=== PATIENT | female | born 1965 | race Caucasian/White ===

== ENCOUNTER 2017-03-15 15:29 | Inpatient (IN) | payer SELFPAY ==
[~2017-03-15] VITALS: Ht 157.5 cm; Wt 45.0 kg
[~2017-03-15 15:29] MED LIST: BACT800T5 PO; FENT25DI T-DERMAL; MMW SWISH-SWAL; OXYC15TA PO; ZOFR4TAB3 SL
[2017-03-15 15:31] VITALS: BP 128/82; PULSE 130; O2SAT 96
--- NOTE | 2017-03-15 15:49 | PD ---
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 Patient states that the legs have become warm and reddened over the last 3 days. She denies known injury. She denies fevers, chills, abdominal pain, nausea or vomiting. She endorses dysuria , denies back pain. Also complains of ~10lb weight loss over the last month. States that feeding tube "fell out" and doctor did not order it to be replaced. PFSH Past Medical History Hx Anticoagulant Therapy: Yes (ASA) Cancer: Yes (TONGUE) Cardiovascular Problems: No Diabetes: No Diminished Hearing: No Endocrine: No Genitourinary: No Hepatitis: No Hiatal Hernia: No Hypertension: Yes Immune Disorder: No Musculoskeletal: No Neurologic: No Psychiatric: No Reproductive: No Respiratory: Yes (COPD) Immunizations Current: Yes Thyroid Disease: No Menopausal: Yes Tubal Ligation: Yes (1986) Past Surgical History Abdominal Surgery: No AICD: No Cardiac Surgery: No Ear Surgery: No Endocrine Surgery: No Eye Surgery: No Genitourinary Surgery: No Gynecologic Surgery: No Joint Replacement: No Oral Surgery: No Pacemaker: No Thoracic Surgery: Yes (breast augmentation) Other Surgery: Yes (BREAST AUGMENTATION ) Social History Alcohol Use: Yes (VERY RARE ) Tobacco Use: No Substance Use: No Allergies-Medications (Allergen,Severity, Reaction): Coded Allergies: No Known Allergies (Unverified , 03/15/17) Reported Meds & Prescriptions Reported Meds & Active Scripts Active Reported Oxycodone (Oxycodone HCl) 15 Mg Tab 15 Mg PO Q4H PRN Fentanyl Patch 72 HR (Fentanyl) 25 Mcg/Hr Patch 12 Mcg T-DERMAL Q72H Review of Systems Except as stated in HPI: all other systems reviewed are Neg Physical Exam Narrative GENERAL: Thin, dry appearing white female in no acute distress. SKIN: Focused skin assessment warm/dry. Bilateral lower extremities with superficial desquamation, 2+ edema to the knees, nonblanching erythema with mild warmth, right greater than left. HEAD: Normocephalic. EYES: No scleral icterus. No injection or drainage. NECK: Supple, trachea midline. No JVD or lymphadenopathy. CARDIOVASCULAR: Regular rate and rhythm without murmurs, gallops, or rubs. RESPIRATORY: Breath sounds clear and equal bilaterally. No accessory muscle use. GASTROINTESTINAL: Abdomen soft, non-tender, nondistended. Active bowel sounds. MUSCULOSKELETAL: No cyanosis. Patient is ambulatory and moves extremities spontaneously. BACK: Nontender without obvious deformity. No CVA tenderness. Data Data Last Documented VS Vital Signs Date Time Temp Pulse Resp B/P Pulse Ox O2 Delivery O2 Flow Rate FiO2 03/15/17 18:43 93 12 104/63 97 Room Air Orders Complete Blood Count With Diff (03/15/17 15:58) Comprehensive Metabolic Panel (03/15/17 15:58) Prothrombin Time / Inr (Pt) (03/15/17 15:58) Act Partial Throm Time (Ptt) (03/15/17 15:58) Urinalysis - C+S If Indicated (03/15/17 15:58) Iv Access Insert/Monitor (03/15/17 15:58) Ecg Monitoring (03/15/17 15:58) Oximetry (03/15/17 15:58) Sodium Chloride 0.9% Flush (Ns Flush) (03/15/17 16:00) Sodium Chlor 0.9% 1000 Ml Inj (Ns 1000 M (03/15/17 16:00) Morphine Inj (Morphine Inj) (03/15/17 17:00) Urine Culture (03/15/17 16:53) Cefazolin Inj (Ancef Inj) (03/15/17 18:30) D5-1/2 Ns + Kcl 20 Meq Inj (D5-1/2 Ns + (03/15/17 19:00) Admit Order (Ed Use Only) (03/15/17 19:14) Labs Laboratory Tests Test 03/15/17 03/15/17 16:12 16:53 White Blood Count 6.4 TH/MM3 Red Blood Count 4.15 MIL/MM3 Hemoglobin 13.4 GM/DL Hematocrit 39.9 % Mean Corpuscular Volume 96.1 FL Mean Corpuscular Hemoglobin 32.4 PG Mean Corpuscular Hemoglobin 33.7 % Concent Red Cell Distribution Width 12.3 % Platelet Count 121 TH/MM3 Mean Platelet Volume 13.1 FL Neutrophils (%) (Auto) 85.4 % Lymphocytes (%) (Auto) 8.3 % Monocytes (%) (Auto) 5.3 % Eosinophils (%) (Auto) 0.3 % Basophils (%) (Auto) 0.7 % Neutrophils # (Auto) 5.4 TH/MM3 Lymphocytes # (Auto) 0.5 TH/MM3 Monocytes # (Auto) 0.3 TH/MM3 Eosinophils # (Auto) 0.0 TH/MM3 Basophils # (Auto) 0.0 TH/MM3 CBC Comment DIFF FINAL Differential Comment Prothrombin Time 12.7 SEC Prothromb Time International 1.1 RATIO Ratio Activated Partial 28.4 SEC Thromboplast Time Sodium Level 133 MEQ/L Potassium Level 3.2 MEQ/L Chloride Level 90 MEQ/L Carbon Dioxide Level 35.1 MEQ/L Anion Gap 8 MEQ/L Blood Urea Nitrogen 2 MG/DL Creatinine 0.28 MG/DL Estimat Glomerular Filtration 253 ML/MIN Rate Random Glucose 135 MG/DL Calcium Level 8.1 MG/DL Total Bilirubin 1.2 MG/DL Aspartate Amino Transf 101 U/L (AST/SGOT) Alanine Aminotransferase 32 U/L (ALT/SGPT) Alkaline Phosphatase 389 U/L Total Protein 6.0 GM/DL Albumin 1.9 GM/DL Urine Color YELLOW Urine Turbidity CLEAR Urine pH 5.0 Urine Specific [place] 1.003 Urine Protein NEG mg/dL Urine Glucose (UA) NEG mg/dL Urine Ketones NEG mg/dL Urine Occult Blood NEG Urine Nitrite NEG Urine Bilirubin NEG Urine Urobilinogen LESS THAN 2.0 MG/DL Urine Leukocyte Esterase LARGE Urine RBC LESS THAN 1 /hpf Urine WBC 10 /hpf Urine Bacteria RARE /hpf Urine Hyaline Casts 1 /lpf Microscopic Urinalysis Comment CULTURE INDICATED MDM Medical Decision Making Medical Screen Exam Complete: Yes Emergency Medical Condition: Yes Differential Diagnosis Dependent edema versus renal failure versus cellulitis versus electrolyte abnormality versus Narrative Course 51 YO F with PMH of 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 Patient states that the legs have become warm and reddened over the last 3 days. She denies known injury. She denies fevers, chills, abdominal pain, nausea or vomiting. She endorses dysuria , denies back pain. Also complains of ~10lb weight loss over the last month. States that feeding tube "fell out" and doctor did not order it to be replaced. She states that she has been drinking Ensure, cannot eat solid food. Oncology Dr. Shelton. Last feeding tube placed by , [facility]. Patient is tachycardic on presentation but this resolved in the exam room. Physical exam reveals a thin white female in no acute distress. Chest is clear to auscultation bilaterally. Abdomen soft and nontender. There is 2+ pitting edema to the knees bilaterally. There is mild erythema and warmth of the bilateral lower extremities, right leg greater than left. Patient was administered 4 mg IV morphine. CBC: WBC 6.4. Hemoglobin 13.4. Coags: INR 1.1. CMP: Calcium 8.1, potassium 3.2. Albumin 1.9. BUN 2, creatinine 0.28. Bilirubin 1.2, AST 101. UA: Large leukocyte Estrace, 10 WBCs, rare bacteria. Culture pending. Patient was administered IV Ancef, IV hydralazine, D5 half-normal saline and 20 mg potassium ordered. On recheck she complains of pain and was administered a second dose of IV morphine. Discussed the results of the workup with the patient as well as my intent to admit for further evaluation. She is agreeable to this plan. I spoke with Dr. Fischer who agrees to accept this patient to the medical service. Please see medicine notes for disposition. Carli Douglas Mar 15, 2017 15:49
[2017-03-15] MEDS ORDERED: SODIUM CHLORIDE 0.9% FLUSH 10 ML FLUSH IV FLUSH PRN (16:00)
[2017-03-15] MEDS ORDERED: SODIUM CHLOR 0.9% 1000 ML INJ 1,000 ML IV ONE (16:00)
[2017-03-15 16:02] VITALS: BP 113/82; PULSE 118; RESP 16; O2SAT 95
[2017-03-15] MEDS ORDERED: FENT25DI T-DERMAL (16:09)
[2017-03-15] MEDS ORDERED: OXYC15TA PO (16:09)
[2017-03-15 16:48] LABS: AUTOMATED NEUTROPHIL # 5.4 TH/MM3 (1.8-7.7); BASOPHIL % 0.7 % (0.0-2.0); EOSINOPHIL % 0.3 % (0.0-4.0); HEMATOCRIT 39.9 % (35.0-46.0); HEMO FLAGS DIFF FINAL; LYMPH % 8.3 % (9.0-44.0); LYMPHOCYTE # 0.5 TH/MM3 (1.0-4.8); MEAN CELL VOLUME 96.1 FL (80.0-100.0); MEAN CORPUSCULAR HEMOGLOBIN 32.4 PG (27.0-34.0); MEAN CORPUSCULAR HGB CONC 33.7 % (32.0-36.0); MONO % 5.3 % (0.0-8.0); NEUT % 85.4 % (16.0-70.0); PLATELET COUNT 121 TH/MM3 (150-450); RED BLOOD COUNT 4.15 MIL/MM3 (4.00-5.30); RED CELL DISTRIBUTION WIDTH 12.3 % (11.6-17.2); WHITE BLOOD COUNT 6.4 TH/MM3 (4.0-11.0)
[2017-03-15 16:52] VITALS: BP 131/71; PULSE 96; RESP 23; O2SAT 97
[2017-03-15 16:58] LABS: APTT (PATIENT) 28.4 SEC (24.3-30.1); INTERNATIONAL NORMALIZED RATIO 1.1 RATIO; PROTHROMBIN TIME - PATIENT 12.7 SEC (9.8-11.6)
[2017-03-15] MEDS ORDERED: MORPHINE SULFATE 4 MG/ML INJ IV PUSH ONE ×2 (17:00→19:30)
[2017-03-15 17:14] LABS: BACTERIA, URINE RARE /hpf; BLOOD, URINE NEG (NEG); COMMENT (UR) CULTURE INDICATED; CULTURE IF INDICATED CULTURE INDICATED; GLUCOSE,URINE NEG (NEG); HYALINE CAST, URINE 1 /lpf (RARE); KETONE, URINE NEG (NEG); NITRITE,URINE NEG (NEG); URINE COLOR YELLOW (YELLW/STRAW)
[2017-03-15] MEDS ORDERED: hydrALAZINE HCL 20 MG/ML VIAL IV PUSH ONE (17:15)
[2017-03-15 17:28] LABS: ALKALINE PHOSPHATASE 389 U/L (45-117); ALT (GPT) 32 U/L (10-53); TOTAL BILIRUBIN ADULT 1.2 MG/DL (0.2-1.0)
[2017-03-15 17:53] LABS: ANION GAP 8 MEQ/L (5-15); AST (GOT) 101 U/L (15-37); BICARBONATE 35.1 MEQ/L (21.0-32.0); BLOOD UREA NITROGEN 2 MG/DL (7-18); CHLORIDE 90 MEQ/L (98-107); GLOMERULAR FILTRATION RATE 253 ML/MIN (>89); POTASSIUM 3.2 MEQ/L (3.5-5.1); SODIUM (NA) 133 MEQ/L (136-145)
[2017-03-15 18:43] VITALS: BP 104/63; PULSE 93; RESP 12; O2SAT 97
[2017-03-15 19:50] VITALS: BP 109/69; PULSE 81; RESP 22; O2SAT 97
[2017-03-15] MEDS: D5-1/2 NS + KCL 20 MEQ INJ 1,000 ML IV SCH (19:51)
[2017-03-15 22:00] VITALS: BP_SYST 110; BP_SYST 90; BP_DIAS 67; BP_DIAS 68; PULSE 79; PULSE 95; RESP 18; RESP 19; TEMP 96.1; TEMP 97.6; O2SAT 93; O2SAT 97
[2017-03-16 03:00] VITALS: BP 101/70; PULSE 98; RESP 18; TEMP 96.8; O2SAT 94
[2017-03-16] MEDS: D5-1/2 NS + KCL 20 MEQ INJ 1,000 ML IV SCH ×2 (07:16→16:16)
[2017-03-16 07:50] VITALS: BP 94/67; PULSE 82; RESP 20; TEMP 96.1; O2SAT 95
--- NOTE | 2017-03-16 07:55 | HHI.HP ---
History of Present Illness Service Family Primary Care Physician Dr. Sharma Admission Diagnosis RLE cellulitis, UTI, hypokalemia, hypocalcemia, hypoalbuminemia Diagnoses: (1) Cancer (2) Dysphagia Review of Systems Constitutional: COMPLAINS OF: Fatigue, Weight loss, Change in appetite, DENIES : Dizziness Respiratory: DENIES: Cough, Snoring, Wheezing, Sputum production, Shortness of breath Cardiovascular: COMPLAINS OF: Lower Extremity Edema, DENIES: Chest pain, Syncope, Dyspnea on Exertion Gastrointestinal: COMPLAINS OF: Difficulty Swallowing, DENIES: Abdominal pain , Black stools, Bloody stools, Constipation, Diarrhea, Vomiting Neurologic: DENIES: Headache, Seizures, Poor Balance Psychiatric: DENIES: Anxiety, Depression Past Family Social History Allergies: Coded Allergies: No Known Allergies (Unverified , 03/15/17) Past Medical History Squamous cancer of tongue HTN Past Surgical History S/P right partial glossectomy and lymph node dissection Breast augmentation Active Ordered Medications Current Medications Medications (Trade) Dose Ordered Sig/Sagar Route Start Time Stop Time Status Last Admin Sodium Chloride 2 ml 2 ml UNSCH PRN IV FLUSH 03/15/17 16:00 (D5-1/2 NS + KCl 20 Meq Inj) 1,000 ml @ 100 mls/hr Q10H IV 03/15/17 19:00 03/16/17 07:16 (Roxicodone) 15 mg Q4H PRN PO 03/15/17 20:00 03/16/17 07:15 Family History Father kidney disease on dialysis Mother healthy Social History Quit smoking 1 year ago Occasional ETOH use Lives with Is a drywall hanger helper Physical Exam Vital Signs Vital Signs Date Time Temp Pulse Resp B/P Pulse Ox O2 Delivery O2 Flow Rate FiO2 03/16/17 03:00 96.8 98 18 101/70 94 03/15/17 23:58 16 03/15/17 22:00 97.6 95 18 90/67 93 03/15/17 22:00 96.1 79 19 110/68 97 03/15/17 19:50 81 22 109/69 97 Room Air 03/15/17 18:43 93 12 104/63 97 Room Air 03/15/17 16:52 96 23 131/71 97 Room Air 03/15/17 16:02 118 16 113/82 95 Room Air 03/15/17 15:31 130 128/82 96 Physical Exam GENERAL: This is a thin female in no apparent distress. SKIN: No rashes, ecchymoses or lesions. Cool and dry. Bilateral low extremity with minimal redness ENT: Nose without bleeding or purulent drainage. Tongue is swollen NECK: Trachea midline. No JVD or lymphadenopathy. Supple, nontender, no meningeal signs. CARDIOVASCULAR: Regular rate and rhythm without murmurs, gallops, or rubs. RESPIRATORY: Clear to auscultation. Breath sounds equal bilaterally. No wheezes , rales, or rhonchi. GASTROINTESTINAL: Abdomen soft, non-tender, nondistended. No guarding. MUSCULOSKELETAL: Extremities with minimal edema. No calf tenderness. Negative Homans sign bilaterally. NEUROLOGICAL: Awake and alert. Normal speech. Laboratory Laboratory Tests Test 03/15/17 03/15/17 16:12 16:53 White Blood Count 6.4 Red Blood Count 4.15 Hemoglobin 13.4 Hematocrit 39.9 Mean Corpuscular Volume 96.1 Mean Corpuscular Hemoglobin 32.4 Mean Corpuscular Hemoglobin 33.7 Concent Red Cell Distribution Width 12.3 Platelet Count 121 Mean Platelet Volume 13.1 Neutrophils (%) (Auto) 85.4 Lymphocytes (%) (Auto) 8.3 Monocytes (%) (Auto) 5.3 Eosinophils (%) (Auto) 0.3 Basophils (%) (Auto) 0.7 Neutrophils # (Auto) 5.4 Lymphocytes # (Auto) 0.5 Monocytes # (Auto) 0.3 Eosinophils # (Auto) 0.0 Basophils # (Auto) 0.0 CBC Comment DIFF FINAL Differential Comment Prothrombin Time 12.7 Prothromb Time International 1.1 Ratio Activated Partial 28.4 Thromboplast Time Sodium Level 133 Potassium Level 3.2 Chloride Level 90 Carbon Dioxide Level 35.1 Anion Gap 8 Blood Urea Nitrogen 2 Creatinine 0.28 Estimat Glomerular Filtration 253 Rate Random Glucose 135 Calcium Level 8.1 Total Bilirubin 1.2 Aspartate Amino Transf 101 (AST/SGOT) Alanine Aminotransferase 32 (ALT/SGPT) Alkaline Phosphatase 389 Total Protein 6.0 Albumin 1.9 Urine Color YELLOW Urine Turbidity CLEAR Urine pH 5.0 Urine Specific [place] 1.003 Urine Protein NEG Urine Glucose (UA) NEG Urine Ketones NEG Urine Occult Blood NEG Urine Nitrite NEG Urine Bilirubin NEG Urine Urobilinogen LESS THAN 2.0 Urine Leukocyte Esterase LARGE Urine RBC LESS THAN 1 Urine WBC 10 Urine Bacteria RARE Urine Hyaline Casts 1 Microscopic Urinalysis Comment CULTURE INDICATED Date/Time Procedure Status Source Growth 03/15/17 16:53 Urine Culture Received Urine Random Urine Pending Result Diagram: 03/15/17 1612 03/15/17 1612 Assessment and Plan Problem List: (1) Dysphagia Status: Acute Plan: GI consult for feeding tube placement. Patient with history of G which fell out in December. She has been trying to drink protein drinks however has had weight loss. Tongue is swollen and she is reporting difficulty swallowing. Will consult ST for evaluation (2) Cancer Status: Chronic Plan: Followed by [facility]. (3) Edema Status: Acute Plan: 1+ edema in lower extremity. Patient reports that her edema has improved. (4) Cellulitis Status: Acute Plan: Will order cefazolin. (5) Hypokalemia Status: Acute Plan: Recheck pending. On IVF D51/2 NS with 20 KCL Assessment and Plan Assessment and plan discussed with Dr. Sharma Discussed Condition With Nursing Discharge Planning Will evaluate Physician Attestation I and the WIRE WHEELER have both examined this patient and reviewed this note and I agree with these findings and plan of care. Penny Barragan. WIRE WHEELER Mar 16, 2017 7:55 am
[2017-03-16 08:26] LABS: AUTOMATED NEUTROPHIL # 3.2 TH/MM3 (1.8-7.7); EOSINOPHIL # 0.1 TH/MM3 (0-0.4); EOSINOPHIL % 2.5 % (0.0-4.0); HEMATOCRIT 35.3 % (35.0-46.0); LYMPH % 8.3 % (9.0-44.0); LYMPHOCYTE # 0.3 TH/MM3 (1.0-4.8); MEAN CELL VOLUME 94.4 FL (80.0-100.0); MEAN CORPUSCULAR HEMOGLOBIN 33.1 PG (27.0-34.0); MEAN CORPUSCULAR HGB CONC 35.1 % (32.0-36.0); MONO % 7.1 % (0.0-8.0); NEUT % 81.1 % (16.0-70.0); PLATELET COUNT 91 TH/MM3 (150-450); RED BLOOD COUNT 3.73 MIL/MM3 (4.00-5.30); RED CELL DISTRIBUTION WIDTH 12.4 % (11.6-17.2)
[2017-03-16 08:32] LABS: HEMO FLAGS AUTO DIFF
[2017-03-16 08:51] LABS: ALKALINE PHOSPHATASE 309 U/L (45-117); ALT (GPT) 21 U/L (10-53); ANION GAP 8 MEQ/L (5-15); AST (GOT) 68 U/L (15-37); BICARBONATE 35.1 MEQ/L (21.0-32.0); BLOOD UREA NITROGEN LESS THAN 1 MG/DL (7-18); CHLORIDE 97 MEQ/L (98-107); GLOMERULAR FILTRATION RATE 288 ML/MIN (>89); SODIUM (NA) 140 MEQ/L (136-145); TOTAL BILIRUBIN ADULT 1.5 MG/DL (0.2-1.0)
[2017-03-16 09:01] LABS: POTASSIUM 2.8 MEQ/L (3.5-5.1)
[2017-03-16 09:20] LABS: PLATELET ESTIMATE SMEAR LOW (NORMAL); PLATELET MORPHOLOGY NORMAL (NORMAL); STOMATOCYTES 1+ (NORMAL)
[2017-03-16 09:21] LABS: SCAN/DIFF AUTO DIFF CONFIRMED
[2017-03-16] MEDS ORDERED: POTASSIUM CHLORIDE 25 MEQ EFFERVESCENT TAB PO ONE ×2 (10:00→12:00)
[2017-03-16] MEDS: ENOXAPARIN SODIUM 40 MG/0.4 ML SYRINGE SQ SCH (10:39)
[2017-03-16] MEDS: ceFAZolin INJ 500 MG in SODIUM CHLORIDE 0.9% INJ 100 ML IV SCH ×2 (11:41→16:12)
[2017-03-16] MEDS: FAMOTIDINE 20 MG/2 ML VIAL IV PUSH SCH ×2 (11:41→20:09)
[2017-03-16 11:50] VITALS: BP 98/69; PULSE 81; RESP 20; TEMP 96.2; O2SAT 93
[2017-03-16 15:50] VITALS: BP 100/70; PULSE 83; RESP 20; TEMP 96.1; O2SAT 96
[2017-03-16] MEDS ORDERED: fentaNYL 25 MCG/HR PATCH T-DERMAL SCH (18:00)
[2017-03-16 21:30] VITALS: BP 110/76; PULSE 77; RESP 16; TEMP 96.6; O2SAT 97
[2017-03-17] VITALS: BP 119/73; PULSE 74; RESP 16; TEMP 98.4; O2SAT 96
[2017-03-17] MEDS: D5-1/2 NS + KCL 20 MEQ INJ 1,000 ML IV SCH ×3 (00:47→20:45)
[2017-03-17] MEDS: ceFAZolin INJ 500 MG in SODIUM CHLORIDE 0.9% INJ 100 ML IV SCH ×3 (00:51→16:48)
[2017-03-17 04:00] VITALS: BP 118/82; PULSE 70; RESP 16; TEMP 97.8; O2SAT 97
[2017-03-17 06:47] LABS: AUTOMATED NEUTROPHIL # 2.1 TH/MM3 (1.8-7.7); EOSINOPHIL # 0.1 TH/MM3 (0-0.4); EOSINOPHIL % 4.2 % (0.0-4.0); HEMATOCRIT 35.3 % (35.0-46.0); LYMPH % 11.2 % (9.0-44.0); LYMPHOCYTE # 0.3 TH/MM3 (1.0-4.8); MEAN CELL VOLUME 96.4 FL (80.0-100.0); MEAN CORPUSCULAR HEMOGLOBIN 33.4 PG (27.0-34.0); MEAN CORPUSCULAR HGB CONC 34.7 % (32.0-36.0); MONO % 7.8 % (0.0-8.0); NEUT % 75.8 % (16.0-70.0); PLATELET COUNT 87 TH/MM3 (150-450); RED BLOOD COUNT 3.66 MIL/MM3 (4.00-5.30); RED CELL DISTRIBUTION WIDTH 12.4 % (11.6-17.2); WHITE BLOOD COUNT 2.8 TH/MM3 (4.0-11.0)
[2017-03-17] MEDS: ENOXAPARIN SODIUM 40 MG/0.4 ML SYRINGE SQ SCH (06:47)
[2017-03-17 06:58] LABS: HEMO FLAGS AUTO DIFF
--- NOTE | 2017-03-17 07:04 | HHI.PR ---
Subjective Remarks Denies any CP or SOB. Tolerating full liquids. Reports that she has a consult with plastic surgery tomorrow for reconstruction of tongue. She will call to reschedule Objective Vital Signs Date Time Temp Pulse Resp B/P Pulse Ox O2 Delivery O2 Flow Rate FiO2 03/17/17 05:38 18 03/17/17 04:00 97.8 70 16 118/82 97 03/17/17 00:00 98.4 74 16 119/73 96 03/16/17 21:30 96.6 77 16 110/76 97 03/16/17 19:00 18 03/16/17 15:50 96.1 83 20 100/70 96 03/16/17 11:50 96.2 81 20 98/69 93 03/16/17 07:50 96.1 82 20 94/67 95 I/O 03/16/17 03/16/17 03/16/17 03/17/17 03/17/17 03/17/17 07:00 15:00 23:00 07:00 15:00 23:00 Intake Total 240 ml 530 ml Balance 240 ml 530 ml Intake Oral 240 ml 530 ml # Voids 2 3 2 # Bowel Movements 0 0 Result Diagram: 03/16/17 0556 03/16/172122 Other Results GENERAL: alert and cooperative SKIN: Warm and dry. HEAD: Normocephalic. EYES: No scleral icterus. No injection or drainage. NECK: Supple, trachea midline. No JVD or lymphadenopathy. CARDIOVASCULAR: Regular rate and rhythm without murmurs, gallops, or rubs. RESPIRATORY: Breath sounds equal bilaterally. No accessory muscle use. GASTROINTESTINAL: Abdomen soft, non-tender, nondistended. MUSCULOSKELETAL: No cyanosis, or edema. BACK: Nontender without obvious deformity. No CVA tenderness. Medications and IVs Current Medications Medications (Trade) Dose Ordered Sig/Sagar Route Start Time Stop Time Status Last Admin Sodium Chloride 2 ml 2 ml UNSCH PRN IV FLUSH 03/15/17 16:00 (D5-1/2 NS + KCl 20 Meq Inj) 1,000 ml @ 100 mls/hr Q10H IV 03/15/17 19:00 03/17/17 00:47 (Roxicodone) 15 mg Q4H PRN PO 03/15/17 20:00 03/17/17 04:38 (Pepcid Inj) 20 mg Q12H IV PUSH 03/16/17 09:00 03/16/17 20:09 Enoxaparin Sodium 40 mg 40 mg Q24H SQ 03/16/17 08:00 03/16/17 10:39 (Ancef Inj/NS Inj) 100 ml @ 200 mls/hr Q8H IV 03/16/17 09:00 03/17/17 00:51 (Duragesic 25 Mcg Patch.72 Hr) 1 patch Q3D T-DERMAL 03/16/17 18:00 03/16/17 18:00 Miscellaneous Information 1 Q3D T-DERMAL 03/19/17 18:00 (K-Lyte Cl Eff) 25 meq Q12HR PO 03/17/17 09:00 Assessment and Plan Problem List: (1) Dysphagia Status: Acute Plan: GI consult for feeding tube placement. Patient with history of G which fell out in December. She has been trying to drink protein drinks however has had weight loss. Tongue is swollen and she is reporting difficulty swallowing anything but liquids. She is currently using as straw. ST consulted and evaluated recommending continuation of full liquid. (2) Cancer Status: Chronic Plan: Squamous cell carcinoma of tongue. Followed by [facility]. (3) Edema Status: Acute Plan: Resolved. Patient reports that her edema has improved. (4) Cellulitis Status: Acute Plan: On cefazolin redness minimal will continue (5) Hypokalemia Status: Acute Plan: K 2.8 yesterday. Total of 75 meq KCL replacement given with a recheck of 4.1 will continue IVF fluids. Daily potassium added. Labs pending this am (6) Chronic pain Status: Acute Plan: Fentanyl patch increased per Dr. Sharma. Reports improved pain controll Assessment and Plan Assessment and plan discussed with Dr. Sharma Discussed Condition With Nursing. Requested nursing to contact GI about consult Discharge Planning Home with [facility] Physician Attestation I and the PROCESS STRIPPER have examined this patient and reviewed this note and I agree with these findings and plan of care. Penny Barragan PROCESS STRIPPER Mar 17, 2017 07:04
[2017-03-17 07:10] LABS: BICARBONATE 28.2 MEQ/L (21.0-32.0); MAGNESIUM 1.7 MG/DL (1.5-2.5); POTASSIUM 3.8 MEQ/L (3.5-5.1)
[2017-03-17 08:00] VITALS: BP 115/76; PULSE 80; RESP 17; TEMP 96.4; O2SAT 96
[2017-03-17 08:09] LABS: PLATELET ESTIMATE SMEAR LOW (NORMAL); PLATELET MORPHOLOGY NORMAL (NORMAL); SCAN/DIFF AUTO DIFF CONFIRMED
[2017-03-17] MEDS: POTASSIUM CHLORIDE 25 MEQ EFFERVESCENT TAB PO SCH ×2 (09:00→20:43)
[2017-03-17] MEDS: FAMOTIDINE 20 MG/2 ML VIAL IV PUSH SCH ×2 (09:02→20:43)
--- NOTE | 2017-03-17 09:18 | MB ---
cc: LEROY WHEELER D.O., HARRY M.D. DATE OF 1965 DATE OF CONSULTATION 03/17/[address] Salvador Hernandez. HISTORY OF PRESENT ILLNESS The patient is a 51-year-old white female I was asked to see for further evaluation and management of dysphagia. She had squamous cell carcinoma of the tongue diagnosed about a year ago, received surgery and radiation therapy but no chemotherapy. A gastrostomy tube had been inserted because of her oropharyngeal dysphagia but the tube fell out about three months ago. She has not been able to maintain her weight and has had difficulty with her swallowing because of the thickened tongue. She has lost about 15 pounds over the past 3 months. She has only been consuming about 2 cans of Ensure per day. She was admitted to the hospital because of lower extremity edema. Cellulitis was discovered as well as urinary tract infection and hypokalemia and hypocalcemia and hypoalbuminemia. PAST MEDICAL HISTORY Medical history is otherwise significant for hypertension. PAST SURGICAL HISTORY 1. Status post right partial glossectomy and lymph node dissection. 2. History of breast augmentation. ALLERGIES None known to medications. MEDICATIONS AT THIS TIME 1. Fentanyl patch. 2. Famotidine 20 mg IV q.12 hours. 3. Cephazolin 500 mg IV q.8 hours. 4. Lovenox injections. 5. Oxycodone p.r.n. 6. Potassium chloride. 7. Sodium chloride. FAMILY HISTORY Kidney disease. SOCIAL HISTORY Tobacco use none in the year. Alcohol use occasional. REVIEW OF SYSTEMS She has had no recent headaches. No history of seizures or strokes. No vision difficulties. No auditory problems. No abdominal pain. No chest pains or breathing difficulties. No urinary symptomatology despite the finding of a urinary tract infection. She has had no lower extremity edema. No history of pancreatic or liver disease. No history of diabetes. PHYSICAL EXAMINATION VITAL SIGNS: Her weight is 43.8 kg, temperature 97.8, pulse 70, respiratory rate 16, blood pressure 118/82. GENERAL: She is alert. She is oriented x 3. She is anicteric. She is thin. HEENT: Extraocular motions are intact. I appreciate some thickening and tenderness in the anterior and right side of the neck. No definite lymph nodes are palpable. LUNGS: Relatively clear throughout. HEART EXAM: Regular rate and rhythm with no gross murmur or gallop. ABDOMINAL EXAM: Good bowel sounds. Prior G-tube site is evident and healed. The abdomen is soft and nontender. No masses are palpable. No hepatosplenomegaly are noted. No pedal edema at this time. No palmar erythema. LABORATORY STUDIES TODAY White count 2.8, hemoglobin 12.2, platelets 87,000. INR 1.1 (Lovenox is on hold). Sodium 140, potassium 3.8, BUN 1, creatinine 0.23, calcium 7.6. Yesterday's bilirubin was 1.5 with an AST of 68 and an ALT of 21 and alkaline phosphatase of 309, albumin very low at 1.5 and a prealbumin low at 6. X-RAYS Abdominal x-ray from June of 2016 had revealed a mild ileus with the GE tube in place. IMPRESSION AND PLAN 1. Oropharyngeal dysphagia due to cancer of the tongue with prior surgery and radiation therapy. She has been losing weight. We will plan to insert a percutaneous endoscopic gastrostomy tube later today. I have reviewed the procedure with the patient including potential risks of medication reaction, bleeding, perforation and infection, though she is already receiving cephazolin. 2. Elevated liver enzymes. This pattern may suggest a cholestatic process, either intrahepatic or extrahepatic. We will order a right upper quadrant ultrasound to evaluate the biliary tree. MD WINDY Squires/NEDA /8:11 AM /9:05 AM
--- NOTE | 2017-03-17 10:39 | GIPROC ---
[facility] [address] [facility]. [facility], [address] EGD WITH PEG PROCEDURE REPORT EXAM DATE: 03/17/2017 PATIENT NAME: Briseida Hua MR#: [id number] BIRTHDATE: 1965 ATTENDING: Salvador Bowling MD ORDER #: [id number] CLINIC SPECIALIST: STATUS: inpatient INDICATIONS: The patient is a 51 yr old female here for an EGD with PEG due to orophharyngeal dysphagia due to prior partial golssectomy for squamous cell carcinoma; she received radiation therapy and no chemotherapy. She's lost 15 pounds in the past three weeks. PROCEDURE PERFORMED: EGD with PEG tube insertion ([employer], 20 Fr.) MEDICATIONS: Per Anesthesia. She's been receivng routine cephalexin. 1% xylocaine subcutaneously. TOPICAL ANESTHETIC: None CONSENT: The patient understands the risks and benefits of the procedure and understands that these risks include, but are not limited to: sedation, allergic reaction, infection, perforation and/or bleeding. Alternative means of evaluation and treatment include, among others: physical exam, x-rays, and/or surgical intervention. The patient elects to proceed with this endoscopic procedure. medical equipment was checked for proper function. Hand hygiene and appropriate measures for infection prevention was taken. After the risks, benefits and alternatives of the procedure were thoroughly explained, Informed consent was verified, confirmed and timeout was successfully executed by the treatment team. The patient was anesthetized with topical anesthesia and the Pentax pediatric gastroscope was introduced through the mouth and advanced to the second portion of the duodenum. The instrument was slowly withdrawn as the mucosa was fully examined. (The mucosa appeared normal througout. a 20 Fr. percutaneous endoscopic gastrostomy tube was placed using standard techinque.) The stomach was then inflated with air, and by a combination of transillumination and manual palpation, the site for the gastrostomy tube placement was selected and marked on the anterior abdominal wall. The skin of the anterior abdomen was surgically prepped and draped with sterile towels. Utilizing strict sterile technique, the selected site was then anesthetized with 1% xylocaine by injection into the skin and subcutaneous tissue. A 1 cm incision was made through the skin and subcutaneous tissue, and the needle/cannula assembly was then passed through the abdominal wall and through the anterior wall of the stomach, maintaining visualization with the endoscope. A snare device previously placed through the instrument channel was then opened and placed around the cannula, the needle was removed, and the insertion wire was passed through the cannula and into the stomach lumen. The snare was then loosened from the cannula, and repositioned to snare the insertion wire. The snare was then pulled up to the endoscope distal tip, and the scope was then withdrawn bringing with it the snare and insertion wire. The insertion wire was then released from the snare, and then loop-attached to the 20 Fr [employer] gastrostomy tube. Using the "pull technique", the G-tube was then pulled into place by traction on the insertion wire at the abdominal wall end. The 2 cm janny was noted at the skin surface. The G-tube insertion site was then cleansed once again, and the external bolster was placed over the tube to secure it to the abdominal wall. A sterile dressing was then applied, and the procedure terminated. The gastroscope was then slowly withdrawn and removed. ADVERSE EVENT: There were no complications. IMPRESSIONS: NL EGD; successful placement of a 20 Fr PEG tube. RECOMMENDATIONS: Return to room; begin tube feedings; clean site with water and apply gauze daily for four days. REPEAT EXAM: As needed. Salvador Bowling MD eSigned: Salvador Bowling MD 03/17/2017 10:38 AM cc: Joseph Sharma M.D. PATIENT NAME: Briseida Hua MR#: [id number]
[2017-03-17] MEDS ORDERED: PROPOFOL 200 MG/20 ML AMP IV ONE (10:46)
[2017-03-17 12:00] VITALS: BP 97/76; PULSE 75; RESP 17; TEMP 96.8; O2SAT 97
--- NOTE | 2017-03-17 15:55 | RADRPT ---
EXAM DATE/TIME: 03/17/2017 14:26 [facility] COMPARISON: No previous studies available for comparison. INDICATIONS : Elevated liver enzymes. MEDICAL HISTORY : Hypertension. Chronic obstructive pulmonary disease. Oral cancer. Anticoagulant therapy. Breast aug mentation. Appetite changes. Weight loss. Fatigue. Alcohol use. SURGICAL HISTORY : Tubal ligation. Surgery for tongue cancer. ENCOUNTER: Initial ACUITY: 1 day PAIN SCORE: 6/10 LOCATION: Right upper quadrant MEASUREMENTS: LIVER: 15.9 cm length COMMON DUCT: 4 mm RIGHT KIDNEY: 10.1 x 5.6 x 4.5 cm FINDINGS: LIVER: The echotexture of the liver is increased suggesting fatty infiltration. No intrahepatic bile or duct dilation is seen. No masses identified. The portal vein is patent. COMMON DUCT: No intraluminal mass or stone visualized. GALLBLADDER: The exam demonstrate echogenic sludge within the dependent portion of the gallbladder. No pericholecy stic fluid was evident. PANCREAS: The visualized portions are within normal limits. RIGHT KIDNEY: No evidence of hydronephrosis, stone, or mass. CONCLUSION: 1. Increased echogenicity of the liver suggesting fatty infiltration. No biliary ductal dilation iden tified. 2. Sludge filled gallbladder. Oz Cho MD on March 17, 2017 at 15:51 Board Certified Radiologist. This report was verified electronically.
[2017-03-17 16:00] VITALS: BP 118/76; PULSE 84; RESP 17; TEMP 96.9; O2SAT 96
[2017-03-17] MEDS ORDERED: oxyCODONE/ACETAMINOPHEN 10 MG/325 MG TAB PO ONE (17:30)
[2017-03-17 20:00] VITALS: BP 93/63; PULSE 98; RESP 16; TEMP 97.2; O2SAT 99
[2017-03-18] VITALS: BP 96/66; PULSE 73; RESP 16; TEMP 96.9; O2SAT 98
[2017-03-18] MEDS: ceFAZolin INJ 500 MG in SODIUM CHLORIDE 0.9% INJ 100 ML IV SCH ×3 (01:13→16:39)
[2017-03-18 05:00] VITALS: BP 103/75; PULSE 82; RESP 16; TEMP 97.8; O2SAT 97
[2017-03-18] MEDS: D5-1/2 NS + KCL 20 MEQ INJ 1,000 ML IV SCH (05:16)
[2017-03-18 07:50] VITALS: BP 102/71; PULSE 76; RESP 20; TEMP 97.6; O2SAT 98
[2017-03-18] MEDS: POTASSIUM CHLORIDE 25 MEQ EFFERVESCENT TAB PO SCH (08:41)
[2017-03-18] MEDS: ENOXAPARIN SODIUM 40 MG/0.4 ML SYRINGE SQ SCH (08:41)
[2017-03-18] MEDS: FAMOTIDINE 20 MG/2 ML VIAL IV PUSH SCH (08:42)
--- NOTE | 2017-03-18 10:50 | HHI.GIFU ---
GI Follow-up Note Consult Follow-up Subjective: Patient laying in bed comfortably. Pt states she is to be d/c today after she gets tube feeding teaching/care instructions. c/o of some pain a PEG tube site. no N/V Objective: PHYSICAL EXAMINATION: Vitals signs stable No fever . CHEST: Chest is clear to auscultation and percussion. CARDIAC: Regular rate and rhythm with no murmur gallop or rubs. ABDOMEN: Soft, nondistended, mild tenderness around PEG site but no rebound or signs of infection; no hepatosplenomegaly; bowel sounds are present in all four quadrants. EXTREMITIES: No clubbing, cyanosis, or edema. COMMAND POST SUPERINTENDENT: alert and oriented times three. Available Data (labs, X- Rays, Procedures) : ASSESSMENT/PLAN: 1. Dysphagia/Wt loss-s/p PEG 2. ABD pain-not unexpected after peg. better with pain meds. If she worsens or not tolerating TF feedings let me know. It was a pleasure seeing Briseida Hua. Thank you for this consult. Entered by: Gian العراقي MD Mar 18, 2017 10:50
[2017-03-18 11:32] LABS: AUTOMATED NEUTROPHIL # 3.6 TH/MM3 (1.8-7.7); BASOPHIL % 0.7 % (0.0-2.0); EOSINOPHIL # 0.1 TH/MM3 (0-0.4); EOSINOPHIL % 1.3 % (0.0-4.0); HEMATOCRIT 40.8 % (35.0-46.0); LYMPH % 12.7 % (9.0-44.0); LYMPHOCYTE # 0.6 TH/MM3 (1.0-4.8); MEAN CELL VOLUME 96.7 FL (80.0-100.0); MEAN CORPUSCULAR HEMOGLOBIN 32.9 PG (27.0-34.0); MEAN CORPUSCULAR HGB CONC 34.1 % (32.0-36.0); MONO % 7.1 % (0.0-8.0); NEUT % 78.2 % (16.0-70.0); PLATELET COUNT 83 TH/MM3 (150-450); RED BLOOD COUNT 4.22 MIL/MM3 (4.00-5.30); RED CELL DISTRIBUTION WIDTH 12.5 % (11.6-17.2); WHITE BLOOD COUNT 4.6 TH/MM3 (4.0-11.0)
[2017-03-18 11:38] LABS: HEMO FLAGS AUTO DIFF
[2017-03-18 11:45] LABS: BICARBONATE 29.6 MEQ/L (21.0-32.0); POTASSIUM 4.2 MEQ/L (3.5-5.1)
[2017-03-18 11:50] VITALS: BP 94/62; PULSE 81; RESP 20; TEMP 98; O2SAT 96
[2017-03-18 12:32] LABS: SCAN/DIFF AUTO DIFF CONFIRMED
--- NOTE | 2017-03-18 15:15 | RADRPT ---
EXAM DATE/TIME: 03/18/2017 14:01 [facility] COMPARISON: No previous studies available for comparison. INDICATIONS : Right arm swelling. MEDICAL HISTORY : Hypertension. Oral cancer. Anticoagulant therapy ASA. weight loss. Fatigue. SURGICAL HISTORY : Tubal ligation. Surgery for tongue cancer. Breast augmentation. ENCOUNTER: Initial ACUITY: 1 week PAIN SCORE: 4/10 LOCATION: Right arm. FINDINGS: There is spontaneous flow documented in the brachial, basilic, cephalic, axillary, and subclavian vei ns. The vessels are compressible and augmentation response is documented. No filling defects are se en. The flow is phasic with respiration. Direction of flow in the jugular vein is caudal. CONCLUSION: No evidence of deep venous thrombosis within the right upper extremity. Brayan Lowry MD on March 18, 2017 at 15:12 Board Certified Radiologist. This report was verified electronically.
[2017-03-18 15:50] VITALS: BP 91/59; PULSE 81; RESP 20; TEMP 97.7; O2SAT 97
[2017-03-18] MEDS ORDERED: KLYTECL PO (16:35)
[2017-03-18] MEDS ORDERED: CEPH-460 PO (16:35)
--- NOTE | 2017-03-18 16:37 | HHI.FF ---
Face to Face Verification Diagnosis: (1) Dysphagia (2) Cellulitis (3) Cancer Home Health Nursing Order: Medical education Signs/symptoms of disease process I have seen patient Briseida Hua on 03/18/17. My clinical findings support the need for the requested home health care services because: Ltd mobility - disease progression High risk of falls I certify that my clinical findings support that this patient is homebound because: Unsteady gait/balance Need for psychosocial assistance Penny Quesada Mar 18, 2017 16:37
--- NOTE | 2017-03-18 16:50 | HHI.DS ---
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 Patient states that the legs have become warm and reddened over the last 3 days. She denies known injury. She denies fevers, chills, abdominal pain, nausea or vomiting. She endorses dysuria , denies back pain. Also complains of ~10lb weight loss over the last month. States that feeding tube "fell out" and doctor did not order it to be replaced. CBC/BMP: 03/18/17 1056 03/18/17 1056 Significant Findings Laboratory Tests Test 03/15/17 03/16/17 03/17/17 03/18/17 16:53 05:56 06:06 10:56 Urine Leukocyte Esterase LARGE (NEG) Urine WBC 10 /hpf (0-5) Urine Bacteria RARE /hpf (NONE) Red Blood Count 3.73 MIL/MM3 3.66 MIL/MM3 (4.00-5.30) (4.00-5.30) Platelet Count 91 TH/MM3 87 TH/MM3 83 TH/MM3 (150-450) (150-450) (150-450) Mean Platelet Volume 12.9 FL 12.9 FL 12.4 FL (7.0-11.0) (7.0-11.0) (7.0-11.0) Neutrophils (%) (Auto) 81.1 % 75.8 % 78.2 % (16.0-70.0) (16.0-70.0) (16.0-70.0) Lymphocytes (%) (Auto) 8.3 % (9.0-44.0) Lymphocytes # (Auto) 0.3 TH/MM3 0.3 TH/MM3 0.6 TH/MM3 (1.0-4.8) (1.0-4.8) (1.0-4.8) Platelet Estimate LOW (NORMAL) LOW (NORMAL) Stomatocytes 1+ (NORMAL) Potassium Level 2.8 MEQ/L (3.5-5.1) Chloride Level 97 MEQ/L (98-107) Carbon Dioxide Level 35.1 MEQ/L (21.0-32.0) Blood Urea Nitrogen LESS THAN 1 1 MG/DL (7-18) 2 MG/DL (7-18) MG/DL (7-18) Creatinine 0.25 MG/DL 0.23 MG/DL 0.26 MG/DL (0.50-1.00) (0.50-1.00) (0.50-1.00) Random Glucose 132 MG/DL 127 MG/DL (74-106) (74-106) Calcium Level 7.6 MG/DL 7.6 MG/DL 8.0 MG/DL (8.5-10.1) (8.5-10.1) (8.5-10.1) Total Bilirubin 1.5 MG/DL (0.2-1.0) Aspartate Amino Transf 68 U/L (15-37) (AST/SGOT) Alkaline Phosphatase 309 U/L (45-117) Total Protein 4.6 GM/DL (6.4-8.2) Albumin 1.5 GM/DL (3.4-5.0) Prealbumin 6 MG/DL (20-40) White Blood Count 2.8 TH/MM3 (4.0-11.0) Eosinophils (%) (Auto) 4.2 % (0.0-4.0) Imaging Last 72 hours Impressions Upper Extremity Ultrasound 03/18/17 0000 Signed Impressions: Service Date/Time: Saturday, March 18, 2017 14:01 - CONCLUSION: No evidence of deep venous thrombosis within the right upper extremity. Brayan Lowry MD Gall Bladder Ultrasound 03/17/17 0000 Signed Impressions: Service Date/Time: Friday, March 17, 2017 14:26 - CONCLUSION: 1. Increased echogenicity of the liver suggesting fatty infiltration. No biliary ductal dilation identified. 2. Sludge filled gallbladder. Oz Cho MD PE at Discharge GENERAL: alert and cooperative SKIN: Warm and dry. HEAD: Normocephalic. EYES: No scleral icterus. No injection or drainage. NECK: Supple, trachea midline. No JVD or lymphadenopathy. CARDIOVASCULAR: Regular rate and rhythm without murmurs, gallops, or rubs. RESPIRATORY: Breath sounds equal bilaterally. No accessory muscle use. GASTROINTESTINAL: Abdomen soft, non-tender, nondistended. MUSCULOSKELETAL: No cyanosis, or edema. BACK: Nontender without obvious deformity. No CVA tenderness. 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 Patient states that the legs have become warm and reddened over the last 3 days. She denies known injury. She denies fevers, chills, abdominal pain, nausea or vomiting. She endorses dysuria , denies back pain. Also complains of ~10lb weight loss over the last month. States that feeding tube "fell out" and doctor did not order it to be replaced. During her hospital course she was treated with IV antibiotics for lower extremity cellulitis and discharged on oral. She also had a peg tube placed which she tolerated well. She is followed by a senior software engineer on the outside but did have a consult for recommendations which will be continued. She is discharged home with [facility] Discharge Disposition: Disch w/ Home Health Serv Discharge Instructions DIET: Follow Instructions for: Heart Healthy Diet, On Tube Feeding (Jevity 1.5 120 ml 9am, 12p, 3p, and 6 pm) Activities you can perform: Regular-No Restrictions New Medications: Cephalexin (Keflex) 500 Mg Cap 500 MG PO Q6H Infection Days 5 Ref 0 CAP Potassium Bicarb-Chloride Effervescent (Effervescent Potassium Chloride 25 Meq) 25 Meq Tab 25 MEQ PO DAILY Electrolyte Replacement #30 TAB Continued Medications: Fentanyl Patch 72 HR (Fentanyl Patch 72 HR) 25 Mcg/Hr Patch 12 MCG T-DERMAL Q72H Pain Management #10 Ref 0 PATCH Oxycodone (Oxycodone) 15 Mg Tab 15 MG PO Q4H PRN PAIN Ref 0 TAB Penny Quesada Mar 18, 2017 16:50
--- NOTE | 2017-03-18 16:56 | HHI.DS ---
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 Patient states that the legs have become warm and reddened over the last 3 days. She denies known injury. She denies fevers, chills, abdominal pain, nausea or vomiting. She endorses dysuria , denies back pain. Also complains of ~10lb weight loss over the last month. States that feeding tube "fell out" and doctor did not order it to be replaced. CBC/BMP: 03/18/17 1056 03/18/17 1056 Significant Findings Laboratory Tests Test 03/15/17 03/16/17 03/17/17 03/18/17 16:53 05:56 06:06 10:56 Urine Leukocyte Esterase LARGE (NEG) Urine WBC 10 /hpf (0-5) Urine Bacteria RARE /hpf (NONE) Red Blood Count 3.73 MIL/MM3 3.66 MIL/MM3 (4.00-5.30) (4.00-5.30) Platelet Count 91 TH/MM3 87 TH/MM3 83 TH/MM3 (150-450) (150-450) (150-450) Mean Platelet Volume 12.9 FL 12.9 FL 12.4 FL (7.0-11.0) (7.0-11.0) (7.0-11.0) Neutrophils (%) (Auto) 81.1 % 75.8 % 78.2 % (16.0-70.0) (16.0-70.0) (16.0-70.0) Lymphocytes (%) (Auto) 8.3 % (9.0-44.0) Lymphocytes # (Auto) 0.3 TH/MM3 0.3 TH/MM3 0.6 TH/MM3 (1.0-4.8) (1.0-4.8) (1.0-4.8) Platelet Estimate LOW (NORMAL) LOW (NORMAL) Stomatocytes 1+ (NORMAL) Potassium Level 2.8 MEQ/L (3.5-5.1) Chloride Level 97 MEQ/L (98-107) Carbon Dioxide Level 35.1 MEQ/L (21.0-32.0) Blood Urea Nitrogen LESS THAN 1 1 MG/DL (7-18) 2 MG/DL (7-18) MG/DL (7-18) Creatinine 0.25 MG/DL 0.23 MG/DL 0.26 MG/DL (0.50-1.00) (0.50-1.00) (0.50-1.00) Random Glucose 132 MG/DL 127 MG/DL (74-106) (74-106) Calcium Level 7.6 MG/DL 7.6 MG/DL 8.0 MG/DL (8.5-10.1) (8.5-10.1) (8.5-10.1) Total Bilirubin 1.5 MG/DL (0.2-1.0) Aspartate Amino Transf 68 U/L (15-37) (AST/SGOT) Alkaline Phosphatase 309 U/L (45-117) Total Protein 4.6 GM/DL (6.4-8.2) Albumin 1.5 GM/DL (3.4-5.0) Prealbumin 6 MG/DL (20-40) White Blood Count 2.8 TH/MM3 (4.0-11.0) Eosinophils (%) (Auto) 4.2 % (0.0-4.0) PE at Discharge GENERAL: alert and cooperative SKIN: Warm and dry. HEAD: Normocephalic. EYES: No scleral icterus. No injection or drainage. NECK: Supple, trachea midline. No JVD or lymphadenopathy. CARDIOVASCULAR: Regular rate and rhythm without murmurs, gallops, or rubs. RESPIRATORY: Breath sounds equal bilaterally. No accessory muscle use. GASTROINTESTINAL: Abdomen soft, non-tender, nondistended. MUSCULOSKELETAL: No cyanosis, or edema. BACK: Nontender without obvious deformity. No CVA tenderness. 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 Patient states that the legs have become warm and reddened over the last 3 days. She denies known injury. She denies fevers, chills, abdominal pain, nausea or vomiting. She endorses dysuria , denies back pain. Also complains of ~10lb weight loss over the last month. States that feeding tube "fell out" and doctor did not order it to be replaced. Patient was treated with IV antibiotics for lower extremity cellulitis and UTI and discharged with keflex for 5 days. She also had a peg tube placed which she tolerated well and started feeding. She is going to be discharged home with [facility] and follow up appt with Dr. Sanjiv hendricks. Discharge Disposition: Disch w/ Home Health Serv Discharge Instructions DIET: Follow Instructions for: On Tube Feeding (Jevity 1.5 120 ml 9am, 12p, 3p , and 6 pm) Speech Therapy-Diet Recommenda: Other Activities you can perform: Regular-No Restrictions Follow up Referrals: Oncology PCP Follow-up - 03/23/17 with sanjiv New Medications: Cephalexin (Keflex) 500 Mg Cap 500 MG PO Q6H Infection Days 5 Ref 0 CAP Potassium Bicarb-Chloride Effervescent (Effervescent Potassium Chloride 25 Meq) 25 Meq Tab 25 MEQ PO DAILY Electrolyte Replacement #30 TAB Continued Medications: Fentanyl Patch 72 HR (Fentanyl Patch 72 HR) 25 Mcg/Hr Patch 12 MCG T-DERMAL Q72H Pain Management #10 Ref 0 PATCH Oxycodone (Oxycodone) 15 Mg Tab 15 MG PO Q4H PRN PAIN Ref 0 TAB Penny Quesada Mar 18, 2017 16:56
[2017-03-19] MEDS ORDERED: REMOVE OLD DURAGESIC (FENTANYL) PATCH T-DERMAL SCH (18:00)
== END 2017-03-18 19:10 | disposition home or self-care (01) | DRG 392 ==
LOC: NEPE 15:29 → NEDA 19:16 → HOCA 21:25
PROVIDERS: ADMIT Family Medicine; ATTEND Family Medicine
PROC: 0DH68UZ Insertion of Feeding Device into Stomach, Via Natural or Artificial Opening Endoscopic (ICD-10-PCS; principal; 2017-03-17 10:10)
DX: R13.12 Dysphagia, oropharyngeal phase (principal); N39.0 Urinary tract infection, site not specified; E88.09 Other disorders of plasma-protein metabolism, not elsewhere classified; E83.51 Hypocalcemia; L03.115 Cellulitis of right lower limb; I10 Essential (primary) hypertension; R60.0 Localized edema; Z85.810 Personal history of malignant neoplasm of tongue; Z92.3 Personal history of irradiation; E87.6 Hypokalemia; G89.29 Other chronic pain; J44.9 Chronic obstructive pulmonary disease, unspecified
CPT/HCPCS: 76705; 80048; 80053; 81001; 83735; 84100; 84132; 84134; 85025; 85610; 85730; 87077; 87086; 87186; 93971; 96361; 96374; 96375; J0690; J1650; J2270; J3480; J7030

== ENCOUNTER 2017-03-28 18:33 | Emergency (ER) | payer OTHER ==
[~2017-03-28] VITALS: Ht 157.5 cm; Wt 42.0 kg
[~2017-03-28 18:33] MED LIST changes: -BACT800T5 PO; +CEPH-460 PO; +KLYTECL PO; -MMW SWISH-SWAL; -ZOFR4TAB3 SL
[2017-03-28 18:34] VITALS: BP 154/87; PULSE 118; RESP 18; TEMP 98.7; O2SAT 98
--- NOTE | 2017-03-28 20:56 | PD ---
HPI Chief Complaint: Edema Time Seen by Provider: 20:56 Travel History International Travel<30 days: No Contact w/Intl Traveler<30days: No Traveled to known affect area: No History of Present Illness HPI 51-year-old female came to the emergency room with history of with history of bilateral leg edema. Patient says that she was treated for cellulitis and now it's coming back. Patient has history of tongue cancer that is in remission as per her. Vital signs were stable. She has been afebrile. She was tachycardic when she first arrived [facility] Past Medical History Narrative Medical List of her past medical, surgical, social and family history is reviewed from the nursing note Hx Anticoagulant Therapy: Yes (ASA) Cancer: Yes (TONGUE) Cardiovascular Problems: No Chemotherapy: Yes (TONGUE CANCER) COPD: Yes Diabetes: No Diminished Hearing: No Endocrine: No Genitourinary: No Hepatitis: No Hiatal Hernia: No Hypertension: Yes Immune Disorder: No Musculoskeletal: No Neurologic: No Psychiatric: No Reproductive: No Respiratory: Yes (COPD) Immunizations Current: Yes Thyroid Disease: No ?: Not Menopausal: Yes Tubal Ligation: Yes (1986) Past Surgical History Abdominal Surgery: No AICD: No Cardiac Surgery: No Ear Surgery: No Endocrine Surgery: No Eye Surgery: No Genitourinary Surgery: No Gynecologic Surgery: No Joint Replacement: No Oral Surgery: Yes (SURGERY FOR TONGUE CANCER) Pacemaker: No Thoracic Surgery: Yes (breast augmentation) Other Surgery: Yes (BREAST AUGMENTATION ) Social History Alcohol Use: Yes (OCCASIONALLY) Tobacco Use: No Substance Use: No Allergies-Medications (Allergen,Severity, Reaction): Coded Allergies: No Known Allergies (Unverified , 03/28/17) Comments No known drug allergies. Reported Meds & Prescriptions Reported Meds & Active Scripts Active Keflex (Cephalexin) 500 Mg Cap 500 Mg PO Q6H 5 Days Effervescent Potassium Chloride 25 Meq (Potassium Bicarb/Potassium Chloride) 25 Meq Tab 25 Meq PO DAILY Reported Oxycodone (Oxycodone HCl) 15 Mg Tab 15 Mg PO Q4H PRN Fentanyl Patch 72 HR (Fentanyl) 25 Mcg/Hr Patch 12 Mcg T-DERMAL Q72H Narrative Medication List of her home medications reviewed from the nursing note. Review of Systems Except as stated in HPI: all other systems reviewed are Neg Physical Exam Narrative GENERAL: Awake, alert, mild distress SKIN: Focused skin assessment warm/dry. Bronze color skin HEAD: Atraumatic. Normocephalic. EYES: Pupils equal and round. No scleral icterus. No injection or drainage. ENT: No nasal bleeding or discharge. Mucous membranes pink and moist. Swelling at the base of her tongue and submental area, non tender and hard, fixed NECK: Trachea midline. No JVD. CARDIOVASCULAR: Regular rate and rhythm. No murmur appreciated. RESPIRATORY: No accessory muscle use. Clear to auscultation. Breath sounds equal bilaterally. GASTROINTESTINAL: Abdomen soft, non-tender, nondistended. Hepatic and splenic margins not palpable. MUSCULOSKELETAL: No obvious deformities. No clubbing. No cyanosis. Bilateral pedal edema symmetrical with slightly erythematous skin but no open sores.. NEUROLOGICAL: Awake and alert. No obvious cranial nerve deficits. Motor grossly within normal limits. Normal speech. PSYCHIATRIC: Appropriate mood and affect; insight and judgment normal. Data Data Last Documented VS Vital Signs Date Time Temp Pulse Resp B/P Pulse Ox O2 Delivery O2 Flow Rate FiO2 03/28/17 23:13 97.2 84 18 102/70 96 Room Air Orders Urinalysis - C+S If Indicated (03/28/17 20:27) Complete Blood Count With Diff (03/28/17 21:10) Comprehensive Metabolic Panel (03/28/17 21:10) Iv Access Insert/Monitor (03/28/17 21:10) Ecg Monitoring (03/28/17 21:10) Oximetry (03/28/17 21:10) Sodium Chloride 0.9% Flush (Ns Flush) (03/28/17 21:15) B-Type Natriuretic Peptide (03/28/17 21:10) Labs Laboratory Tests Test 03/28/17 03/28/17 20:30 21:26 Urine Color YELLOW Urine Turbidity CLEAR Urine pH 6.0 Urine Specific [place] 1.003 Urine Protein NEG mg/dL Urine Glucose (UA) NEG mg/dL Urine Ketones NEG mg/dL Urine Occult Blood NEG Urine Nitrite NEG Urine Bilirubin NEG Urine Urobilinogen LESS THAN 2.0 MG/DL Urine Leukocyte Esterase NEG Urine RBC LESS THAN 1 /hpf Urine WBC 1 /hpf Urine Squamous Epithelial <1 /hpf Cells Microscopic Urinalysis Comment CULT NOT INDICATED White Blood Count 4.6 TH/MM3 Red Blood Count 4.63 MIL/MM3 Hemoglobin 15.4 GM/DL Hematocrit 44.2 % Mean Corpuscular Volume 95.5 FL Mean Corpuscular Hemoglobin 33.3 PG Mean Corpuscular Hemoglobin 34.9 % Concent Red Cell Distribution Width 12.0 % Platelet Count 156 TH/MM3 Mean Platelet Volume 12.4 FL Neutrophils (%) (Auto) 81.5 % Lymphocytes (%) (Auto) 10.7 % Monocytes (%) (Auto) 5.0 % Eosinophils (%) (Auto) 2.1 % Basophils (%) (Auto) 0.7 % Neutrophils # (Auto) 3.8 TH/MM3 Lymphocytes # (Auto) 0.5 TH/MM3 Monocytes # (Auto) 0.2 TH/MM3 Eosinophils # (Auto) 0.1 TH/MM3 Basophils # (Auto) 0.0 TH/MM3 CBC Comment DIFF FINAL Differential Comment Sodium Level 135 MEQ/L Potassium Level 3.6 MEQ/L Chloride Level 92 MEQ/L Carbon Dioxide Level 34.9 MEQ/L Anion Gap 8 MEQ/L Blood Urea Nitrogen 3 MG/DL Creatinine 0.37 MG/DL Estimat Glomerular Filtration 183 ML/MIN Rate Random Glucose 101 MG/DL Calcium Level 8.5 MG/DL Total Bilirubin 0.7 MG/DL Aspartate Amino Transf 92 U/L (AST/SGOT) Alanine Aminotransferase 35 U/L (ALT/SGPT) Alkaline Phosphatase 426 U/L B-Type Natriuretic Peptide 64 PG/ML Total Protein 7.0 GM/DL Albumin 2.2 GM/DL MDM Medical Decision Making Medical Screen Exam Complete: Yes Emergency Medical Condition: Yes Medical Record Reviewed: Yes Differential Diagnosis Cellulitis, dependent edema Narrative Course 11:12 PM blood test results of back and within normal limit. She does have low albumin and this edema could be from hypoalbuminemia. I will discharge her home. She does not require antibiotic. Procedures EKG Prior to Arrival: No Diagnosis Primary Impression: dependent leg edema Additional Impression: Hypoalbuminemia Referrals: Primary Care Physician Additional Instructions: Please return to the ER if the condition worsens or any other new concerns. Otherwise follow-up with your primary care. Use compression stockings to prevent leg edema. Keep the legs elevated above the heart level as much as possible. Med/Other Pt SpecificInfo: No Change to Meds Disposition: 01 DISCHARGE HOME Condition: Stable Cornelio Tejada MD Mar 28, 2017 20:56 Cornelio Tejada MD Mar 28, 2017 20:56
[2017-03-28 21:02] LABS: BLOOD, URINE NEG (NEG); COMMENT (UR) CULT NOT INDICATED; CULTURE IF INDICATED CULT NOT INDICATED; GLUCOSE,URINE NEG (NEG); KETONE, URINE NEG (NEG); NITRITE,URINE NEG (NEG); SQUAMOUS EPITHELIAL CELL URINE <1 /hpf (0-5); URINE COLOR YELLOW (YELLW/STRAW)
[2017-03-28 21:06] VITALS: BP 138/86; PULSE 101; RESP 12; O2SAT 98
[2017-03-28] MEDS ORDERED: SODIUM CHLORIDE 0.9% FLUSH 10 ML FLUSH IV FLUSH PRN (21:15)
[2017-03-28 21:42] LABS: AUTOMATED NEUTROPHIL # 3.8 TH/MM3 (1.8-7.7); BASOPHIL % 0.7 % (0.0-2.0); EOSINOPHIL # 0.1 TH/MM3 (0-0.4); EOSINOPHIL % 2.1 % (0.0-4.0); HEMATOCRIT 44.2 % (35.0-46.0); HEMO FLAGS DIFF FINAL; LYMPH % 10.7 % (9.0-44.0); LYMPHOCYTE # 0.5 TH/MM3 (1.0-4.8); MEAN CELL VOLUME 95.5 FL (80.0-100.0); MEAN CORPUSCULAR HEMOGLOBIN 33.3 PG (27.0-34.0); MEAN CORPUSCULAR HGB CONC 34.9 % (32.0-36.0); NEUT % 81.5 % (16.0-70.0); PLATELET COUNT 156 TH/MM3 (150-450); RED BLOOD COUNT 4.63 MIL/MM3 (4.00-5.30); WHITE BLOOD COUNT 4.6 TH/MM3 (4.0-11.0)
[2017-03-28 22:03] LABS: ALT (GPT) 35 U/L (10-53); ANION GAP 8 MEQ/L (5-15); AST (GOT) 92 U/L (15-37); BICARBONATE 34.9 MEQ/L (21.0-32.0); BLOOD UREA NITROGEN 3 MG/DL (7-18); CHLORIDE 92 MEQ/L (98-107); GLOMERULAR FILTRATION RATE 183 ML/MIN (>89); POTASSIUM 3.6 MEQ/L (3.5-5.1); SODIUM (NA) 135 MEQ/L (136-145)
[2017-03-28 22:06] LABS: ALKALINE PHOSPHATASE 426 U/L (45-117); TOTAL BILIRUBIN ADULT 0.7 MG/DL (0.2-1.0)
[2017-03-28 22:40] VITALS: BP 113/81; PULSE 87; RESP 13; O2SAT 97
[2017-03-28 23:13] VITALS: BP 102/70; PULSE 84; RESP 18; TEMP 97.2; O2SAT 96
== END 2017-03-29 00:08 | disposition home or self-care (01) ==
LOC: NEPE 18:33
DX: R60.9 Edema, unspecified (principal); E88.09 Other disorders of plasma-protein metabolism, not elsewhere classified; R00.0 Tachycardia, unspecified; J44.9 Chronic obstructive pulmonary disease, unspecified; I10 Essential (primary) hypertension; Z79.82 Long term (current) use of aspirin; Z79.899 Other long term (current) drug therapy
CPT/HCPCS: 80053; 81001; 83880; 85025; 99283

== ENCOUNTER 2017-04-14 20:06 | Inpatient (IN) | payer OTHER ==
[~2017-04-14] VITALS: Ht 157.5 cm; Wt 45.6 kg
[2017-04-14 20:16] VITALS: BP 126/79; PULSE 136; RESP 16; TEMP 99.1; O2SAT 96
--- NOTE | 2017-04-14 20:21 | PD ---
Physical Exam Date Seen by Provider: Apr 14, 2017 Time Seen by Provider: 20:19 Narrative 51 yo female here for evaluation of N/V. has had this since today. History of cellulitis and tongue cancer. States she is here for evaluation of N/V. No other symptom reported at this time. Vitals are stable in triage with exception of tachycardia. Awaiting Bed placement. Data Data Last Documented VS Vital Signs Date Time Temp Pulse Resp B/P Pulse Ox O2 Delivery O2 Flow Rate FiO2 04/14/17 20:16 99.1 136 16 126/79 96 Room Air [facility] Medical Record Reviewed: Yes Supervised Visit with KENJI: No Jer Vásquez Apr 14, 2017 20:21
--- NOTE | 2017-04-14 20:36 | PD ---
HPI Chief Complaint: GI Complaint Time Seen by Provider: 20:36 Travel History International Travel<30 days: No Contact w/Intl Traveler<30days: No Traveled to known affect area: No History of Present Illness HPI 51 year-old female history of COPD, hypertension, tongue cancer, presents to emergency department for evaluation of not feeling well. Patient states she has had nausea and vomiting today. States that she does not eat food. However clarifies later that she does drink through a straw. Denies abdominal pain. She has been chilled without fever. Patient is also concerned about bilateral lower extremity edema that is becoming more painful and extends to her thighs.. She states she has been treated for cellulitis recently. Denies any injury. No other symptoms to report. PFSH Past Medical History Hx Anticoagulant Therapy: Yes (ASA) Cancer: Yes (TONGUE) Cardiovascular Problems: No Chemotherapy: Yes (TONGUE CANCER) COPD: Yes Diabetes: No Diminished Hearing: No Endocrine: No Genitourinary: No Hepatitis: No Hiatal Hernia: No Hypertension: Yes Immune Disorder: No Musculoskeletal: No Neurologic: No Psychiatric: No Reproductive: No Respiratory: Yes (COPD) Immunizations Current: Yes Thyroid Disease: No Menopausal: Yes Tubal Ligation: Yes (1986) Past Surgical History Abdominal Surgery: Yes (PEG TUBE) AICD: No Cardiac Surgery: No Ear Surgery: No Endocrine Surgery: No Eye Surgery: No Genitourinary Surgery: No Gynecologic Surgery: No Joint Replacement: No Oral Surgery: Yes (SURGERY FOR TONGUE CANCER) Pacemaker: No Thoracic Surgery: Yes (breast augmentation) Other Surgery: Yes (BREAST AUGMENTATION ) Social History Alcohol Use: Yes (OCCASIONALLY) Tobacco Use: No Substance Use: No Allergies-Medications (Allergen,Severity, Reaction): Coded Allergies: No Known Allergies (Unverified , 03/28/17) Reported Meds & Prescriptions Reported Meds & Active Scripts Active Effervescent Potassium Chloride 25 Meq (Potassium Bicarb/Potassium Chloride) 25 Meq Tab 25 Meq PO DAILY Reported Oxycodone (Oxycodone HCl) 15 Mg Tab 15 Mg PO Q4H PRN Fentanyl Patch 72 HR (Fentanyl) 25 Mcg/Hr Patch 12 Mcg T-DERMAL Q72H Review of Systems Except as stated in HPI: all other systems reviewed are Neg Physical Exam Narrative GENERAL: Chronically ill-appearing female patient, sitting up in bed, in no acute distress SKIN: Focused skin assessment warm/dry. HEAD: Atraumatic. Normocephalic. EYES: Pupils equal and round. No scleral icterus. No injection or drainage. ENT: No nasal bleeding or discharge. Mucous membranes pink and moist. Large submental growth. NECK: Trachea midline. No JVD. CARDIOVASCULAR: Tachycardic rate and rhythm. No murmur appreciated. RESPIRATORY: No accessory muscle use. Diminished to auscultation. Breath sounds equal bilaterally. GASTROINTESTINAL: Abdomen soft, non-tender, nondistended. PEG tube in place Hepatic and splenic margins not palpable. MUSCULOSKELETAL: No obvious deformities. No clubbing. No cyanosis. 2+ lower extremity, pitting edema that extends to the mid thigh. NEUROLOGICAL: Awake and alert. No obvious cranial nerve deficits. Motor grossly within normal limits. Normal speech. PSYCHIATRIC: Appropriate mood and affect; insight and judgment normal. Data Data Last Documented VS Vital Signs Date Time Temp Pulse Resp B/P Pulse Ox O2 Delivery O2 Flow Rate FiO2 04/14/17 21:39 100 16 107/63 95 Room Air 04/14/17 20:16 99.1 Orders Electrocardiogram (04/14/17 20:36) Complete Blood Count With Diff (04/14/17 20:36) Comprehensive Metabolic Panel (04/14/17 20:36) Prothrombin Time / Inr (Pt) (04/14/17 20:36) Act Partial Throm Time (Ptt) (04/14/17 20:36) Lactic Acid Sepsis Protocol (04/14/17 20:36) Urinalysis - C+S If Indicated (04/14/17 20:36) Blood Culture (04/14/17 20:36) Chest, Single Ap (04/14/17 20:36) Blood Glucose (04/14/17 20:36) Ecg Monitoring (04/14/17 20:36) Iv Access Insert/Monitor (04/14/17 20:36) Oximetry (04/14/17 20:36) Oxygen Administration (04/14/17 20:36) Ondansetron Inj (Zofran Inj) (04/14/17 20:45) B-Type Natriuretic Peptide (04/14/17 20:36) Ketorolac Inj (Toradol Inj) (04/14/17 21:45) Admit Order (Ed Use Only) (04/14/17 21:39) Consult Medical Oncology (04/14/17 ) Ceftriaxone Inj (Rocephin Inj) (04/14/17 21:45) Azithromycin Inj (Zithromax Inj) (04/14/17 21:45) Blood Culture (04/14/17 21:39) Labs Laboratory Tests Test 04/14/17 21:15 White Blood Count 4.3 TH/MM3 Red Blood Count 4.02 MIL/MM3 Hemoglobin 13.2 GM/DL Hematocrit 38.1 % Mean Corpuscular Volume 94.8 FL Mean Corpuscular Hemoglobin 32.9 PG Mean Corpuscular Hemoglobin 34.7 % Concent Red Cell Distribution Width 12.3 % Platelet Count 105 TH/MM3 Mean Platelet Volume 13.1 FL Neutrophils (%) (Auto) 92.9 % Lymphocytes (%) (Auto) 3.3 % Monocytes (%) (Auto) 3.2 % Eosinophils (%) (Auto) 0.3 % Basophils (%) (Auto) 0.3 % Neutrophils # (Auto) 4.0 TH/MM3 Lymphocytes # (Auto) 0.1 TH/MM3 Monocytes # (Auto) 0.1 TH/MM3 Eosinophils # (Auto) 0.0 TH/MM3 Basophils # (Auto) 0.0 TH/MM3 CBC Comment AUTO DIFF Prothrombin Time 11.6 SEC Prothromb Time International 1.0 RATIO Ratio Activated Partial 25.2 SEC Thromboplast Time Sodium Level 133 MEQ/L Potassium Level 3.5 MEQ/L Chloride Level 90 MEQ/L Carbon Dioxide Level 36.2 MEQ/L Anion Gap 7 MEQ/L Blood Urea Nitrogen 4 MG/DL Creatinine 0.30 MG/DL Estimat Glomerular Filtration 234 ML/MIN Rate Random Glucose 116 MG/DL Lactic Acid Level 1.2 mmol/L Calcium Level 8.2 MG/DL Total Bilirubin 0.9 MG/DL Aspartate Amino Transf 69 U/L (AST/SGOT) Alanine Aminotransferase 23 U/L (ALT/SGPT) Alkaline Phosphatase 268 U/L Total Protein 5.6 GM/DL Albumin 1.7 GM/DL [facility] Medical Decision Making Medical Screen Exam Complete: Yes Emergency Medical Condition: Yes Medical Record Reviewed: Yes Differential Diagnosis Sepsis versus pneumonia versus electrolyte abnormality versus failure to thrive Narrative Course 51 year-old female presents to the emergency department for evaluation. Patient appears chronically ill. She does have 2+ edema/third spacing of both lower extremities extending to the mid thighs. She is tachycardic with a low- grade temperature. Laboratory Tests Test 04/14/17 21:15 White Blood Count 4.3 TH/MM3 Red Blood Count 4.02 MIL/MM3 Hemoglobin 13.2 GM/DL Hematocrit 38.1 % Mean Corpuscular Volume 94.8 FL Mean Corpuscular Hemoglobin 32.9 PG Mean Corpuscular Hemoglobin 34.7 % Concent Red Cell Distribution Width 12.3 % Platelet Count 105 TH/MM3 Mean Platelet Volume 13.1 FL Neutrophils (%) (Auto) 92.9 % Lymphocytes (%) (Auto) 3.3 % Monocytes (%) (Auto) 3.2 % Eosinophils (%) (Auto) 0.3 % Basophils (%) (Auto) 0.3 % Neutrophils # (Auto) 4.0 TH/MM3 Lymphocytes # (Auto) 0.1 TH/MM3 Monocytes # (Auto) 0.1 TH/MM3 Eosinophils # (Auto) 0.0 TH/MM3 Basophils # (Auto) 0.0 TH/MM3 CBC Comment AUTO DIFF Prothrombin Time 11.6 SEC Prothromb Time International 1.0 RATIO Ratio Activated Partial 25.2 SEC Thromboplast Time Sodium Level 133 MEQ/L Potassium Level 3.5 MEQ/L Chloride Level 90 MEQ/L Carbon Dioxide Level 36.2 MEQ/L Anion Gap 7 MEQ/L Blood Urea Nitrogen 4 MG/DL Creatinine 0.30 MG/DL Estimat Glomerular Filtration 234 ML/MIN Rate Random Glucose 116 MG/DL Lactic Acid Level 1.2 mmol/L Calcium Level 8.2 MG/DL Total Bilirubin 0.9 MG/DL Aspartate Amino Transf 69 U/L (AST/SGOT) Alanine Aminotransferase 23 U/L (ALT/SGPT) Alkaline Phosphatase 268 U/L Total Protein 5.6 GM/DL Albumin 1.7 GM/DL I spoke with Dr. Sharma, in regards to the patient. He requests patient be admitted on telemetry. Patient is treated with Rocephin and azithromycin for pneumonia as chest x-ray shows bilateral lobe infiltrates. There is concern that the patient is aspirating. Sepsis Criteria SIRS Criteria (2 or more): Heart rate over 90, RR > 20 or PaCO2 < 32 Sepsis Criteria (SIRS+source): Infect source susp/known Diagnosis Primary Impression: Pneumonia Qualified Code: J18.9 - Pneumonia of both lower lobes due to infectious organism Additional Impressions: Leg edema Cancer Hypoalbuminemia Admitting Information Admitting Physician Requests: Admit Condition: Stable Haleigh Harmon Apr 14, 2017 20:36
[2017-04-14] MEDS ORDERED: ONDANSETRON HCL 4 MG/2 ML VIAL IV ONE (20:45)
[2017-04-14 21:03] VITALS: BP 108/72; PULSE 114; RESP 18; O2SAT 97
--- NOTE | 2017-04-14 21:08 | RADRPT ---
EXAM DATE/TIME: 04/14/2017 20:45 [facility] COMPARISON: No previous studies available for comparison. INDICATIONS : Fever. MEDICAL HISTORY : Carcinoma, oral cavity. Chronic obstructive pulmonary disease. SURGICAL HISTORY : None. ENCOUNTER: Initial ACUITY: 1 day PAIN SCORE: 10/10 LOCATION: Bilateral chest FINDINGS: A single portable frontal view of the chest shows dense consolidation involving the right lower lobe and to a lesser degree left lower lobe. No effusions. Heart is normal in size. A scoliotic and degene rative spine. CONCLUSION: Bilateral lower lobe infiltrates more pronounced on the right. Phillip Lopez Jr., MD on April 14, 2017 at 21:06 Board Certified Radiologist. This report was verified electronically.
[2017-04-14 21:39] VITALS: BP 107/63; PULSE 100; RESP 16; O2SAT 95
--- NOTE | 2017-04-14 21:44 | PD ---
Data Data Last Documented VS Vital Signs Date Time Temp Pulse Resp B/P Pulse Ox O2 Delivery O2 Flow Rate FiO2 04/14/17 21:39 100 16 107/63 95 Room Air 04/14/17 20:16 99.1 Orders Electrocardiogram (04/14/17 20:36) Complete Blood Count With Diff (04/14/17 20:36) Comprehensive Metabolic Panel (04/14/17 20:36) Prothrombin Time / Inr (Pt) (04/14/17 20:36) Act Partial Throm Time (Ptt) (04/14/17 20:36) Lactic Acid Sepsis Protocol (04/14/17 20:36) Urinalysis - C+S If Indicated (04/14/17 20:36) Blood Culture (04/14/17 20:36) Chest, Single Ap (04/14/17 20:36) Blood Glucose (04/14/17 20:36) Ecg Monitoring (04/14/17 20:36) Iv Access Insert/Monitor (04/14/17 20:36) Oximetry (04/14/17 20:36) Oxygen Administration (04/14/17 20:36) Ondansetron Inj (Zofran Inj) (04/14/17 20:45) B-Type Natriuretic Peptide (04/14/17 20:36) Ketorolac Inj (Toradol Inj) (04/14/17 21:45) Admit Order (Ed Use Only) (04/14/17 21:39) Consult Medical Oncology (04/14/17 ) Ceftriaxone Inj (Rocephin Inj) (04/14/17 21:45) Azithromycin Inj (Zithromax Inj) (04/14/17 21:45) Blood Culture (04/14/17 21:39) MDM Supervised Visit with KENJI: Yes Narrative Course The history, exam, and medical decision-making in the associated mid-level provider note were completed with my assistance. I reviewed and agree with the findings presented. I attest that I had a [id number] encounter with the patient on the same day, and personally performed and documented my assessment and findings in the medical record. *My assessment and Findings: 51 year-old woman presents not feeling well with subjective fevers, chills, some cough, and some lower extremity swelling. She appears to have some anasarca and pitting edema in her lower extremities going all the way up into the thighs. She describes general swelling earlier. She is a history of tongue cancer status post resection and radiation. States she is a lot of swelling in her tongue, has difficulty swallowing. She is a PEG tube that she eats through mostly. She states she could have some fluids but does have trouble swallowing. X-ray shows infiltrate concerning for aspiration. She likely has aspiration pneumonia and probably anasarca from debility. She smells of alcohol and states she drinks wine frequently but not daily. We'll plan on admission for treatment for likely aspiration pneumonia. Cristian Yanes MD Apr 14, 2017 21:44
[2017-04-14] MEDS ORDERED: KETOROLAC TROMETHAMINE 30 MG/ML (IVP) VIAL IV PUSH ONE (21:45)
[2017-04-14] MEDS ORDERED: AZITHROMYCIN INJ 500 MG in SODIUM CHLOR 0.9% 250 ML INJ 250 ML IV ONE (21:45)
[2017-04-14] MEDS ORDERED: cefTRIAXone INJ 1,000 MG in SODIUM CHLORIDE 0.9% INJ 100 ML IV ONE (21:45)
[2017-04-14 22:01] LABS: BASOPHIL % 0.3 % (0.0-2.0); EOSINOPHIL % 0.3 % (0.0-4.0); HEMATOCRIT 38.1 % (35.0-46.0); LYMPH % 3.3 % (9.0-44.0); LYMPHOCYTE # 0.1 TH/MM3 (1.0-4.8); MEAN CELL VOLUME 94.8 FL (80.0-100.0); MEAN CORPUSCULAR HEMOGLOBIN 32.9 PG (27.0-34.0); MEAN CORPUSCULAR HGB CONC 34.7 % (32.0-36.0); MONO % 3.2 % (0.0-8.0); NEUT % 92.9 % (16.0-70.0); PLATELET COUNT 105 TH/MM3 (150-450); RED BLOOD COUNT 4.02 MIL/MM3 (4.00-5.30); RED CELL DISTRIBUTION WIDTH 12.3 % (11.6-17.2); WHITE BLOOD COUNT 4.3 TH/MM3 (4.0-11.0)
[2017-04-14 22:05] LABS: HEMO FLAGS AUTO DIFF
[2017-04-14 22:09] LABS: APTT (PATIENT) 25.2 SEC (24.3-30.1); PROTHROMBIN TIME - PATIENT 11.6 SEC (9.8-11.6)
[2017-04-14] MEDS ORDERED: NALOXONE HCL 0.4 MG/ML AMP IV PRN (22:15)
[2017-04-14] MEDS ORDERED: SODIUM CHLORIDE 0.9% FLUSH 10 ML FLUSH IV FLUSH PRN (22:15)
[2017-04-14] MEDS ORDERED: ONDANSETRON HCL 4 MG/2 ML VIAL IVP PRN (22:15)
[2017-04-14 22:22] LABS: ALKALINE PHOSPHATASE 268 U/L (45-117); ALT (GPT) 23 U/L (10-53); TOTAL BILIRUBIN ADULT 0.9 MG/DL (0.2-1.0)
[2017-04-14 22:24] LABS: ANION GAP 7 MEQ/L (5-15); AST (GOT) 69 U/L (15-37); BICARBONATE 36.2 MEQ/L (21.0-32.0); BLOOD UREA NITROGEN 4 MG/DL (7-18); CHLORIDE 90 MEQ/L (98-107); GLOMERULAR FILTRATION RATE 234 ML/MIN (>89); POTASSIUM 3.5 MEQ/L (3.5-5.1); SODIUM (NA) 133 MEQ/L (136-145)
[2017-04-14] MEDS ORDERED: fentaNYL 25 MCG/HR PATCH T-DERMAL SCH (22:30)
[2017-04-14 22:37] LABS: PLATELET ESTIMATE SMEAR LOW (NORMAL); PLATELET MORPHOLOGY ENLARGED (NORMAL); SCAN/DIFF AUTO DIFF CONFIRMED; STOMATOCYTES 1+ (NORMAL)
[2017-04-14 22:53] VITALS: BP 104/62; PULSE 94; RESP 18; O2SAT 97
[2017-04-14] MEDS: SODIUM CHLOR 0.45% 1000 ML INJ 1,000 ML IV SCH (22:53)
[2017-04-15] VITALS (10 sets, daily range): BP systolic 92–109; BP diastolic 60–72; PULSE 72–101; RESP 16–20; TEMP 96–96.6; O2SAT 93–100
[2017-04-15 07:49] LABS: AUTOMATED NEUTROPHIL # 2.3 TH/MM3 (1.8-7.7); BASOPHIL % 0.4 % (0.0-2.0); EOSINOPHIL % 1.5 % (0.0-4.0); HEMATOCRIT 33.4 % (35.0-46.0); LYMPH % 8.1 % (9.0-44.0); LYMPHOCYTE # 0.2 TH/MM3 (1.0-4.8); MEAN CELL VOLUME 95.7 FL (80.0-100.0); MEAN CORPUSCULAR HEMOGLOBIN 32.3 PG (27.0-34.0); MEAN CORPUSCULAR HGB CONC 33.7 % (32.0-36.0); PLATELET COUNT 71 TH/MM3 (150-450); RED BLOOD COUNT 3.49 MIL/MM3 (4.00-5.30); RED CELL DISTRIBUTION WIDTH 12.5 % (11.6-17.2); WHITE BLOOD COUNT 2.8 TH/MM3 (4.0-11.0)
[2017-04-15 07:53] LABS: HEMO FLAGS AUTO DIFF
[2017-04-15 08:36] LABS: ANION GAP 7 MEQ/L (5-15)
[2017-04-15 08:38] LABS: ALKALINE PHOSPHATASE 211 U/L (45-117); ALT (GPT) 18 U/L (10-53); AST (GOT) 53 U/L (15-37); BICARBONATE 36.8 MEQ/L (21.0-32.0); BLOOD UREA NITROGEN 4 MG/DL (7-18); CHLORIDE 92 MEQ/L (98-107); GLOMERULAR FILTRATION RATE 396 ML/MIN (>89); SODIUM (NA) 136 MEQ/L (136-145); TOTAL BILIRUBIN ADULT 0.7 MG/DL (0.2-1.0)
[2017-04-15 08:52] LABS: POTASSIUM 2.7 MEQ/L (3.5-5.1)
[2017-04-15] MEDS: SODIUM CHLORIDE 0.9% FLUSH 10 ML FLUSH IV FLUSH SCH ×2 (09:00→21:00)
[2017-04-15] MEDS: POTASSIUM CHLORIDE 25 MEQ EFFERVESCENT TAB PO SCH (09:00)
[2017-04-15 09:01] LABS: PLATELET ESTIMATE SMEAR LOW (NORMAL); PLATELET MORPHOLOGY ENLARGED (NORMAL)
[2017-04-15 09:02] LABS: SCAN/DIFF AUTO DIFF CONFIRMED; STOMATOCYTES 1+ (NORMAL)
[2017-04-15] MEDS ORDERED: POTASSIUM CHLORIDE 25 MEQ EFFERVESCENT TAB PO ONE (10:15)
--- NOTE | 2017-04-15 11:11 | EKG ---
Date Performed: 04/14/2017 Time Performed: 21:06:52 PTAGE: 51 years EKG: SINUS TACHYCARDIA MODERATE T-WAVE ABNORMALITY ABNORMAL ECG NO PREVIOUS TRACING DOCTOR: Minda Rich Interpretating Date/Time 04/15/2017 11:11:09
[2017-04-15] MEDS: SODIUM CHLOR 0.45% 1000 ML INJ 1,000 ML IV SCH (12:11)
[2017-04-15] MEDS: NYSTAT/DIPHENHY/LIDO MOUTHWASH (Adult) 120ML SWISH-SWAL SCH ×3 (12:14→21:50)
[2017-04-15] MEDS ORDERED: DIATRIZOATE MEGLUM/DIATRIZOATE SOD 9 ML CUP PO ONE (12:15)
[2017-04-15] MEDS: AZITHROMYCIN INJ 500 MG in SODIUM CHLOR 0.9% 250 ML INJ 250 ML IV SCH (12:16)
[2017-04-15] MEDS: cefTRIAXone INJ 1,000 MG in SODIUM CHLORIDE 0.9% INJ 100 ML IV SCH (12:17)
--- NOTE | 2017-04-15 15:23 | HHI.HP ---
History of Present Illness Service Family medicine Primary Care Physician Joseph Sharma, DO Admission Diagnosis BILAT PNA; BLE EDEMA; TONGUE CA Diagnoses: (1) Hypokalemia Diagnosis: Principal (2) Dysphagia Diagnosis: Principal (3) Pneumonia Diagnosis: Principal History of Present Illness Patient is 51 year-old female history of COPD, hypertension, tongue cancer, presents to emergency department for evaluation of not feeling well. Patient states she has had nausea and vomiting with abdominal pain. CT ordered of abdomen. States that she does not eat food secondary to tongue cancer and difficulty swallowing however she does drink through a straw. She has a PEG tube present but states that she can only tolerate about 1-2 cans per day. She appears cachetic. She was found to have a bilateral pneumonia possibly aspiration. Pulmonary and ST consulted. ST recommending full liquid and possible modified barium swallow evaluation. Patient is also found to be pancytopenic with WBC 2.8, HGB 11.3, and PLTs of 71. Hematology oncology consulted. Patient reports that she is not sure if she is cancer free, swelling is noted in neck region. Patient is also concerned about bilateral lower extremity edema that is becoming more painful and extends to her thighs. This AM swelling appears to have improved. She states she has been treated for cellulitis recently. Denies any injury. Review of Systems Constitutional: COMPLAINS OF: Fatigue, Weight loss, Chills Ears, nose, mouth, throat: COMPLAINS OF: Oral lesions, Throat pain, Hoarseness Respiratory: DENIES: Cough, Shortness of breath Cardiovascular: COMPLAINS OF: Lower Extremity Edema, DENIES: Chest pain, Palpitations Gastrointestinal: COMPLAINS OF: Abdominal pain, Difficulty Swallowing, DENIES : Constipation, Diarrhea Musculoskeletal: DENIES: Stiffness Neurologic: DENIES: Headache Psychiatric: DENIES: Anxiety, Confusion Past Family Social History Allergies: Coded Allergies: No Known Allergies (Unverified , 03/28/17) Past Medical History Tongue cancer COPD HTN Past Surgical History Peg tube tongue cancer surgery breast augmentation Active Ordered Medications Current Medications Medications (Trade) Dose Ordered Sig/Sagar Route Start Time Stop Time Status Last Admin (10/06 NS 1000 ml Inj) 1,000 ml @ 75 mls/hr [id number] IV 04/14/17 22:12 04/15/17 12:11 (NS Flush) 2 ml UNSCH PRN IV FLUSH 04/14/17 22:15 (NS Flush) 2 ml BID IV FLUSH 04/15/17 09:00 (Zofran Inj) 4 mg Q6H PRN IVP 04/14/17 22:15 (Narcan Inj) 0.4 mg UNSCH PRN IV 04/14/17 22:15 (Duragesic 25 Mcg Patch.72 Hr) 25 patch Q72H T-DERMAL 04/14/17 22:30 (K-Lyte Cl Eff) 25 meq DAILY PO 04/15/17 09:00 04/15/17 09:00 (Roxicodone) 15 mg Q4H PRN PO 04/14/17 22:30 04/15/17 14:16 Multi-Ingredient Mouthwash/Gargle 10 ml 10 ml QID SWISH-SWAL 04/15/17 13:00 04/15/17 12:14 Ceftriaxone Sodium 1000 mg/ Sodium Chloride 100 ml @ 200 mls/hr Q24H IV 04/15/17 10:00 04/15/17 12:17 (Zithromax Inj/ NS 250 ml Inj) 250 ml @ 250 mls/hr Q24H IV 04/15/17 12:00 04/15/17 12:16 Social History 2 drinks daily Vapor use lives with Physical Exam Vital Signs Vital Signs Date Time Temp Pulse Resp B/P Pulse Ox O2 Delivery O2 Flow Rate FiO2 04/15/17 12:00 96.2 76 18 96/71 97 04/15/17 08:00 96.0 76 16 97/60 97 04/15/17 05:43 96 04/15/17 04:05 72 04/15/17 04:00 96.6 82 16 99/67 100 04/15/17 01:18 101 04/15/17 00:00 96.2 98 18 109/72 97 04/14/17 22:53 94 18 104/62 97 Room Air 04/14/17 21:39 100 16 107/63 95 Room Air 04/14/17 21:03 114 18 108/72 97 04/14/17 20:16 99.1 136 16 126/79 96 Room Air Physical Exam GENERAL: Chronically ill-appearing female patient, sitting up in bed, in no acute distress SKIN: warm/dry. HEAD: Atraumatic. Normocephalic. EYES: Pupils equal and round. No scleral icterus. No injection or drainage. ENT: No nasal bleeding or discharge. Mucous membranes pink and moist. Large submental growth. NECK: Trachea midline. No JVD. CARDIOVASCULAR: Regular rate and rhythm. No murmur appreciated. RESPIRATORY: No accessory muscle use. Diminished to auscultation. Breath sounds equal bilaterally. GASTROINTESTINAL: Abdomen soft, tender, nondistended. PEG tube in place Hepatic and splenic margins not palpable. MUSCULOSKELETAL: No obvious deformities. No clubbing. No cyanosis. Minimal lower extremity edema NEUROLOGICAL: Awake and alert. No obvious cranial nerve deficits. Motor grossly within normal limits. Normal speech. PSYCHIATRIC: Appropriate mood and affect; insight and judgment normal. Laboratory Laboratory Tests Test 04/14/17 04/15/17 21:15 06:15 White Blood Count 4.3 2.8 Red Blood Count 4.02 3.49 Hemoglobin 13.2 11.3 Hematocrit 38.1 33.4 Mean Corpuscular Volume 94.8 95.7 Mean Corpuscular Hemoglobin 32.9 32.3 Mean Corpuscular Hemoglobin 34.7 33.7 Concent Red Cell Distribution Width 12.3 12.5 Platelet Count 105 71 Mean Platelet Volume 13.1 12.8 Neutrophils (%) (Auto) 92.9 83.0 Lymphocytes (%) (Auto) 3.3 8.1 Monocytes (%) (Auto) 3.2 7.0 Eosinophils (%) (Auto) 0.3 1.5 Basophils (%) (Auto) 0.3 0.4 Neutrophils # (Auto) 4.0 2.3 Lymphocytes # (Auto) 0.1 0.2 Monocytes # (Auto) 0.1 0.2 Eosinophils # (Auto) 0.0 0.0 Basophils # (Auto) 0.0 0.0 CBC Comment AUTO DIFF AUTO DIFF Differential Comment AUTO DIFF AUTO DIFF CONFIRMED CONFIRMED Platelet Estimate LOW LOW Platelet Morphology Comment ENLARGED ENLARGED Stomatocytes 1+ 1+ Prothrombin Time 11.6 Prothromb Time International 1.0 Ratio Activated Partial 25.2 Thromboplast Time Sodium Level 133 136 Potassium Level 3.5 2.7 Chloride Level 90 92 Carbon Dioxide Level 36.2 36.8 Anion Gap 7 7 Blood Urea Nitrogen 4 4 Creatinine 0.30 0.19 Estimat Glomerular Filtration 234 396 Rate Random Glucose 116 80 Lactic Acid Level 1.2 Calcium Level 8.2 7.7 Total Bilirubin 0.9 0.7 Aspartate Amino Transf 69 53 (AST/SGOT) Alanine Aminotransferase 23 18 (ALT/SGPT) Alkaline Phosphatase 268 211 Troponin I LESS THAN 0.02 B-Type Natriuretic Peptide 96 Total Protein 5.6 4.6 Albumin 1.7 1.3 Date/Time Procedure Status Source Growth 04/14/17 21:28 Aerobic Blood Culture - Preliminary Resulted Blood Peripheral NO GROWTH IN 1 DAY 04/14/17 21:28 Anaerobic Blood Culture - Preliminary Resulted Blood Peripheral NO GROWTH IN 1 DAY Result Diagram: 04/15/1761404/15/17614 Imaging Last 72 hours Impressions Chest X-Ray 04/14/172035 Signed Impressions: Service Date/Time: Friday, April 14, 2017 20:45 - CONCLUSION: Bilateral lower lobe infiltrates more pronounced on the right. Phillip Lopez Jr., MD Assessment and Plan Problem List: (1) Pneumonia Status: Acute Plan: Chest Xray with bilateral lower lobe pneumonia. Possibly aspiration. Pulmonary consulted. Rocephin and azithromycin ordered ST evaluation: Full liquid and a modified barium swallow to be considered. Will order (2) Hypokalemia Status: Acute Plan: Replacement ordered. Potassium 2.7 this AM. Recheck at 1600 (3) Dysphagia Status: Acute Plan: Patient on full liquid diet. Modified barium ordered (4) Chronic pain Status: Acute Plan: Continue current pain medication. Well controlled (5) Leg edema Status: Acute Plan: 1+ edema after elevation all night. Will monitor (6) Hypoalbuminemia Status: Acute Plan: Dietary consult ordered for recommendation for feeding. She has been doing bolus however may benefit from continuous if she tolerates. Patient does not tolerate feeding. Reports that she takes only 1-2 cans per day secondary to abdominal discomfort. She appears very malnourished. (7) Pancytopenia Status: Acute Plan: Hematology consulted. WBC 2.8, HGB 11.3 and Plt 71 Recheck in AM (8) Thrush, oral Status: Acute Plan: Magic mouth wash ordered. Assessment and Plan Assessment and plan discussed with Dr. Sharma Discussed Condition With Nursing Physician Attestation I and the RETAIL DEPARTMENT SUPERVISOR have both examined this patient and reviewed this note and I agree with these findings and plan of care. Joseph Sharma DO Problem Qualifiers (1) Pneumonia: Qualified Code: J18.9 - Pneumonia of both lower lobes due to infectious organism Gellermann,Penny M. [facility] Apr 15, 2017 15:23
[2017-04-15] MEDS: FAMOTIDINE 20 MG/2 ML VIAL IV PUSH SCH ×2 (18:07→21:50)
--- NOTE | 2017-04-15 19:24 | RADRPT ---
EXAM DATE/TIME: 04/15/2017 19:07 [facility] COMPARISON: No previous studies available for comparison. INDICATIONS : Abdominal pain. ORAL CONTRAST: Prescribed oral contrast ingested. RADIATION DOSE: 6.64 CTDIvol (mGy) MEDICAL HISTORY : Hypertension. Chronic obstructive pulmonary disease. Carcinoma, oral cavity. SURGICAL HISTORY : Tubal ligation. Peg tube. Breast augmentation. ENCOUNTER: Initial ACUITY: 1 day PAIN SCALE: 6/10 LOCATION: All quadrants. TECHNIQUE: Volumetric scanning of the abdomen and pelvis was performed. Using automated exposure control and ad justment of the mA and/or kV according to patient size, radiation dose was kept as low as reasonably achievable to obtain optimal diagnostic quality images. DICOM format image data is available electro nically for review and comparison. FINDINGS: LOWER LUNGS: Minimal pleural thickening is present right base. LIVER: Moderate ascites is present. The liver is inhomogeneous. SPLEEN: Normal size without lesion. PANCREAS: Within normal limits. KIDNEYS: Normal in size and shape. There is no mass, stone, or hydronephrosis. ADRENAL GLANDS: Within normal limits. VASCULAR: Moderate vascular calcifications are noted. BOWEL/MESENTERY: Moderate ascites is present the bowel wall thickening splenic flexure suggesting colitis. ABDOMINAL WALL: Within normal limits. RETROPERITONEUM: There is no lymphadenopathy. BLADDER: No wall thickening or mass. REPRODUCTIVE: Within normal limits. INGUINAL: There is no lymphadenopathy or hernia. MUSCULOSKELETAL: Within normal limits for patient age. CONCLUSION: Moderate ascites with small liver. Bowel wall thickening splenic flexure suggesting colitis. G-tube in good position. Buster Cho MD FACR on April 15, 2017 at 19:20 Board Certified Radiologist. This report was verified electronically.
[2017-04-15] MEDS ORDERED: POTASSIUM BICARBONATE 25 MEQ EFFERVESCENT TAB PO ONE (19:45)
[2017-04-16] VITALS (8 sets, daily range): BP systolic 86–111; BP diastolic 61–76; PULSE 16–87; RESP 16–21; TEMP 96.1–96.8; O2SAT 93–98
[2017-04-16] MEDS: SODIUM CHLOR 0.45% 1000 ML INJ 1,000 ML IV SCH ×2 (00:52→20:16)
--- NOTE | 2017-04-16 05:18 | MB ---
cc: JOEL PAINTING DATE OF CONSULTATION 04/15/[address] Sharma REASON FOR CONSULTATION Evaluation for pneumonia COPD. HISTORY OF PRESENT ILLNESS Mr. Hua is a 51-year-old female who has history of CA of the tongue. She had a surgery done at [facility] where a left arm skin graft was placed on the tongue and she had a skin graft from the right side to the left. She also received 33 radiation treatments. She came to the hospital with complaint of swelling in her legs which was getting worse. She had some nausea, abdominal discomfort, cough; no fever or chills, no night sweats. No nausea or vomiting. She has PET tube but is not able to tolerate feeding more than a couple of cans. Sometimes she chokes on water. The patient came to the hospital. She had a workup done. WBC count was 2.8, hemoglobin 11.3, hematocrit 33.4, MCV 95, platelet count 71, sodium 136, potassium 2.7, chloride 92, CO2 36, BUN 4, creatinine 0.19. INR is 1.0. Her chest x-ray shows bibasilar infiltrate, more on the right side. PAST MEDICAL HISTORY 1. Significant for a history of CA of the tongue status post resection and radiation treatment. 2. History of skin graft to the tongue. 3. Breast augmentation. 4. PEG tube placement. 5. Hypertension. 6. COPD. MEDICATIONS She is currently taking - 1. Famotidine 20 mg a day. 1. Magic mouthwash. 2. Zithromax 500 mg per day. 3. Rocephin 1 gram per day. 4. Potassium supplement. 5. Fentanyl 25 mcg patch every 72 hours. 6. Oxycodone 15 mg q. 4 hours. ALLERGIES No known drug allergies. SOCIAL HISTORY She is . She used to work as a tank truck driver. She has history of smoking which she quit about a year ago and she still drinks wine. FAMILY HISTORY She is . She has two children, four grandchildren. REVIEW OF SYSTEMS She has lost weight, feels weak. No DVT or pulmonary embolism. No seizure, stroke or epilepsy. PHYSICAL EXAMINATION GENERAL: A moderately built, moderately-nourished female, not in acute distress. VITAL SIGNS: Blood pressure 96/71, heart rate 72, respirations 18, temperature 96.2. HEENT EXAMINATION: Pupils are equal and reactive to light. She has had tongue surgery. NECK: Supple. JVP not raised. CHEST: Slight decreased breath sounds at the bases. CV: S1 and S2 normal. Abdomen Soft, nondistended. She has PEG tube in place. EXTREMITIES: 1-2+ pedal edema. DREDGE ENGINEER: She is alert and oriented x 3. No focal deficit. IMPRESSION 1. Basilar lung infiltrate, possibility of aspiration. 2. CA of the tongue status post resection and radiation treatment. 3. History of nicotine use. 4. Alcohol use. 5. Dysphagia. 6. Possible aspiration. PLAN 1. I will continue with antibiotics. 2. Consult speech therapy evaluation. 3. Continue with tube feeding. 4. Supplement her potassium. 5. Monitor electrolytes. 6. She also had thrombocytopenia. We will monitor. 7. Further treatment will depend on her course in the hospital. Thank you, Dr. Sharma, for this consultation. MD EVIE Benitez/NEDA /4:04 PM /5:06 AM
[2017-04-16 07:11] LABS: AUTOMATED NEUTROPHIL # 1.8 TH/MM3 (1.8-7.7); BASOPHIL % 0.6 % (0.0-2.0); EOSINOPHIL # 0.1 TH/MM3 (0-0.4); EOSINOPHIL % 3.1 % (0.0-4.0); HEMATOCRIT 38.8 % (35.0-46.0); LYMPH % 15.7 % (9.0-44.0); LYMPHOCYTE # 0.4 TH/MM3 (1.0-4.8); MEAN CELL VOLUME 95.7 FL (80.0-100.0); MEAN CORPUSCULAR HEMOGLOBIN 33.1 PG (27.0-34.0); MEAN CORPUSCULAR HGB CONC 34.6 % (32.0-36.0); MONO % 9.6 % (0.0-8.0); PLATELET COUNT 91 TH/MM3 (150-450); RED BLOOD COUNT 4.05 MIL/MM3 (4.00-5.30); RED CELL DISTRIBUTION WIDTH 12.5 % (11.6-17.2); WHITE BLOOD COUNT 2.5 TH/MM3 (4.0-11.0)
[2017-04-16 07:16] LABS: HEMO FLAGS AUTO DIFF
[2017-04-16 07:33] LABS: BICARBONATE 34.7 MEQ/L (21.0-32.0); MAGNESIUM 1.6 MG/DL (1.5-2.5); POTASSIUM 3.8 MEQ/L (3.5-5.1)
[2017-04-16 08:46] LABS: PLATELET ESTIMATE SMEAR LOW (NORMAL); PLATELET MORPHOLOGY ENLARGED (NORMAL); SCAN/DIFF FINAL DIFF MANUAL; TARGET CELLS 1+ (NORMAL)
[2017-04-16] MEDS: NYSTAT/DIPHENHY/LIDO MOUTHWASH (Adult) 120ML SWISH-SWAL SCH ×4 (10:26→20:14)
[2017-04-16] MEDS: cefTRIAXone INJ 1,000 MG in SODIUM CHLORIDE 0.9% INJ 100 ML IV SCH (10:27)
[2017-04-16] MEDS: FAMOTIDINE 20 MG/2 ML VIAL IV PUSH SCH ×2 (10:27→20:13)
[2017-04-16] MEDS: POTASSIUM CHLORIDE 25 MEQ EFFERVESCENT TAB PO SCH (10:27)
--- NOTE | 2017-04-16 10:27 | RADRPT ---
EXAM DATE/TIME: 04/16/2017 00:00 [facility] COMPARISON: No previous studies available for comparison. INDICATIONS : Dysphagia since removal of tongue cancer. FLUORO TIME: 1.3 minutes IMAGE COUNT: 0 CONTRAST: Dose as prescribed by speech pathologist. MEDICAL HISTORY : Carcinoma, tongue. SURGICAL HISTORY : Removal of tongue cancer. ENCOUNTER: Initial ACUITY: >1 year PAIN SCORE: 0/10 LOCATION: Esophagus. FINDINGS: The examination was performed in conjunction with speech pathology. CONCLUSION: Please refer to speech pathology report for complete discussion. Jaylen Hernandez MD on April 16, 2017 at 10:25 Board Certified Radiologist. This report was verified electronically.
[2017-04-16] MEDS: SODIUM CHLORIDE 0.9% FLUSH 10 ML FLUSH IV FLUSH SCH ×2 (10:28→20:16)
[2017-04-16] MEDS: guaiFENesin E.R. 600 MG TAB PO SCH ×2 (10:34→20:13)
[2017-04-16] MEDS: AZITHROMYCIN INJ 500 MG in SODIUM CHLOR 0.9% 250 ML INJ 250 ML IV SCH (11:42)
[2017-04-16] MEDS ORDERED: IOHEXOL 350 MG/ML 10 ML VIAL (for RAD DIAG) IV ONE (12:13)
--- NOTE | 2017-04-16 12:32 | RADRPT ---
EXAM DATE/TIME: 04/16/2017 12:00 [facility] COMPARISON: No previous studies available for comparison. INDICATIONS : Right neck swelling, history of tongue cancer IV CONTRAST: 80 cc Omnipaque 350 (iohexol) IV RADIATION DOSE: 16.03 CTDIvol (mGy) MEDICAL HISTORY : Carcinoma, tongue. Chronic obstructive pulmonary disease. SURGICAL HISTORY : None. ENCOUNTER: Initial ACUITY: 3 days PAIN SCALE: 0/10 LOCATION: Right neck TECHNIQUE: Volumetric scanning of the neck was performed. Using automated exposure control and adjustment of th e mA and/or kV according to patient size, radiation dose was kept as low as reasonably achievable to obtain optimal diagnostic quality images. DICOM format image data is available electronically for r eview and comparison. FINDINGS: There is no evidence for any appreciable pathological adenopathy in the patient's neck. The parotid glands, left submandibular gland appear intact. The thyroid gland are inhomogeneous without any maximo nant mass. There are surgical clips at the site of right submandibular gland probably resected surgic ally. There are clips in the region of the patient's tongue as well. The visceral compartment is red sly intact without infiltrating mass. The visualized sinuses are clear. CONCLUSION: Unremarkable study except for postsurgical changes. Jaylen Hernandez MD on April 16, 2017 at 12:26 Board Certified Radiologist. This report was verified electronically.
--- NOTE | 2017-04-16 13:40 | HHI.PR ---
Subjective Remarks Patient seen at bedside. Productive cough. Remains on room air. Objective Vital Signs Date Time Temp Pulse Resp B/P Pulse Ox O2 Delivery O2 Flow Rate FiO2 04/16/17 12:58 96.4 87 21 110/74 96 04/16/17 08:39 96.1 78 20 111/76 95 04/16/17 04:10 18 04/16/17 04:09 73 04/16/17 04:00 96.7 79 16 101/64 94 04/16/17 00:05 83 04/16/17 00:00 96.4 77 16 86/62 93 04/15/17 20:18 78 04/15/17 20:00 96.6 79 16 92/62 94 04/15/17 16:00 96.2 79 20 93/69 93 I/O 04/15/17 04/15/17 04/15/17 04/16/17 04/16/17 04/16/17 07:00 15:00 23:00 07:00 15:00 23:00 Intake Total 845 ml 901 ml 240 ml 360 ml Output Total 300 ml 200 ml Balance 545 ml 701 ml 240 ml 360 ml Intake Oral 120 ml 240 ml 240 ml 360 ml IV Total 725 ml 661 ml Output Urine Total 300 ml 200 ml # Voids 1 0 2 # Bowel Movements 1 0 0 Result Diagram: 04/16/17 0557 04/16/17 0640 Imaging Last [address] 04/16/17 0000 Signed Impressions: Service Date/Time: April 12:00 - CONCLUSION: Unremarkable study except for postsurgical changes. Jaylen Hernandez MD Modified Barium Swallow 04/16/17 0000 Signed Impressions: Service Date/Time: April 00:00 - CONCLUSION: Please refer to speech pathology report for complete discussion. Jaylen Hernandez MD Abdomen/Pelvis CT 04/15/17 0000 Signed Impressions: Service Date/Time: Saturday, April 15, 2017 19:07 - CONCLUSION: Moderate ascites with small liver. Bowel wall thickening splenic flexure suggesting colitis. G-tube in good position. Buster Cho MD FACR Chest X-Ray 04/14/172035 Signed Impressions: Service Date/Time: Friday, April 14, 2017 20:45 - CONCLUSION: Bilateral lower lobe infiltrates more pronounced on the right. Phillip Lopez Jr., MD Procedures Modified barium swallow today Objective Remarks GENERAL: Alert and oriented. SKIN: Warm and dry. HEAD: Normocephalic. EYES: No scleral icterus. No injection or drainage. NECK: Supple, trachea midline. No JVD or lymphadenopathy. CARDIOVASCULAR: Regular rate and rhythm without murmurs, gallops, or rubs. RESPIRATORY: Breath sounds equal bilaterally. No accessory muscle use. GASTROINTESTINAL: Abdomen soft, non-tender, nondistended. MUSCULOSKELETAL: No cyanosis, or edema. BACK: Nontender without obvious deformity. No CVA tenderness. Medications and IVs Current Medications Medications (Trade) Dose Ordered Sig/Sagar Route Start Time Stop Time Status Last Admin (10/06 NS 1000 ml Inj) 1,000 ml @ 75 mls/hr [id number] IV 04/14/17 22:12 04/15/17 12:11 (NS Flush) 2 ml UNSCH PRN IV FLUSH 04/14/17 22:15 (NS Flush) 2 ml BID IV FLUSH 04/15/17 09:00 04/16/17 10:28 (Zofran Inj) 4 mg Q6H PRN IVP 04/14/17 22:15 (Narcan Inj) 0.4 mg UNSCH PRN IV 04/14/17 22:15 (Duragesic 25 Mcg Patch.72 Hr) 25 patch Q72H T-DERMAL 04/14/17 22:30 (K-Lyte Cl Eff) 25 meq DAILY PO 04/15/17 09:00 04/16/17 10:27 (Roxicodone) 15 mg Q4H PRN PO 04/14/17 22:30 04/16/17 11:42 Multi-Ingredient Mouthwash/Gargle 10 ml 10 ml QID SWISH-SWAL 04/15/17 13:00 04/16/17 13:00 Ceftriaxone Sodium 1000 mg/ Sodium Chloride 100 ml @ 200 mls/hr Q24H IV 04/15/17 10:00 04/16/17 10:27 (Zithromax Inj/ NS 250 ml Inj) 250 ml @ 250 mls/hr Q24H IV 04/15/17 12:00 04/16/17 11:42 (Pepcid Inj) 20 mg Q12HR IV PUSH 04/15/17 15:30 04/16/17 10:27 (Mucinex Er) 600 mg BID PO 04/16/17 10:00 04/16/17 10:34 (Lactinex) 1 tab Q12HR PO 04/16/17 21:00 Assessment and Plan Problem List: (1) Pneumonia Status: Acute Plan: Chest Xray with bilateral lower lobe pneumonia. Pulmonary consulted. Rocephin and azithromycin ordered ST evaluation: Full liquid advance to pureed. Modified barium swallow with no penetration Mucinex ordered (2) Hypokalemia Status: Acute Plan: K 3.8 on replacement. (3) Dysphagia Status: Acute Plan: Patient on full liquid diet. Modified barium ordered (4) Chronic pain Status: Acute Plan: Continue current pain medication. Well controlled (5) Leg edema Status: Acute Plan: 1+ edema after elevation all night. Will monitor (6) Pancytopenia Status: Acute Plan: Hematology consulted pending Recheck in AM (7) Hypoalbuminemia Status: Acute Plan: Dietary consult ordered for recommendation for feeding. She has been doing bolus however may benefit from continuous if she tolerates. Patient does not tolerate feeding. Reports that she takes only 1-2 cans per day secondary to abdominal discomfort. She appears very malnourished. 13th- Nutrition recommending vital 1.5 nightly. Start at 20 ml tonight. (8) Thrush, oral Status: Acute Plan: Magic mouth wash ordered. (9) Hypophosphatemia Status: Acute Plan: Replacement ordered. (10) Loose stools Status: Acute Plan: C diff ordered (11) Abdominal discomfort Status: Acute Plan: GI consulted. Ct of abdomen with colitis noted. Assessment and Plan Assessment and plan discussed with Dr. Sharma Discussed Condition With Nursing Discharge Planning Home with [facility] Physician Attestation I and the EDITOR have both examined this patient and reviewed this note and I agree with these findings and plan of care. Joseph Sharma Problem Qualifiers (1) Pneumonia: Qualified Code: J18.9 - Pneumonia of both lower lobes due to infectious organism Penny Quesada [facility] Apr 16, 2017 13:40
[2017-04-16] MEDS ORDERED: POTASSIUM PHOSPHATE INJ 15 MMOL in SODIUM CHLORIDE 0.9% INJ 150 ML IV ONE (13:45)
[2017-04-16] MEDS: MAGNESIUM SULFATE 1 GM PREMIX 100 ML IV SCH ×2 (14:40→16:08)
--- NOTE | 2017-04-16 17:40 | HHI.PR ---
Subjective Remarks 51 YOWFw ith Ca tongue, s/p surgery, PEG tube had cough this am and had mild chest discomfort No Fever Denies SOB Objective Vital Signs Vital Signs Date Time Temp Pulse Resp B/P Pulse Ox O2 Delivery O2 Flow Rate FiO2 04/16/17 16:37 96.5 70 20 101/67 98 04/16/17 12:58 96.4 87 21 110/74 96 04/16/17 08:39 96.1 78 20 111/76 95 04/16/17 04:10 18 04/16/17 04:09 73 04/16/17 04:00 96.7 79 16 101/64 94 04/16/17 00:05 83 04/16/17 00:00 96.4 77 16 86/62 93 04/15/17 20:18 78 04/15/17 20:00 96.6 79 16 92/62 94 I/O 04/15/17 04/15/17 04/15/17 04/16/17 04/16/17 04/16/17 07:00 15:00 23:00 07:00 15:00 23:00 Intake Total 845 ml 901 ml 240 ml 360 ml 850 ml Output Total 300 ml 200 ml Balance 545 ml 701 ml 240 ml 360 ml 850 ml Intake Oral 120 ml 240 ml 240 ml 360 ml 360 ml IV Total 725 ml 661 ml 490 ml Output Urine Total 300 ml 200 ml # Voids 1 0 2 8 # Bowel Movements 1 0 0 Result Diagram: 04/16/17 0557 04/16/17 0640 Objective Remarks GENERAL: Thin built WF NAD SKIN: Warm and dry. HEAD: Normocephalic. EYES: No scleral icterus. No injection or drainage. NECK: Supple, trachea midline. No JVD or lymphadenopathy. CARDIOVASCULAR: Regular rate and rhythm without murmurs, gallops, or rubs. RESPIRATORY: Breath sounds equal bilaterally. No accessory muscle use. GASTROINTESTINAL: Abdomen soft, non-tender, nondistended. MUSCULOSKELETAL: No cyanosis, or edema. Skin graft donor site left arm and rt thigh BACK: Nontender without obvious deformity. No CVA tenderness. A/P Assessment and Plan Lung infilt COPD Ca tongue, s/p surgery Nicotine use Dysphagia PLAN: Cont Abx Zithro and rocephin Aerosol nebs TF Sánchez Dillon MD Apr 16, 2017 17:40
[2017-04-16] MEDS: LACTOBACILLUS ACIDOPHILUS TAB PO SCH (20:13)
[2017-04-16 22:23] LABS: C. DIFF EPI 027 PRESUMPTIVE NEGATIVE (NEGATIVE); C. DIFF TOXIN PCR NEGATIVE (NEGATIVE)
[2017-04-17] VITALS (8 sets, daily range): BP systolic 90–104; BP diastolic 58–74; PULSE 61–77; RESP 16–20; TEMP 95.7–97.2; O2SAT 94–100
--- NOTE | 2017-04-17 00:32 | PD.ONC.PN ---
Subjective Subjective Remarks PATIENT SEEN ON 04/16/17 FULL CONSULT NOTE DICTATED PATIENT WITH HISTORY OF BASE OF TONGUE MODERATELY DIFFERENTIATED KERATINIZING SQUAMOUS CELL CANCER--S/P PARTIAL GLOSSECTOMY AND NECK DISSECTION C/O NECK FULLNESS/DYSPHAGIA AGREE WITH CT NECK/CHEST/ABDOMEN AND PELVIS LEUKOPENIA MILD LIKELY DUE TO PNEUMONIA/INFECTION--ANC WELL ABOVE 100 THROMBOCYTOPENIA MILD--? ALCOHOL ABUSE VS ACUTE INFECTION RELATED, MILD LFT ELEVATION. CHECK HEP PANEL, CHECK LDH/HAPTOGLOBIN AGREE WITH SPEECH EVAL Objective Data Date Time Temp Pulse Resp B/P Pulse Ox O2 Delivery O2 Flow Rate FiO2 04/16/17 21:15 18 04/16/17 20:00 96.8 16 16 93/61 98 04/16/17 16:37 96.5 70 20 101/67 98 04/16/17 12:58 96.4 87 21 110/74 96 04/16/17 08:39 96.1 78 20 111/76 95 04/16/17 04:09 73 04/16/17 04:00 96.7 79 16 101/64 94 Result Diagram: 04/16/17 0557 04/16/17 0640 Laboratory Results Laboratory Tests Test 04/16/17 04/16/17 04/16/17 05:57 06:40 19:40 White Blood Count 2.5 TH/MM3 Red Blood Count 4.05 MIL/MM3 Hemoglobin 13.4 GM/DL Hematocrit 38.8 % Mean Corpuscular Volume 95.7 FL Mean Corpuscular Hemoglobin 33.1 PG Mean Corpuscular Hemoglobin 34.6 % Concent Red Cell Distribution Width 12.5 % Platelet Count 91 TH/MM3 Mean Platelet Volume 13.8 FL Neutrophils (%) (Auto) 71.0 % Lymphocytes (%) (Auto) 15.7 % Monocytes (%) (Auto) 9.6 % Eosinophils (%) (Auto) 3.1 % Basophils (%) (Auto) 0.6 % Neutrophils # (Auto) 1.8 TH/MM3 Lymphocytes # (Auto) 0.4 TH/MM3 Monocytes # (Auto) 0.2 TH/MM3 Eosinophils # (Auto) 0.1 TH/MM3 Basophils # (Auto) 0.0 TH/MM3 CBC Comment AUTO DIFF Differential Comment FINAL DIFF MANUAL Platelet Estimate LOW Platelet Morphology Comment ENLARGED Target Cells 1+ Sodium Level 141 MEQ/L Potassium Level 3.8 MEQ/L Chloride Level 102 MEQ/L Carbon Dioxide Level 34.7 MEQ/L Anion Gap 4 MEQ/L Blood Urea Nitrogen 3 MG/DL Creatinine 0.21 MG/DL Estimat Glomerular Filtration 353 ML/MIN Rate Random Glucose 77 MG/DL Calcium Level 7.8 MG/DL Phosphorus Level 2.3 MG/DL Magnesium Level 1.6 MG/DL Prealbumin 6 MG/DL Stool C. difficile Toxin (PCR) NEGATIVE Stl C. difficile Toxin PRESUMPTIVE Epiderm 027 NEGATIVE Culture Results Microbiology Date/Time Procedure Status Source Growth 04/14/17 21:15 Aerobic Blood Culture - Preliminary Resulted Blood Peripheral NO GROWTH IN 2 DAYS 04/14/17 21:15 Anaerobic Blood Culture - Preliminary Resulted Blood Peripheral NO GROWTH IN 2 DAYS 04/14/17 21:28 Aerobic Blood Culture - Preliminary Resulted Blood Peripheral NO GROWTH IN 2 DAYS 04/14/17 21:28 Anaerobic Blood Culture - Preliminary Resulted Blood Peripheral NO GROWTH IN 2 DAYS 04/16/17 05:57 Aerobic Blood Culture Received Blood Peripheral Pending 04/16/17 05:57 Anaerobic Blood Culture Received Blood Peripheral Pending 04/16/17 06:04 Aerobic Blood Culture Received Blood Peripheral Pending 04/16/17 06:04 Anaerobic Blood Culture Received Blood Peripheral Pending Administered Medications Medications (Trade) Dose Ordered Sig/Sagar Route PRN Reason Start Time Stop Time Status Last Admin Dose Admin Sodium Chloride (1/2 NS 1000 ml Inj) 1,000 ml @ 75 mls/hr [id number] IV 04/14/17 22:12 04/16/17 20:16 Sodium Chloride (NS Flush) 2 ml BID IV FLUSH 04/15/17 09:00 04/16/17 20:16 Potassium Bicarb/ Potassium Chloride (K-Lyte Cl Eff) 25 meq DAILY PO 04/15/17 09:00 04/16/17 10:27 Oxycodone HCl (Roxicodone) 15 mg Q4H PRN PO PAIN 04/14/17 22:30 04/16/17 20:15 Multi-Ingredient Mouthwash/Gargle 10 ml 10 ml QID SWISH-SWAL 04/15/17 13:00 04/16/17 20:14 Ceftriaxone Sodium 1000 mg/ Sodium Chloride 100 ml @ 200 mls/hr Q24H IV 04/15/17 10:00 04/16/17 10:27 Azithromycin/ Sodium Chloride (Zithromax Inj/ NS 250 ml Inj) 250 ml @ 250 mls/hr Q24H IV 04/15/17 12:00 04/16/17 11:42 Famotidine (Pepcid Inj) 20 mg Q12HR IV PUSH 04/15/17 15:30 04/16/17 20:13 Guaifenesin (Mucinex Er) 600 mg BID PO 04/16/17 10:00 04/16/17 20:13 Lactobacillus Acidophilus (Lactinex) 1 tab Q12HR PO 04/16/17 21:00 04/16/17 20:13 Objective Remarks GENERAL: THIN CACHECTIC SKIN: Warm and dry. NECK: Supple, trachea midline. B/L NECK FULLNESS/CHRONIC POST SURGICAL CHANGES NOTED LYMPHATIC: No adenopathy. CARDIOVASCULAR: Regular rate and rhythm without murmurs. RESPIRATORY: Breath sounds equal bilaterally. No accessory muscle use. GASTROINTESTINAL: Abdomen soft, non-tender, nondistended. EXTREMITIES: No cyanosis, or edema. Assessment/Plan Problem List: (1) Primary tongue squamous cell carcinoma Status: Acute (2) Malnutrition Status: Acute (3) Dysphagia Status: Acute (4) Pneumonia Status: Acute (5) Pancytopenia Status: Acute Problem Qualifiers (1) Pneumonia: Qualified Code: J18.9 - Pneumonia of both lower lobes due to infectious organism Germán Shelton MD Apr 17, 2017 00:32
[2017-04-17 02:24] LABS: BLOOD, URINE NEG (NEG); GLUCOSE,URINE NEG (NEG); KETONE, URINE NEG (NEG); NITRITE,URINE NEG (NEG); SQUAMOUS EPITHELIAL CELL URINE <1 /hpf (0-5); URINE COLOR LIGHT-YELLOW (YELLW/STRAW)
[2017-04-17 02:25] LABS: COMMENT (UR) CULT NOT INDICATED; CULTURE IF INDICATED CULT NOT INDICATED
[2017-04-17] MEDS: SODIUM CHLOR 0.45% 1000 ML INJ 1,000 ML IV SCH (03:32)
--- NOTE | 2017-04-17 07:18 | MB ---
cc: ADIA CAT DATE OF CONSULTATION 04/16/2017 DATE OF 1965 REASON FOR CONSULTATION Patient with a history of head and neck cancer who presents with lower extremity swelling and neck swelling. HISTORY OF PRESENT ILLNESS Ms. 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 She was diagnosed based on needle biopsy of this lesion. A PET scan showed increased activity corresponding to the floor of the mouth mass. The patient underwent right partial glossectomy and right selective neck dissection at [facility]. On final pathology, margins were negative. Lymph node dissection from the right neck level II were also negative. Right neck level I was also negative. The right neck level III lymph node dissection was also negative for metastatic tumor. The final pathology confirmed invasive moderately differentiated keratinizing squamous cell carcinoma with the depth of invasion of 0.6 cm. There was no lymphovascular or perineural invasion. P16 stain was negative indicating HPV negative disease. She subsequently underwent radiation treatments. Unfortunately she did not follow up in our oncology clinic since June of 2016. She has a longstanding history of tobacco abuse. She states that she has quit smoking. The patient now presents to the emergency department with complaints of nausea, vomiting, abdominal discomfort, lower extremity swelling and difficulty swallowing. She also felt neck fullness. She has a PEG in place and has not been doing adequate enteral feeds. On admission, she was found to have bilateral pneumonia, possibly aspirational. On admission, she had upper extremity Doppler ultrasound which did not show any evidence of DVT in the right upper extremity. She had a chest x-ray which showed bilateral lower lobe infiltrates more pronounced on the right side. The patient is currently on Rocephin and azithromycin for bilateral lower lobe pneumonia. She is currently undergoing swallow evaluation. Lower extremity edema has decreased. Oncology has been consulted to evaluate pancytopenia and a history of head and neck malignancy. REVIEW OF SYSTEMS A comprehensive 14-point review of systems was completed which is negative except as described in the HPI. PAST MEDICAL HISTORY 1. Squamous cell carcinoma of the base of the tongue 2. COPD 3. Tobacco abuse 4. Hypertension PAST SURGICAL HISTORY 1. History of partial glossectomy and neck dissection. 2. History of breast augmentation. 3. PEG tube placement. FAMILY HISTORY Family history was reviewed and is noncontributory to this admission. SOCIAL HISTORY She drinks two alcohol beverages per day. She lives with her . She states that she has quit smoking and uses electronic cigarettes. MEDICATIONS Inpatient medications include: 1. Lactobacillus acidophilus tablet p.o. q.12 h 2. Mucinex ER 600 mg p.o. b.i.d. 3. Pepcid 20 mg IV q.12 h 4. Magic mouth wash 10 cc q.i.d. 5. Azithromycin IV 500 mg IV q.24 h. 6. Ceftriaxone 1000 mg IV q.24 hours 7. Fentanyl patch 25 mcg q.72 h 8. Oxycodone 15 mg p.o. q.4 h p.r.n. 9. Zofran 4 mg IV q.6 h p.r.n. ALLERGIES NO KNOWN DRUG ALLERGIES. PHYSICAL EXAM VITAL SIGNS: Blood pressure is 101/67, pulse is in the 70s, temperature is 96.5, respiratory rate is 18, O2 sat is 98% on room air. GENERAL: A cachectic chronically ill-appearing female in no apparent distress. HEENT: Pupils are equal, round and react to light. EOMI. OP is clear. There are fibrotic changes with dermatitis status post radiation noted on the left neck. There is some fullness in the in the right neck. It is difficult to tell whether these are postsurgical/post-radiation changes versus acute swelling. CHEST: Decreased bilateral lower lobe sounds. CARDIAC: S1-S2 regular rate rhythm. ABDOMEN: Soft, nontender, nondistended. Bowel sounds are present. EXTREMITIES: Without any edema, erythema or cyanosis. SKIN: Without any petechiae, lesion or bruises. NEUROLOGIC: No focal deficits. PSYCHIATRIC: Mood and affect was appropriate. LABORATORY DATA WBC 2.5, hemoglobin 13.4, MCV 95.7, platelet count 91. Serum chemistries show a sodium of 141, potassium 3.8, chloride 102, CO2 34.7, BUN 3, creatinine 0.21, glucose 77, calcium 7.8, phosphorus 2.3, magnesium 1.6, total protein 4.6, albumin 1.3. Prealbumin is 6, AST 53, ALT of 18. Coags, PT 11.6, INR 1, PTT 25.2. IMAGING STUDIES Reviewed in the EMR. 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 She is status post right partial glossectomy with right selective neck dissection. She has lymph node negative disease. There was no lymphovascular or peridural invasion. The tumor size was 2.5 x 2.5 x 1 cm. She underwent adjuvant radiation treatments. She unfortunately did not follow up in the oncology clinic. She now presents to the emergency department with cachexia, dysphagia, lower extremity edema, neck fullness and not feeling well. 1. Neck fullness and dysphagia. There is obviously a concern for the recurrent disease. I agree with obtaining CT of the neck soft tissue and CT of the chest, abdomen and pelvis to assess her disease status. I agree with speech pathology referral and consultation and modified barium swallow. Dietary consult for nutrition. 2. Mild leukopenia is above 1200. The mild leukopenia is likely due to acute infection. She does have pneumonia. We will continue to monitor. 3. Thrombocytopenia also likely due to acute infection. We should rule out any underlying liver disease. AST is slightly elevated. There is a possibility of excessive alcohol abuse. She does admit to drinking two alcoholic beverages per day. Check hepatitis B and C panel. Check LDH and haptoglobin. She is getting CT of the abdomen and pelvis And this will also help us evaluate her liver and spleen. She is currently not bleeding, we will continue to monitor. Nutritional consult. Speech evaluation as above. 4. Community-acquired pneumonia. Continue Rocephin and azithromycin Thank you for allowing me to participate in the care of this patient. I will continue to follow this patient along. MD FAREED Truong/LUZ /12:16 AM /6:53 AM
[2017-04-17] MEDS: SODIUM CHLORIDE 0.9% FLUSH 10 ML FLUSH IV FLUSH SCH ×2 (09:00→21:00)
[2017-04-17] MEDS: guaiFENesin E.R. 600 MG TAB PO SCH ×2 (09:04→21:43)
[2017-04-17] MEDS: cefTRIAXone INJ 1,000 MG in SODIUM CHLORIDE 0.9% INJ 100 ML IV SCH (09:04)
[2017-04-17] MEDS: LACTOBACILLUS ACIDOPHILUS TAB PO SCH ×2 (09:04→21:42)
[2017-04-17] MEDS: NYSTAT/DIPHENHY/LIDO MOUTHWASH (Adult) 120ML SWISH-SWAL SCH ×4 (09:04→21:49)
[2017-04-17] MEDS: POTASSIUM CHLORIDE 25 MEQ EFFERVESCENT TAB PO SCH (09:04)
[2017-04-17] MEDS: FAMOTIDINE 20 MG/2 ML VIAL IV PUSH SCH ×2 (09:05→21:42)
[2017-04-17 09:56] LABS: AUTOMATED NEUTROPHIL # 1.8 TH/MM3 (1.8-7.7); BASOPHIL % 0.7 % (0.0-2.0); EOSINOPHIL # 0.1 TH/MM3 (0-0.4); EOSINOPHIL % 3.5 % (0.0-4.0); HEMATOCRIT 36.5 % (35.0-46.0); LYMPH % 17.7 % (9.0-44.0); LYMPHOCYTE # 0.4 TH/MM3 (1.0-4.8); MEAN CELL VOLUME 97.7 FL (80.0-100.0); MEAN CORPUSCULAR HEMOGLOBIN 32.9 PG (27.0-34.0); MEAN CORPUSCULAR HGB CONC 33.7 % (32.0-36.0); MONO % 8.3 % (0.0-8.0); NEUT % 69.8 % (16.0-70.0); PLATELET COUNT 78 TH/MM3 (150-450); RED BLOOD COUNT 3.74 MIL/MM3 (4.00-5.30); RED CELL DISTRIBUTION WIDTH 12.6 % (11.6-17.2); WHITE BLOOD COUNT 2.5 TH/MM3 (4.0-11.0)
[2017-04-17 09:59] LABS: HEMO FLAGS AUTO DIFF
--- NOTE | 2017-04-17 10:13 | RADRPT ---
EXAM DATE/TIME: 04/17/2017 09:42 This report includes an Addendum and supersedes previous reports for this exam. [facility] COMPARISON: CHEST SINGLE AP, April 14, 2017, 20:45. INDICATIONS : Infiltrate. Pneumonia, cough.Bilateral arm pain and leg pain. MEDICAL HISTORY : Carcinoma, tongue. Chronic obstructive pulmonary disease SURGICAL HISTORY : None. ENCOUNTER: Subsequent ACUITY: 4 - 6 days PAIN SCORE: 0/10 LOCATION: Bilateral chest FINDINGS: The lungs are clear without infiltrate, nodule, or mass. There is no appreciable pleural effusion fo r technique. Heart and mediastinum are unremarkable. CONCLUSION: No acute cardiopulmonary disease. Jaylen Hernandez MD on April 17, 2017 at 10:10 Board Certified Radiologist. This report was verified electronically. ADDENDUM: The patient only has leg pain and does not have bilateral arm pain. Jaylen Hernandez MD on April 17, 2017 at 11:56 Board Certified Radiologist. This report was verified electronically.
--- NOTE | 2017-04-17 10:44 | HHI.PR ---
Subjective Remarks Patient seen at bedside. Cough improved. Tube feeding ordered last night per patient she did not understand that it was ordered only at night time so she refused. Objective Vital Signs Date Time Temp Pulse Resp B/P Pulse Ox O2 Delivery O2 Flow Rate FiO2 04/17/17 08:23 97.0 74 18 104/74 96 04/17/17 06:05 16 04/17/17 04:01 61 04/17/17 04:00 96.1 68 16 90/63 94 04/17/17 00:00 68 04/17/17 00:00 96.5 68 16 98/62 95 04/16/17 20:00 96.8 16 16 93/61 98 04/16/17 16:37 96.5 70 20 101/67 98 04/16/17 12:58 96.4 87 21 110/74 96 I/O 04/16/17 04/16/17 04/16/17 04/17/17 04/17/17 04/17/17 07:00 15:00 23:00 07:00 15:00 23:00 Intake Total 360 ml 850 ml 480 ml 350 ml Balance 360 ml 850 ml 480 ml 350 ml Intake Oral 360 ml 360 ml 480 ml 350 ml IV Total 490 ml # Voids 2 8 1 2 # Bowel Movements 0 0 0 Result Diagram: 04/17/17 0722 04/16/17 0640 Procedures Modified barium swallow today Objective Remarks GENERAL: Alert and oriented. Cachectic SKIN: Warm and dry. HEAD: Normocephalic. EYES: No scleral icterus. No injection or drainage. NECK: Supple, trachea midline. No JVD or lymphadenopathy. CARDIOVASCULAR: Regular rate and rhythm without murmurs, gallops, or rubs. RESPIRATORY: Breath sounds equal bilaterally. No accessory muscle use. GASTROINTESTINAL: Abdomen soft, non-tender, nondistended. MUSCULOSKELETAL: No cyanosis, or edema. BACK: Nontender without obvious deformity. No CVA tenderness. Medications and IVs Current Medications Medications (Trade) Dose Ordered Sig/Sagar Route Start Time Stop Time Status Last Admin (10/06 NS 1000 ml Inj) 1,000 ml @ 75 mls/hr [id number] IV 04/14/17 22:12 04/16/17 20:16 (NS Flush) 2 ml UNSCH PRN IV FLUSH 04/14/17 22:15 (NS Flush) 2 ml BID IV FLUSH 04/15/17 09:00 04/17/17 09:00 (Zofran Inj) 4 mg Q6H PRN IVP 04/14/17 22:15 (Narcan Inj) 0.4 mg UNSCH PRN IV 04/14/17 22:15 (Duragesic 25 Mcg Patch.72 Hr) 25 patch Q72H T-DERMAL 04/14/17 22:30 (K-Lyte Cl Eff) 25 meq DAILY PO 04/15/17 09:00 04/17/17 09:04 (Roxicodone) 15 mg Q4H PRN PO 04/14/17 22:30 04/17/17 09:05 Multi-Ingredient Mouthwash/Gargle 10 ml 10 ml QID SWISH-SWAL 04/15/17 13:00 04/17/17 09:04 Ceftriaxone Sodium 1000 mg/ Sodium Chloride 100 ml @ 200 mls/hr Q24H IV 04/15/17 10:00 04/17/17 09:04 (Zithromax Inj/ NS 250 ml Inj) 250 ml @ 250 mls/hr Q24H IV 04/15/17 12:00 04/16/17 11:42 (Pepcid Inj) 20 mg Q12HR IV PUSH 04/15/17 15:30 04/17/17 09:05 (Mucinex Er) 600 mg BID PO 04/16/17 10:00 04/17/17 09:04 (Lactinex) 1 tab Q12HR PO 04/16/17 21:00 04/17/17 09:04 Assessment and Plan Problem List: (1) Pneumonia Status: Acute Plan: Chest Xray with bilateral lower lobe pneumonia. Pulmonary consulted. Rocephin and azithromycin ordered ST evaluation: Full liquid advance to pureed. Modified barium swallow with no penetration (2) Hypokalemia Status: Acute Plan: On replacement labs pending (3) Dysphagia Status: Acute Plan: Patient on pureed diet. Modified barium ordered with no penetration. (4) Chronic pain Status: Acute Plan: Continue current pain medication. Well controlled (5) Leg edema Status: Acute Plan: 1+ edema after elevation all night. Will monitor (6) Pancytopenia Status: Acute Plan: Hematology consulted per note likely leukopenia and thrombocytopenia related to acute illness. (7) Hypoalbuminemia Status: Acute Plan: Dietary consult ordered for recommendation for feeding. She has been doing bolus however may benefit from continuous if she tolerates. Patient does not tolerate feeding. Reports that she takes only 1-2 cans per day secondary to abdominal discomfort. She appears very malnourished. 13th- Nutrition recommending vital 1.5 nightly. Start at 20 ml tonight. 14th- Patient did not receive tube feeding that was ordered last night. Per patient she did not understand that it was ordered nightly only. Will request again from nursing to hang tube feeding tonight and patient encouraged to increase calorie intake. Calorie count ordered (8) Thrush, oral Status: Acute Plan: Magic mouth wash ordered. (9) Hypophosphatemia Status: Acute Plan: Replacement ordered recheck pending (10) Loose stools Status: Acute Plan: C diff ordered negative. Stools improved (11) Abdominal discomfort Status: Acute Plan: GI consulted. Ct of abdomen with colitis noted. Reports that she does not take recommended tube feeding secondary to abdominal discomfort. Assessment and Plan Assessment and plan discussed with Dr. Sharma Discussed Condition With Nursing Discharge Planning Home with [facility] Physician Attestation I and the UNLOADER have both examined this patient and reviewed this note and I agree with these findings and plan of care. Joseph Sharma DO Problem Qualifiers (1) Pneumonia: Qualified Code: J18.9 - Pneumonia of both lower lobes due to infectious organism Penny Quesada. [facility] Apr 17, 2017 10:44
--- NOTE | 2017-04-17 10:51 | HHI.FF ---
Face to Face Verification Diagnosis: (1) Malnutrition (2) Dysphagia Home Health Nursing Order: Medical education Signs/symptoms of disease process Nursing assessment with vital signs I have seen patient Briseida Hua on 04/17/17. My clinical findings support the need for the requested home health care services because: Need for psychosocial assistance I certify that my clinical findings support that this patient is homebound because: Need for psychosocial assistance Penny Quesada Apr 17, 2017 10:51
[2017-04-17 10:52] LABS: BICARBONATE 28.6 MEQ/L (21.0-32.0); MAGNESIUM 2.2 MG/DL (1.5-2.5); POTASSIUM 3.5 MEQ/L (3.5-5.1)
[2017-04-17 12:14] LABS: PLATELET ESTIMATE SMEAR LOW (NORMAL); PLATELET MORPHOLOGY ENLARGED (NORMAL); SCAN/DIFF AUTO DIFF CONFIRMED
[2017-04-17] MEDS: AZITHROMYCIN INJ 500 MG in SODIUM CHLOR 0.9% 250 ML INJ 250 ML IV SCH (13:19)
[2017-04-17] MEDS: THIAMINE HCL 100 MG TAB PO SCH (13:20)
[2017-04-17] MEDS: FOLIC ACID 1 MG TAB PO SCH (13:20)
--- NOTE | 2017-04-17 13:30 | PD.ONC.PN ---
Subjective Subjective Remarks Afebrile overnight. Patient resting in room in nad. She tells me she is going home tomorrow morning no matter what. She says she feels much better. Objective Data Date Time Temp Pulse Resp B/P Pulse Ox O2 Delivery O2 Flow Rate FiO2 04/17/17 12:53 96.3 67 20 102/69 100 04/17/17 08:23 97.0 74 18 104/74 96 04/17/17 06:05 16 04/17/17 04:01 61 04/17/17 04:00 96.1 68 16 90/63 94 04/17/17 00:00 68 04/17/17 00:00 96.5 68 16 98/62 95 04/16/17 20:00 96.8 16 16 93/61 98 04/16/17 16:37 96.5 70 20 101/67 98 04/17/17 04/17/17 04/17/17 06:59 14:59 22:59 Intake Total 350 ml Balance 350 ml Result Diagram: 04/17/1772104/17/17721 Laboratory Results Laboratory Tests Test 04/16/17 04/16/17 04/17/17 19:40 22:25 07:22 Stool C. difficile Toxin (PCR) NEGATIVE Stl C. difficile Toxin PRESUMPTIVE Epiderm 027 NEGATIVE Urine Color LIGHT-YELLOW Urine Turbidity CLEAR Urine pH 7.0 Urine Specific [place] 1.011 Urine Protein NEG mg/dL Urine Glucose (UA) NEG mg/dL Urine Ketones NEG mg/dL Urine Occult Blood NEG Urine Nitrite NEG Urine Bilirubin NEG Urine Urobilinogen LESS THAN 2.0 MG/DL Urine Leukocyte Esterase NEG Urine WBC LESS THAN 1 /hpf Urine Squamous Epithelial <1 /hpf Cells Microscopic Urinalysis Comment CULT NOT INDICATED White Blood Count 2.5 TH/MM3 Red Blood Count 3.74 MIL/MM3 Hemoglobin 12.3 GM/DL Hematocrit 36.5 % Mean Corpuscular Volume 97.7 FL Mean Corpuscular Hemoglobin 32.9 PG Mean Corpuscular Hemoglobin 33.7 % Concent Red Cell Distribution Width 12.6 % Platelet Count 78 TH/MM3 Mean Platelet Volume 13.9 FL Neutrophils (%) (Auto) 69.8 % Lymphocytes (%) (Auto) 17.7 % Monocytes (%) (Auto) 8.3 % Eosinophils (%) (Auto) 3.5 % Basophils (%) (Auto) 0.7 % Neutrophils # (Auto) 1.8 TH/MM3 Lymphocytes # (Auto) 0.4 TH/MM3 Monocytes # (Auto) 0.2 TH/MM3 Eosinophils # (Auto) 0.1 TH/MM3 Basophils # (Auto) 0.0 TH/MM3 CBC Comment AUTO DIFF Differential Comment AUTO DIFF CONFIRMED Platelet Estimate LOW Platelet Morphology Comment ENLARGED Sodium Level 138 MEQ/L Potassium Level 3.5 MEQ/L Chloride Level 102 MEQ/L Carbon Dioxide Level 28.6 MEQ/L Anion Gap 7 MEQ/L Blood Urea Nitrogen 1 MG/DL Creatinine 0.15 MG/DL Estimat Glomerular Filtration 520 ML/MIN Rate Random Glucose 71 MG/DL Calcium Level 8.0 MG/DL Phosphorus Level 3.2 MG/DL Magnesium Level 2.2 MG/DL Culture Results Microbiology Date/Time Procedure Status Source Growth 04/14/17 21:15 Aerobic Blood Culture - Preliminary Resulted Blood Peripheral NO GROWTH IN 3 DAYS 04/14/17 21:15 Anaerobic Blood Culture - Preliminary Resulted Blood Peripheral NO GROWTH IN 3 DAYS 04/14/17 21:28 Aerobic Blood Culture - Preliminary Resulted Blood Peripheral NO GROWTH IN 3 DAYS 04/14/17 21:28 Anaerobic Blood Culture - Preliminary Resulted Blood Peripheral NO GROWTH IN 3 DAYS 04/16/17 05:57 Aerobic Blood Culture - Preliminary Resulted Blood Peripheral NO GROWTH IN 1 DAY 04/16/17 05:57 Anaerobic Blood Culture - Preliminary Resulted Blood Peripheral NO GROWTH IN 1 DAY 04/16/17 06:04 Aerobic Blood Culture - Preliminary Resulted Blood Peripheral NO GROWTH IN 1 DAY 04/16/17 06:04 Anaerobic Blood Culture - Preliminary Resulted Blood Peripheral NO GROWTH IN 1 DAY Imaging Studies Last 24 hours Impressions Chest X-Ray 04/17/17 0600 Signed Impressions: Service Date/Time: Monday, April 17, 2017 09:42 - CONCLUSION: No acute cardiopulmonary disease. Jaylen Hernandez MD ADDENDUM: The patient only has leg pain and does not have bilateral arm pain. Jaylen Hernandez MD Administered Medications Medications (Trade) Dose Ordered Sig/Sagar Route PRN Reason Start Time Stop Time Status Last Admin Dose Admin Sodium Chloride (1/2 NS 1000 ml Inj) 1,000 ml @ 75 mls/hr [id number] IV 04/14/17 22:12 04/16/17 20:16 Sodium Chloride (NS Flush) 2 ml BID IV FLUSH 04/15/17 09:00 04/17/17 09:00 Potassium Bicarb/ Potassium Chloride (K-Lyte Cl Eff) 25 meq DAILY PO 04/15/17 09:00 04/17/17 09:04 Oxycodone HCl (Roxicodone) 15 mg Q4H PRN PO PAIN 04/14/17 22:30 04/17/17 09:05 Multi-Ingredient Mouthwash/Gargle 10 ml 10 ml QID SWISH-SWAL 04/15/17 13:00 04/17/17 09:04 Ceftriaxone Sodium 1000 mg/ Sodium Chloride 100 ml @ 200 mls/hr Q24H IV 04/15/17 10:00 04/17/17 09:04 Azithromycin/ Sodium Chloride (Zithromax Inj/ NS 250 ml Inj) 250 ml @ 250 mls/hr Q24H IV 04/15/17 12:00 04/16/17 11:42 Famotidine (Pepcid Inj) 20 mg Q12HR IV PUSH 04/15/17 15:30 04/17/17 09:05 Guaifenesin (Mucinex Er) 600 mg BID PO 04/16/17 10:00 04/17/17 09:04 Lactobacillus Acidophilus (Lactinex) 1 tab Q12HR PO 04/16/17 21:00 04/17/17 09:04 Objective Remarks GENERAL: Chronically ill appearing female upright in bed in [facility] SKIN: Warm and dry. HEAD: Normocephalic. EYES: No scleral icterus. No injection or drainage. NECK: Supple, trachea midline. CARDIOVASCULAR: Regular rate and rhythm RESPIRATORY: Breath sounds equal bilaterally. No accessory muscle use. GASTROINTESTINAL: Abdomen soft, PEG tube in place, clamped, nondistended. EXTREMITIES: No cyanosis. chronic venous stasis changes in bilateral lower extremities. 2-3+ pitting edema in bilateral LE NEUROLOGICAL: No obvious focal deficit. Awake, alert, and oriented x3. Assessment/Plan Problem List: (1) Primary tongue squamous cell carcinoma Status: Acute Plan: --P16 negative. --PET scan showed increased activity corresponding to the floor of the mouth mass. --underwent right partial glossectomy and right selective neck dissection at [facility]. On final pathology, margins were negative. Lymph node dissection was negative. --subsequently underwent radiation treatments. --did not follow up in our oncology clinic since June of 2016. --CT neck shows only post-surgical changes --CT A/P-->bowel wall thickening suggesting colitis and ascites. (2) Malnutrition Status: Acute Plan: --starting TF 04/17 per waste paper hammermill operator recommendations (3) Dysphagia Status: Acute Plan: --possibly d/t recurrent disease. --speech therapy --modified barium swallow --has PEG tube--will start Nocturnal tube feeds Vital 1.5 20cc/hr tonight per waste paper hammermill operator recommendations: 1. D/t intolerance of home bolus feedings, recommend nocturnal feedings of Vital 1.5 @ 75mls/hr x 10hrs (10PM-8AM). 2. Concern for refeeding syndrome 3. On first night, run TFing @ 20mls/hr x 10hrs. On second night, run TFing @ 30mls/hr x 10hrs. If electrolytes remain WNL, increase 20mls per night until pt is able to meet 75ml/hr goal rate. 4. Recommend 200ml water flushes Q 6hrs. (4) Pneumonia Status: Acute Plan: --on Rocephin + Zithromax (5) Pancytopenia Status: Acute Plan: -- mild leukopenia likely due to acute infection. monitor. --Thrombocytopenia also likely due to acute infection. --hepatitis profile pending. LDH and haptoglobin pending Assessment 51y/o female with a history of head and neck cancer admitted with nausea, vomiting, abdominal discomfort,lower extremity swelling and difficulty swallowing. h/o Squamous cell carcinoma of the base of the tongue COPD Tobacco abuse Hypertension Plan 1. continue antibiotics 2. start nocturnal tube feeds tonight, monitor closely for refeeding syndrome 3. monitor CBC Attending Statement The exam, history, and the medical decision-making described in the above note were completed with the assistance of the mid-level provider. I reviewed and agree with the findings presented. I attest that I had a [id number] encounter with the patient on the same day, and personally performed and documented my assessment and findings in the medical record tube feeds started thrombocytopenia --due to acute illness/? alcoholism/abnormal LFts CT scans reviewed. No evidence of recurrent disease d/w rn Problem Qualifiers (1) Pneumonia: Qualified Code: J18.9 - Pneumonia of both lower lobes due to infectious organism Anita Calderon Apr 17, 2017 13:30 Germán Shelton MD Apr 18, 2017 00:11
--- NOTE | 2017-04-17 18:53 | HHI.PR ---
Subjective Remarks 51 YOWFw ith Ca tongue, s/p surgery, PEG tube had cough this am and had mild chest discomfort No Fever Denies SOB Tolerates Soft food Objective Vital Signs Vital Signs Date Time Temp Pulse Resp B/P Pulse Ox O2 Delivery O2 Flow Rate FiO2 04/17/17 16:40 92/58 04/17/17 16:29 95.7 67 18 90/64 97 04/17/17 12:53 96.3 67 20 102/69 100 04/17/17 08:23 97.0 74 18 104/74 96 04/17/17 06:05 16 04/17/17 04:01 61 04/17/17 04:00 96.1 68 16 90/63 94 04/17/17 00:00 68 04/17/17 00:00 96.5 68 16 98/62 95 04/16/17 20:00 96.8 16 16 93/61 98 I/O 04/16/17 04/16/17 04/16/17 04/17/17 04/17/17 04/17/17 07:00 15:00 23:00 07:00 15:00 23:00 Intake Total 360 ml 850 ml 480 ml 350 ml 360 ml Balance 360 ml 850 ml 480 ml 350 ml 360 ml Intake Oral 360 ml 360 ml 480 ml 350 ml 360 ml IV Total 490 ml # Voids 2 8 1 2 10 # Bowel Movements 0 0 0 2 Result Diagram: 04/17/1772104/17/17721 Objective Remarks GENERAL: Thin built WF NAD SKIN: Warm and dry. HEAD: Normocephalic. EYES: No scleral icterus. No injection or drainage. NECK: Supple, trachea midline. No JVD or lymphadenopathy. CARDIOVASCULAR: Regular rate and rhythm without murmurs, gallops, or rubs. RESPIRATORY: Breath sounds equal bilaterally. No accessory muscle use. GASTROINTESTINAL: Abdomen soft, non-tender, nondistended. MUSCULOSKELETAL: No cyanosis, or edema. Skin graft donor site left arm and rt thigh BACK: Nontender without obvious deformity. No CVA tenderness. A/P Assessment and Plan Lung infilt COPD Ca tongue, s/p surgery Nicotine use Dysphagia PLAN: Cont Abx Zithro and rocephin Aerosol nebs TF at night Calories count Stable from plum standpoint Available prn over weekend. Sánchez Dillon MD Apr 17, 2017 18:53
[2017-04-17] MEDS: REMOVE OLD DURAGESIC (FENTANYL) PATCH T-DERMAL SCH (23:00)
[2017-04-17] MEDS: fentaNYL 25 MCG/HR PATCH T-DERMAL SCH (23:02)
[2017-04-18] VITALS: BP 95/65; PULSE 65; PULSE 71; RESP 17; TEMP 96; O2SAT 100
[2017-04-18] MEDS: SODIUM CHLOR 0.45% 1000 ML INJ 1,000 ML IV SCH ×2 (03:08→18:44)
[2017-04-18 04:00] VITALS: BP 99/66; PULSE 64; PULSE 66; RESP 17; TEMP 96; O2SAT 99
[2017-04-18 07:00] VITALS: BP 99/67; PULSE 73; RESP 20; TEMP 96.2; O2SAT 96
[2017-04-18 07:33] LABS: AUTOMATED NEUTROPHIL # 1.6 TH/MM3 (1.8-7.7); EOSINOPHIL # 0.1 TH/MM3 (0-0.4); EOSINOPHIL % 2.9 % (0.0-4.0); HEMATOCRIT 35.5 % (35.0-46.0); LYMPH % 18.8 % (9.0-44.0); LYMPHOCYTE # 0.5 TH/MM3 (1.0-4.8); MEAN CORPUSCULAR HEMOGLOBIN 33.3 PG (27.0-34.0); MEAN CORPUSCULAR HGB CONC 34.3 % (32.0-36.0); MONO % 10.5 % (0.0-8.0); NEUT % 66.8 % (16.0-70.0); PLATELET COUNT 85 TH/MM3 (150-450); RED BLOOD COUNT 3.66 MIL/MM3 (4.00-5.30); RED CELL DISTRIBUTION WIDTH 12.7 % (11.6-17.2); WHITE BLOOD COUNT 2.4 TH/MM3 (4.0-11.0)
[2017-04-18] MEDS: FAMOTIDINE 20 MG/2 ML VIAL IV PUSH SCH ×2 (07:52→22:43)
[2017-04-18] MEDS: POTASSIUM CHLORIDE 25 MEQ EFFERVESCENT TAB PO SCH (07:52)
[2017-04-18] MEDS: FOLIC ACID 1 MG TAB PO SCH (07:53)
[2017-04-18] MEDS: guaiFENesin E.R. 600 MG TAB PO SCH ×2 (07:53→22:42)
[2017-04-18] MEDS: THIAMINE HCL 100 MG TAB PO SCH (07:53)
[2017-04-18] MEDS: NYSTAT/DIPHENHY/LIDO MOUTHWASH (Adult) 120ML SWISH-SWAL SCH ×4 (07:53→22:42)
[2017-04-18] MEDS: LACTOBACILLUS ACIDOPHILUS TAB PO SCH ×2 (07:53→22:42)
[2017-04-18] MEDS: SODIUM CHLORIDE 0.9% FLUSH 10 ML FLUSH IV FLUSH SCH ×2 (07:54→22:51)
[2017-04-18 07:59] LABS: ANION GAP 7 MEQ/L (5-15); BICARBONATE 29.2 MEQ/L (21.0-32.0); BLOOD UREA NITROGEN LESS THAN 1 MG/DL (7-18); CHLORIDE 104 MEQ/L (98-107); GLOMERULAR FILTRATION RATE 317 ML/MIN (>89); POTASSIUM 3.6 MEQ/L (3.5-5.1); SODIUM (NA) 140 MEQ/L (136-145)
[2017-04-18 08:00] LABS: AST (GOT) 48 U/L (15-37)
[2017-04-18 08:04] LABS: ALKALINE PHOSPHATASE 218 U/L (45-117); ALT (GPT) 21 U/L (10-53); LDH SERUM 176 U/L (84-246); TOTAL BILIRUBIN ADULT 0.4 MG/DL (0.2-1.0)
[2017-04-18 08:21] LABS: HEMO FLAGS AUTO DIFF
[2017-04-18 08:23] LABS: PLATELET ESTIMATE SMEAR LOW (NORMAL); PLATELET MORPHOLOGY ENLARGED (NORMAL); SCAN/DIFF AUTO DIFF CONFIRMED
--- NOTE | 2017-04-18 08:33 | PD.ONC.PN ---
Subjective Subjective Remarks Afebrile overnight Patient complains of swelling and pain in bilateral legs Wants to go home Objective Data Date Time Temp Pulse Resp B/P Pulse Ox O2 Delivery O2 Flow Rate FiO2 04/18/17 04:00 96.0 66 17 99/66 99 04/18/17 04:00 64 04/18/17 00:00 71 04/18/17 00:00 96.0 65 17 95/65 100 04/17/17 20:00 97.2 77 16 99/65 100 04/17/17 20:00 74 04/17/17 16:40 92/58 04/17/17 16:29 95.7 67 18 90/64 97 04/17/17 12:53 96.3 67 20 102/69 100 04/18/17 04/18/17 04/18/17 06:59 14:59 22:59 Intake Total 480 ml Output Total 1000 ml Balance -520 ml Result Diagram: 04/18/17 0602 04/18/17 0602 Laboratory Results Laboratory Tests Test 04/18/17 06:02 White Blood Count 2.4 TH/MM3 Red Blood Count 3.66 MIL/MM3 Hemoglobin 12.2 GM/DL Hematocrit 35.5 % Mean Corpuscular Volume 97.0 FL Mean Corpuscular Hemoglobin 33.3 PG Mean Corpuscular Hemoglobin 34.3 % Concent Red Cell Distribution Width 12.7 % Platelet Count 85 TH/MM3 Mean Platelet Volume 13.2 FL Neutrophils (%) (Auto) 66.8 % Lymphocytes (%) (Auto) 18.8 % Monocytes (%) (Auto) 10.5 % Eosinophils (%) (Auto) 2.9 % Basophils (%) (Auto) 1.0 % Neutrophils # (Auto) 1.6 TH/MM3 Lymphocytes # (Auto) 0.5 TH/MM3 Monocytes # (Auto) 0.3 TH/MM3 Eosinophils # (Auto) 0.1 TH/MM3 Basophils # (Auto) 0.0 TH/MM3 CBC Comment AUTO DIFF Differential Comment AUTO DIFF CONFIRMED Platelet Estimate LOW Platelet Morphology Comment ENLARGED Sodium Level 140 MEQ/L Potassium Level 3.6 MEQ/L Chloride Level 104 MEQ/L Carbon Dioxide Level 29.2 MEQ/L Anion Gap 7 MEQ/L Blood Urea Nitrogen LESS THAN 1 MG/DL Creatinine 0.23 MG/DL Estimat Glomerular Filtration 317 ML/MIN Rate Random Glucose 121 MG/DL Calcium Level 7.6 MG/DL Total Bilirubin 0.4 MG/DL Aspartate Amino Transf 48 U/L (AST/SGOT) Alanine Aminotransferase 21 U/L (ALT/SGPT) Alkaline Phosphatase 218 U/L Lactate Dehydrogenase 176 U/L Total Protein 4.4 GM/DL Albumin 1.4 GM/DL Culture Results Microbiology Date/Time Procedure Status Source Growth 04/16/17 05:57 Aerobic Blood Culture - Preliminary Resulted Blood Peripheral NO GROWTH IN 1 DAY 04/16/17 05:57 Anaerobic Blood Culture - Preliminary Resulted Blood Peripheral NO GROWTH IN 1 DAY 04/16/17 06:04 Aerobic Blood Culture - Preliminary Resulted Blood Peripheral NO GROWTH IN 1 DAY 04/16/17 06:04 Anaerobic Blood Culture - Preliminary Resulted Blood Peripheral NO GROWTH IN 1 DAY Administered Medications Medications (Trade) Dose Ordered Sig/Sagar Route PRN Reason Start Time Stop Time Status Last Admin Dose Admin Sodium Chloride (1/2 NS 1000 ml Inj) 1,000 ml @ 75 mls/hr [id number] IV 04/14/17 22:12 04/18/17 03:08 Sodium Chloride (NS Flush) 2 ml BID IV FLUSH 04/15/17 09:00 04/18/17 07:54 Potassium Bicarb/ Potassium Chloride (K-Lyte Cl Eff) 25 meq DAILY PO 04/15/17 09:00 04/18/17 07:52 Oxycodone HCl (Roxicodone) 15 mg Q4H PRN PO PAIN 04/14/17 22:30 04/18/17 06:54 Multi-Ingredient Mouthwash/Gargle 10 ml 10 ml QID SWISH-SWAL 04/15/17 13:00 04/18/17 07:53 Ceftriaxone Sodium 1000 mg/ Sodium Chloride 100 ml @ 200 mls/hr Q24H IV 04/15/17 10:00 04/17/17 09:04 Azithromycin/ Sodium Chloride (Zithromax Inj/ NS 250 ml Inj) 250 ml @ 250 mls/hr Q24H IV 04/15/17 12:00 04/17/17 13:19 Famotidine (Pepcid Inj) 20 mg Q12HR IV PUSH 04/15/17 15:30 04/18/17 07:52 Guaifenesin (Mucinex Er) 600 mg BID PO 04/16/17 10:00 04/18/17 07:53 Lactobacillus Acidophilus (Lactinex) 1 tab Q12HR PO 04/16/17 21:00 04/18/17 07:53 Thiamine HCl (Vitamin B1) 100 mg DAILY PO 04/17/17 10:45 04/18/17 07:53 Folic Acid (Folate) 1 mg DAILY PO 04/17/17 10:45 04/18/17 07:53 Fentanyl (Duragesic 25 Mcg Patch.72 Hr) 1 patch Q72H T-DERMAL 04/17/17 23:00 04/17/17 23:02 Miscellaneous Information 1 Q3D T-DERMAL 04/17/17 23:00 04/17/17 23:00 Objective Remarks GENERAL: Chronically ill appearing female upright in bed in nad SKIN: Warm and dry. HEAD: Normocephalic. EYES: No scleral icterus. No injection or drainage. NECK: Supple, trachea midline. CARDIOVASCULAR: + S1/S2. RESPIRATORY: Breath sounds equal bilaterally. No accessory muscle use. GASTROINTESTINAL: Abdomen soft, PEG tube in place with TF infusing. EXTREMITIES: No cyanosis. Chronic venous stasis changes in bilateral lower extremities. 2-3+ pitting edema in bilateral LE. Tender to touch. NEUROLOGICAL: No obvious focal deficit. Awake, alert, and oriented x3. Assessment/Plan Problem List: (1) Primary tongue squamous cell carcinoma Status: Acute Plan: --P16 negative. --PET scan showed increased activity corresponding to the floor of the mouth mass. --underwent right partial glossectomy and right selective neck dissection at [facility]. On final pathology, margins were negative. Lymph node dissection was negative. --subsequently underwent radiation treatments. --did not follow up in our oncology clinic since June of 2016. --CT neck shows only post-surgical changes --CT A/P-->bowel wall thickening suggesting colitis and ascites. (2) Malnutrition Status: Acute Plan: --starting TF 04/17 per screen repairer crusher recommendations (3) Dysphagia Status: Acute Plan: --possibly d/t recurrent disease. --speech therapy --modified barium swallow --has PEG tube--will start Nocturnal tube feeds Vital 1.5 20cc/hr tonight per screen repairer crusher recommendations: 1. D/t intolerance of home bolus feedings, recommend nocturnal feedings of Vital 1.5 @ 75mls/hr x 10hrs (10PM-8AM). 2. Concern for refeeding syndrome 3. On first night, run TFing @ 20mls/hr x 10hrs. On second night, run TFing @ 30mls/hr x 10hrs. If electrolytes remain WNL, increase 20mls per night until pt is able to meet 75ml/hr goal rate. 4. Recommend 200ml water flushes Q 6hrs. (4) Pneumonia Status: Acute Plan: --on Rocephin + Zithromax (5) Pancytopenia Status: Acute Plan: -- mild leukopenia likely due to acute infection. monitor. --Thrombocytopenia also likely due to acute infection. --hepatitis profile pending. Assessment 51y/o female with a history of head and neck cancer admitted with nausea, vomiting, abdominal discomfort,lower extremity swelling and difficulty swallowing. h/o Squamous cell carcinoma of the base of the tongue COPD Tobacco abuse Hypertension Plan 1. Patient tolerated tube feeds last night. No sign of refeeding syndrome. 2. Will get ultrasound of bilateral lower extremities to rule out DVT 3. Continue antibiotics 4. Monitor CBC. Thrombocytopenia stable. Attending Statement The exam, history, and the medical decision-making described in the above note were completed with the assistance of the mid-level provider. I reviewed and agree with the findings presented. I attest that I had a [id number] encounter with the patient on the same day, and personally performed and documented my assessment and findings in the medical record. b/l le u/s ---> no dvt mild leukopenia--ANC > 1200 severe malnutrition. albumin 1.4 TF only at 20%--not ready to be discharged home ongoing support over the weekend d/w rn Problem Qualifiers (1) Pneumonia: Qualified Code: J18.9 - Pneumonia of both lower lobes due to infectious organism Tavia Bo Apr 18, 2017 08:33 Germán Shelton MD Apr 19, 2017 00:14
[2017-04-18] MEDS: AZITHROMYCIN INJ 500 MG in SODIUM CHLOR 0.9% 250 ML INJ 250 ML IV SCH (11:08)
[2017-04-18] MEDS: cefTRIAXone INJ 1,000 MG in SODIUM CHLORIDE 0.9% INJ 100 ML IV SCH (11:08)
[2017-04-18 11:50] VITALS: BP 99/68; PULSE 71; RESP 20; TEMP 97.6; O2SAT 99
--- NOTE | 2017-04-18 15:13 | HHI.PR ---
Subjective Remarks pt started tube feed last pm able to tolerate 20 % will need to be up to full recomendations to dc home will consult [facility] for dc Objective Vital Signs Date Time Temp Pulse Resp B/P Pulse Ox O2 Delivery O2 Flow Rate FiO2 04/18/17 11:50 97.6 71 20 99/68 99 04/18/17 07:00 96.2 73 20 99/67 96 Automatic Cuff 04/18/17 04:00 96.0 66 17 99/66 99 04/18/17 04:00 64 04/18/17 00:00 71 04/18/17 00:00 96.0 65 17 95/65 100 04/17/17 20:00 97.2 77 16 99/65 100 04/17/17 20:00 74 04/17/17 16:40 92/58 04/17/17 16:29 95.7 67 18 90/64 97 I/O 04/17/17 04/17/17 04/17/17 04/18/17 04/18/17 04/18/17 07:00 15:00 23:00 07:00 15:00 23:00 Intake Total 350 ml 360 ml 480 ml 480 ml 350 ml Output Total 1000 ml Balance 350 ml 360 ml 480 ml -520 ml 350 ml Intake Oral 350 ml 360 ml 480 ml 480 ml IV Total 350 ml Output Urine Total 1000 ml # Voids 2 10 10 # Bowel Movements 0 2 4 Result Diagram: 04/18/17 0602 04/18/17 0602 Imaging Last 72 hours Impressions Chest X-Ray 04/17/17 0600 Signed Impressions: Service Date/Time: Monday, April 17, 2017 09:42 - CONCLUSION: No acute cardiopulmonary disease. Jaylen Hernandez MD ADDENDUM: The patient only has leg pain and does not have bilateral arm pain. Jaylen Hernandez MD Neck CT 04/16/17 0000 Signed Impressions: Service Date/Time: April 12:00 - CONCLUSION: Unremarkable study except for postsurgical changes. Jaylen Hernandez MD Modified Barium Swallow 04/16/17 0000 Signed Impressions: Service Date/Time: April 00:00 - CONCLUSION: Please refer to speech pathology report for complete discussion. Jaylen Hernandez MD Procedures Modified barium swallow today Objective Remarks GENERAL: SKIN: Warm and dry. HEAD: Atraumatic. Normocephalic. EYES: Pupils equal and round. No scleral icterus. No injection or drainage. ENT: No nasal bleeding or discharge.marked disfiguration in tongue and oralpharnyx NECK: Trachea midline. No JVD. CARDIOVASCULAR: Regular rate and rhythm. RESPIRATORY: No accessory muscle use. Clear to auscultation. Breath sounds equal bilaterally. GASTROINTESTINAL: Abdomen soft, non-tender, nondistended. Hepatic and splenic margins not palpable. MUSCULOSKELETAL: Extremities without clubbing, cyanosis, or edema. No obvious deformities. legs dry red tender wiyh excoriation NEUROLOGICAL: Awake and alert. No obvious cranial nerve deficits. Motor grossly within normal limits. Five out of 5 muscle strength in the arms and legs. Normal speech. PSYCHIATRIC: Appropriate mood and affect; insight and judgment normal. Medications and IVs Inpatient Medications Azithromycin 500 mg/Sodium Chloride 250 ml @ 250 mls/hr ONCE ONCE IV Last administered on 04/14/17 22:53; Start 04/14/17 at 21:45; Stop 04/14/17 at 22:44 ; Status DC Azithromycin/ Sodium Chloride (Zithromax Inj/ NS 250 ml Inj) 250 ml @ 250 mls/ hr Q24H IV Last administered on 04/18/17 11:08; Start 04/15/17 at 12:00 Ceftriaxone Sodium 1000 mg/ Sodium Chloride 100 ml @ 200 mls/hr Q24H IV Last administered on 04/18/17 11:08; Start 04/15/17 at 10:00 Diatrizoate Meglum/ Diatrizoate Sod ( Gastroview Liq) 18 ml ONCE ONCE PO Last administered on 04/15/17 14:27; Start 04/15/17 at 12:15; Stop 04/15/17 at 12:16; Status DC Famotidine (Pepcid Inj) 20 mg Q12HR IV PUSH Last administered on 04/18/17 07: 52; Start 04/15/17 at 15:30 Fentanyl (Duragesic 25 Mcg Patch.72 Hr) 1 patch Q72H T-DERMAL Last administered on 04/17/17 23:02; Start 04/17/17 at 23:00 Folic Acid (Folate) 1 mg DAILY PO Last administered on 04/18/17 07:53; Start 04/17/17 at 10:45 Guaifenesin (Mucinex Er) 600 mg BID PO Last administered on 04/18/17 07:53; Start 04/16/17 at 10:00 Ketorolac Tromethamine 15 mg 15 mg ONCE ONCE IV PUSH Last administered on 04/14 22:20; Start 04/14/17 at 21:45; Stop 04/14/17 at 21:46; Status DC Lactobacillus Acidophilus 1 tab 1 tab Q12HR PO Last administered on 04/18/17 07:53; Start 04/16/17 at 21:00 Magnesium Sulfate/ Dextrose 100 ml @ 100 mls/hr Q1H IV Last administered on 16:08; Start 04/16/17 at 14:00; Stop 04/16/17 at 15:59; Status DC Miscellaneous Information 1 Q3D T-DERMAL Last administered on 04/17/17 23:00; Start 04/17/17 at 23:00 Multi-Ingredient Mouthwash/Gargle 10 ml 10 ml QID SWISH-SWAL Last administered on 04/18/17 11:07; Start 04/15/17 at 13:00 Naloxone HCl (Narcan Inj) 0.4 mg UNSCH PRN IV SEE LABEL COMMENTS; Start at 22:15 Ondansetron HCl (Zofran Inj) 4 mg Q6H PRN IVP NAUSEA OR VOMITING; Start at 22:15 Oxycodone HCl (Roxicodone) 15 mg Q4H PRN PO PAIN Last administered on 11:07; Start 04/14/17 at 22:30 Potassium Bicarbonate (Effer-K Eff) 50 meq ONCE ONCE PO Last administered on 21:50; Start 04/15/17 at 19:45; Stop 04/15/17 at 21:38; Status DC Potassium Phosphate/Sodium Chloride (Potassium Phosphate Inj/NS Inj) 155 ml @ 38.75 mls/ hr ONCE ONCE IV Last administered on 04/16/17 17:44; Start at 13:45; Stop 04/16/17 at 17:44; Status DC Potassium Bicarb/ Potassium Chloride (K-Lyte Cl Eff) 25 meq ONCE ONCE PO Last administered on 04/15/17 12:13; Start 04/15/17 at 10:15; Stop 04/15/17 at 10:16; Status DC Sodium Chloride (1/2 NS 1000 ml Inj) 1,000 ml @ 75 mls/hr [id number] IV Last administered on 04/18/17 03:08; Start 04/14/17 at 22:12 Sodium Chloride (NS Flush) 2 ml BID IV FLUSH Last administered on 04/18/17 07: 54; Start 04/15/17 at 09:00 Thiamine HCl (Vitamin B1) 100 mg DAILY PO Last administered on 04/18/17 07:53 ; Start 04/17/17 at 10:45 Assessment and Plan Problem List: (1) Dysphagia Status: Acute Plan: will tolerate oral licuids and soft diet (2) Malnutrition Status: Acute Plan: titrate peg feedings will give in evenings (3) Primary tongue squamous cell carcinoma Status: Acute Plan: heme onc consulted Assessment and Plan doppler ordered for legs will add eucerine for skin Discussed Condition With patient Joseph Sharma DO Apr 18, 2017 15:13
[2017-04-18 15:33] VITALS: BP 99/65; PULSE 69; RESP 20; TEMP 96.1; O2SAT 98
--- NOTE | 2017-04-18 16:18 | RADRPT ---
EXAM DATE/TIME: 04/18/2017 15:19 [place] COMPARISON: No previous studies available for comparison. INDICATIONS : Bilateral leg swelling. MEDICAL HISTORY : Hypertension. Chronic obstructive pulmonary disease. Tongue cancer. Measles. Radiation therapy. SURGICAL HISTORY : Tubal ligation. Breast augmentation. Peg tube. Tongue cancer removal. ENCOUNTER: Initial ACUITY: 1 month PAIN SCORE: 5/10 LOCATION: Bilateral legs. TECHNIQUE: Venous ultrasound of the left and right leg was performed from the inguinal ligament to the proximal calf. Real-time, color Doppler and spectral tracing, compression and augmentation techniques were us ed. FINDINGS: RIGHT LEG: There is normal compressibility of the deep venous system from the inguinal region to the proximal ca lf. No echogenic clot is seen in the lumen of the common femoral, femoral, popliteal, and posterior tibial veins. There is a normal response of the venous system to proximal and distal augmentation an d respiration. LEFT LEG: There is normal compressibility of the deep venous system from the inguinal region to the proximal ca lf. No echogenic clot is seen in the lumen of the common femoral, femoral, popliteal, and posterior tibial veins. There is a normal response of the venous system to proximal and distal augmentation an d respiration. There is an approximate 1.7 cm lymph node most likely benign in the left groin with fatty hilum. CONCLUSION: Normal examination. Jaylen Hernandez MD on April 18, 2017 at 16:15 Board Certified Radiologist. This report was verified electronically.
[2017-04-18] MEDS: EUCERIN CREAM 120 GM JAR TOPICAL SCH ×2 (18:00→22:42)
[2017-04-18 20:00] VITALS: BP 106/65; PULSE 64; PULSE 76; RESP 16; TEMP 97.4; O2SAT 100
[2017-04-19] VITALS (10 sets, daily range): BP systolic 100–109; BP diastolic 67–75; PULSE 56–70; RESP 16–20; TEMP 96.3–97.6; O2SAT 97–100
--- NOTE | 2017-04-19 09:32 | HHI.PR ---
Subjective Remarks pt started tube feed last pm able to tolerate 450cc will need to be up to full recomendations to dc home will consult [facility] for dc Objective Vital Signs Date Time Temp Pulse Resp B/P Pulse Ox O2 Delivery O2 Flow Rate FiO2 04/19/17 08:00 96.3 60 20 105/67 98 04/19/17 04:01 56 04/19/17 04:00 96.8 60 16 109/71 99 04/19/17 00:00 97.6 61 17 105/71 100 04/19/17 00:00 66 04/18/17 20:00 97.4 64 16 106/65 100 04/18/17 20:00 76 04/18/17 15:33 96.1 69 20 99/65 98 04/18/17 11:50 97.6 71 20 99/68 99 I/O 04/18/17 04/18/17 04/18/17 04/19/17 04/19/17 04/19/17 06:59 14:59 22:59 06:59 14:59 22:59 Intake Total 480 ml 1257 ml 480 ml 240 ml Output Total 1000 ml 750 ml 1150 ml Balance -520 ml 1257 ml -270 ml -910 ml Intake Oral 480 ml 471 ml 480 ml 240 ml IV Total 350 ml Tube Feeding 436 ml Output Urine Total 1000 ml 750 ml 1150 ml # Voids 10 # Bowel Movements 4 Result Diagram: 04/18/17 0602 04/18/17 0602 Imaging Last 72 hours Impressions Lower Extremity Ultrasound 04/18/17 0000 Signed Impressions: Service Date/Time: Tuesday, April 18, 2017 15:19 - CONCLUSION: Normal examination. Jaylen Hernandez MD Chest X-Ray 04/17/17 0600 Signed Impressions: Service Date/Time: Monday, April 17, 2017 09:42 - CONCLUSION: No acute cardiopulmonary disease. Jaylen Hernandez MD ADDENDUM: The patient only has leg pain and does not have bilateral arm pain. Jaylen Hernandez MD Procedures Modified barium swallow Objective Remarks GENERAL: SKIN: Warm and dry. HEAD: Atraumatic. Normocephalic. EYES: Pupils equal and round. No scleral icterus. No injection or drainage. ENT: No nasal bleeding or discharge.marked disfiguration in tongue and oralpharnyx NECK: Trachea midline. No JVD. CARDIOVASCULAR: Regular rate and rhythm. RESPIRATORY: No accessory muscle use. Clear to auscultation. Breath sounds equal bilaterally. GASTROINTESTINAL: Abdomen soft, non-tender, nondistended. Hepatic and splenic margins not palpable. MUSCULOSKELETAL: Extremities without clubbing, cyanosis, or edema. No obvious deformities. legs dry red tender wiyh excoriation NEUROLOGICAL: Awake and alert. No obvious cranial nerve deficits. Motor grossly within normal limits. Five out of 5 muscle strength in the arms and legs. Normal speech. PSYCHIATRIC: Appropriate mood and affect; insight and judgment normal. Medications and IVs Inpatient Medications Azithromycin 500 mg/Sodium Chloride 250 ml @ 250 mls/hr ONCE ONCE IV Last administered on 04/14/17 22:53; Start 04/14/17 at 21:45; Stop 04/14/17 at 22:44 ; Status DC Azithromycin/ Sodium Chloride (Zithromax Inj/ NS 250 ml Inj) 250 ml @ 250 mls/ hr Q24H IV Last administered on 04/18/17 11:08; Start 04/15/17 at 12:00 Ceftriaxone Sodium 1000 mg/ Sodium Chloride 100 ml @ 200 mls/hr Q24H IV Last administered on 04/18/17 11:08; Start 04/15/17 at 10:00 Diatrizoate Meglum/ Diatrizoate Sod ( Gastroview Liq) 18 ml ONCE ONCE PO Last administered on 04/15/17 14:27; Start 04/15/17 at 12:15; Stop 04/15/17 at 12:16; Status DC Famotidine (Pepcid Inj) 20 mg Q12HR IV PUSH Last administered on 04/18/17 22: 43; Start 04/15/17 at 15:30 Fentanyl (Duragesic 25 Mcg Patch.72 Hr) 1 patch Q72H T-DERMAL Last administered on 04/17/17 23:02; Start 04/17/17 at 23:00 Folic Acid (Folate) 1 mg DAILY PO Last administered on 04/18/17 07:53; Start 04/17/17 at 10:45 Guaifenesin (Mucinex Er) 600 mg BID PO Last administered on 04/18/17 22:42; Start 04/16/17 at 10:00 Ketorolac Tromethamine 15 mg 15 mg ONCE ONCE IV PUSH Last administered on 04/14 22:20; Start 04/14/17 at 21:45; Stop 04/14/17 at 21:46; Status DC Lactobacillus Acidophilus 1 tab 1 tab Q12HR PO Last administered on 04/18/17 22:42; Start 04/16/17 at 21:00 Magnesium Sulfate/ Dextrose 100 ml @ 100 mls/hr Q1H IV Last administered on 16:08; Start 04/16/17 at 14:00; Stop 04/16/17 at 15:59; Status DC Miscellaneous Information 1 Q3D T-DERMAL Last administered on 04/17/17 23:00; Start 04/17/17 at 23:00 Multi-Ingredient Mouthwash/Gargle 10 ml 10 ml QID SWISH-SWAL Last administered on 04/18/17 22:42; Start 04/15/17 at 13:00 Multi-Ingredient Ointment (Eucerin Cream) 1 applic QID TOPICAL Last administered on 04/18/17 22:42; Start 04/18/17 at 18:00 Naloxone HCl (Narcan Inj) 0.4 mg UNSCH PRN IV SEE LABEL COMMENTS; Start at 22:15 Ondansetron HCl (Zofran Inj) 4 mg Q6H PRN IVP NAUSEA OR VOMITING; Start at 22:15 Oxycodone HCl (Roxicodone) 15 mg Q4H PRN PO PAIN Last administered on 06:46; Start 04/14/17 at 22:30 Potassium Bicarbonate (Effer-K Eff) 50 meq ONCE ONCE PO Last administered on 21:50; Start 04/15/17 at 19:45; Stop 04/15/17 at 21:38; Status DC Potassium Phosphate/Sodium Chloride (Potassium Phosphate Inj/NS Inj) 155 ml @ 38.75 mls/ hr ONCE ONCE IV Last administered on 04/16/17 17:44; Start at 13:45; Stop 04/16/17 at 17:44; Status DC Potassium Bicarb/ Potassium Chloride (K-Lyte Cl Eff) 25 meq ONCE ONCE PO Last administered on 04/15/17 12:13; Start 04/15/17 at 10:15; Stop 04/15/17 at 10:16; Status DC Sodium Chloride (1/2 NS 1000 ml Inj) 1,000 ml @ 75 mls/hr [id number] IV Last administered on 04/18/17 18:44; Start 04/14/17 at 22:12 Sodium Chloride (NS Flush) 2 ml BID IV FLUSH Last administered on 04/18/17 07: 54; Start 04/15/17 at 09:00 Thiamine HCl (Vitamin B1) 100 mg DAILY PO Last administered on 04/18/17 07:53 ; Start 04/17/17 at 10:45 Assessment and Plan Problem List: (1) Dysphagia Status: Acute Plan: will tolerate oral licuids and soft diet gradually increase TF (2) Malnutrition Status: Acute Plan: titrate peg feedings will give in evenings (3) Primary tongue squamous cell carcinoma Status: Acute Plan: heme onc consulted Assessment and Plan doppler ordered for legs will add eucerine for skin Discussed Condition With patient Discharge Planning home Joseph Sharma DO Apr 19, 2017 09:32
[2017-04-19] MEDS: POTASSIUM CHLORIDE 25 MEQ EFFERVESCENT TAB PO SCH (10:19)
[2017-04-19] MEDS: LACTOBACILLUS ACIDOPHILUS TAB PO SCH ×2 (10:19→22:07)
[2017-04-19] MEDS: FAMOTIDINE 20 MG/2 ML VIAL IV PUSH SCH ×2 (10:20→22:07)
[2017-04-19] MEDS: cefTRIAXone INJ 1,000 MG in SODIUM CHLORIDE 0.9% INJ 100 ML IV SCH (10:20)
[2017-04-19] MEDS: FOLIC ACID 1 MG TAB PO SCH (10:20)
[2017-04-19] MEDS: guaiFENesin E.R. 600 MG TAB PO SCH ×2 (10:20→22:07)
[2017-04-19] MEDS: THIAMINE HCL 100 MG TAB PO SCH (10:20)
[2017-04-19] MEDS: SODIUM CHLORIDE 0.9% FLUSH 10 ML FLUSH IV FLUSH SCH ×2 (10:21→21:00)
[2017-04-19] MEDS: SODIUM CHLOR 0.45% 1000 ML INJ 1,000 ML IV SCH (10:21)
[2017-04-19] MEDS: EUCERIN CREAM 120 GM JAR TOPICAL SCH ×4 (10:24→22:25)
[2017-04-19] MEDS: NYSTAT/DIPHENHY/LIDO MOUTHWASH (Adult) 120ML SWISH-SWAL SCH ×4 (10:24→22:07)
[2017-04-19] MEDS: AZITHROMYCIN INJ 500 MG in SODIUM CHLOR 0.9% 250 ML INJ 250 ML IV SCH (14:41)
[2017-04-20] VITALS (12 sets, daily range): BP systolic 91–112; BP diastolic 59–77; PULSE 57–80; RESP 16–20; TEMP 96.1–97.6; O2SAT 97–100
[2017-04-20] MEDS: guaiFENesin E.R. 600 MG TAB PO SCH ×2 (07:43→20:51)
[2017-04-20] MEDS: FOLIC ACID 1 MG TAB PO SCH (07:43)
[2017-04-20] MEDS: POTASSIUM CHLORIDE 25 MEQ EFFERVESCENT TAB PO SCH (07:43)
[2017-04-20] MEDS: THIAMINE HCL 100 MG TAB PO SCH (07:43)
[2017-04-20] MEDS: LACTOBACILLUS ACIDOPHILUS TAB PO SCH ×2 (07:43→20:51)
[2017-04-20] MEDS: EUCERIN CREAM 120 GM JAR TOPICAL SCH ×4 (07:44→20:53)
[2017-04-20] MEDS: NYSTAT/DIPHENHY/LIDO MOUTHWASH (Adult) 120ML SWISH-SWAL SCH ×4 (07:44→20:51)
[2017-04-20] MEDS: SODIUM CHLORIDE 0.9% FLUSH 10 ML FLUSH IV FLUSH SCH ×2 (07:44→20:54)
[2017-04-20] MEDS: FAMOTIDINE 20 MG/2 ML VIAL IV PUSH SCH ×2 (07:47→20:52)
[2017-04-20 10:02] LABS: AUTOMATED NEUTROPHIL # 2.4 TH/MM3 (1.8-7.7); BASOPHIL % 0.8 % (0.0-2.0); EOSINOPHIL # 0.1 TH/MM3 (0-0.4); EOSINOPHIL % 2.2 % (0.0-4.0); HEMATOCRIT 36.4 % (35.0-46.0); LYMPH % 13.8 % (9.0-44.0); LYMPHOCYTE # 0.4 TH/MM3 (1.0-4.8); MEAN CELL VOLUME 97.9 FL (80.0-100.0); MEAN CORPUSCULAR HEMOGLOBIN 32.6 PG (27.0-34.0); MEAN CORPUSCULAR HGB CONC 33.3 % (32.0-36.0); MONO % 8.5 % (0.0-8.0); NEUT % 74.7 % (16.0-70.0); PLATELET COUNT 87 TH/MM3 (150-450); RED BLOOD COUNT 3.71 MIL/MM3 (4.00-5.30); RED CELL DISTRIBUTION WIDTH 12.4 % (11.6-17.2); WHITE BLOOD COUNT 3.2 TH/MM3 (4.0-11.0)
[2017-04-20 10:36] LABS: HEMO FLAGS AUTO DIFF
[2017-04-20 10:37] LABS: PLATELET ESTIMATE SMEAR LOW (NORMAL); PLATELET MORPHOLOGY ENLARGED (NORMAL); SCAN/DIFF AUTO DIFF CONFIRMED
[2017-04-20] MEDS: cefTRIAXone INJ 1,000 MG in SODIUM CHLORIDE 0.9% INJ 100 ML IV SCH (11:01)
[2017-04-20 11:20] LABS: ANION GAP 6 MEQ/L (5-15); BICARBONATE 28.8 MEQ/L (21.0-32.0); BLOOD UREA NITROGEN LESS THAN 1 MG/DL (7-18); CHLORIDE 104 MEQ/L (98-107); GLOMERULAR FILTRATION RATE 302 ML/MIN (>89); POTASSIUM 4.3 MEQ/L (3.5-5.1); SODIUM (NA) 139 MEQ/L (136-145)
--- NOTE | 2017-04-20 12:11 | PD.ONC.PN ---
Subjective Subjective Remarks Afebrile overnight. Patient eager to go home. Tolerating nocturnal tube feeds. Resting in bed, no complaints. Objective Data Date Time Temp Pulse Resp B/P Pulse Ox O2 Delivery O2 Flow Rate FiO2 04/20/17 08:00 96.1 63 20 112/68 100 04/20/17 04:16 57 04/20/17 04:00 97.1 62 17 110/75 99 04/20/17 00:00 97.6 63 16 101/71 98 04/20/17 00:00 65 04/19/17 20:26 59 04/19/17 20:00 96.5 67 17 105/75 99 04/19/17 16:26 96.3 70 20 100/68 100 04/19/17 16:26 70 04/19/17 13:14 60 04/19/17 12:07 96.4 59 20 106/68 97 04/20/17 04/20/17 04/20/17 07:00 15:00 23:00 Intake Total 2527 ml 303 ml Output Total 1750 ml Balance 777 ml 303 ml Result Diagram: 04/20/1724 04/20/1724 Laboratory Results Laboratory Tests Test 04/20/17 09:24 White Blood Count 3.2 TH/MM3 Red Blood Count 3.71 MIL/MM3 Hemoglobin 12.1 GM/DL Hematocrit 36.4 % Mean Corpuscular Volume 97.9 FL Mean Corpuscular Hemoglobin 32.6 PG Mean Corpuscular Hemoglobin 33.3 % Concent Red Cell Distribution Width 12.4 % Platelet Count 87 TH/MM3 Mean Platelet Volume 12.8 FL Neutrophils (%) (Auto) 74.7 % Lymphocytes (%) (Auto) 13.8 % Monocytes (%) (Auto) 8.5 % Eosinophils (%) (Auto) 2.2 % Basophils (%) (Auto) 0.8 % Neutrophils # (Auto) 2.4 TH/MM3 Lymphocytes # (Auto) 0.4 TH/MM3 Monocytes # (Auto) 0.3 TH/MM3 Eosinophils # (Auto) 0.1 TH/MM3 Basophils # (Auto) 0.0 TH/MM3 CBC Comment AUTO DIFF Differential Comment AUTO DIFF CONFIRMED Platelet Estimate LOW Platelet Morphology Comment ENLARGED Red Cell Morphology Comment NORMAL Sodium Level 139 MEQ/L Potassium Level 4.3 MEQ/L Chloride Level 104 MEQ/L Carbon Dioxide Level 28.8 MEQ/L Anion Gap 6 MEQ/L Blood Urea Nitrogen LESS THAN 1 MG/DL Creatinine 0.24 MG/DL Estimat Glomerular Filtration 302 ML/MIN Rate Random Glucose 119 MG/DL Calcium Level 7.6 MG/DL Administered Medications Medications (Trade) Dose Ordered Sig/Sagar Route PRN Reason Start Time Stop Time Status Last Admin Dose Admin Sodium Chloride (1/2 NS 1000 ml Inj) 1,000 ml @ 75 mls/hr [id number] IV 04/14/17 22:12 04/19/17 10:21 Sodium Chloride (NS Flush) 2 ml BID IV FLUSH 04/15/17 09:00 04/19/17 10:21 Potassium Bicarb/ Potassium Chloride (K-Lyte Cl Eff) 25 meq DAILY PO 04/15/17 09:00 04/20/17 07:43 Oxycodone HCl (Roxicodone) 15 mg Q4H PRN PO PAIN 04/14/17 22:30 04/20/17 11:35 Multi-Ingredient Mouthwash/Gargle 10 ml 10 ml QID SWISH-SWAL 04/15/17 13:00 04/20/17 07:44 Ceftriaxone Sodium 1000 mg/ Sodium Chloride 100 ml @ 200 mls/hr Q24H IV 04/15/17 10:00 04/20/17 11:01 Azithromycin/ Sodium Chloride (Zithromax Inj/ NS 250 ml Inj) 250 ml @ 250 mls/hr Q24H IV 04/15/17 12:00 04/19/17 14:41 Famotidine (Pepcid Inj) 20 mg Q12HR IV PUSH 04/15/17 15:30 04/20/17 07:47 Guaifenesin (Mucinex Er) 600 mg BID PO 04/16/17 10:00 04/20/17 07:43 Lactobacillus Acidophilus (Lactinex) 1 tab Q12HR PO 04/16/17 21:00 04/20/17 07:43 Thiamine HCl (Vitamin B1) 100 mg DAILY PO 04/17/17 10:45 04/20/17 07:43 Folic Acid (Folate) 1 mg DAILY PO 04/17/17 10:45 04/20/17 07:43 Fentanyl (Duragesic 25 Mcg Patch.72 Hr) 1 patch Q72H T-DERMAL 04/17/17 23:00 04/17/17 23:02 Miscellaneous Information 1 Q3D T-DERMAL 04/17/17 23:00 04/17/17 23:00 Multi-Ingredient Ointment (Eucerin Cream) 1 applic QID TOPICAL 04/18/17 18:00 04/20/17 07:44 Objective Remarks GENERAL: Chronically ill appearing female sitting up in bed in [facility]. SKIN: Warm and dry. HEAD: Normocephalic. EYES: No injection or drainage. NECK: Supple, trachea midline. CARDIOVASCULAR: Regular rate and rhythm RESPIRATORY: Breath sounds equal bilaterally. No accessory muscle use. GASTROINTESTINAL: Abdomen soft, PEG tube, clamped, non-tender nondistended. EXTREMITIES: No cyanosis. 1+ pitting edema, BLE NEUROLOGICAL: awake and alert, normal speech. Assessment/Plan Problem List: (1) Primary tongue squamous cell carcinoma Status: Acute Plan: --P16 negative. --PET scan showed increased activity corresponding to the floor of the mouth mass. --underwent right partial glossectomy and right selective neck dissection at [facility]. On final pathology, margins were negative. Lymph node dissection was negative. --subsequently underwent radiation treatments. --did not follow up in our oncology clinic since June of 2016. --CT neck shows only post-surgical changes --CT A/P-->bowel wall thickening suggesting colitis and ascites. (2) Dysphagia Status: Acute Plan: --possibly d/t recurrent disease. --has PEG tube--tolerating Nocturnal tube feeds Vital 1.5 50cc/hr Reimbursement Liaison recommendations: 1. D/t intolerance of home bolus feedings, recommend nocturnal feedings of Vital 1.5 @ 75mls/hr x 10hrs (10PM-8AM). 2. Concern for refeeding syndrome 3. On first night, run TFing @ 20mls/hr x 10hrs. On second night, run TFing @ 30mls/hr x 10hrs. If electrolytes remain WNL, increase 20mls per night until pt is able to meet 75ml/hr goal rate. 4. Recommend 200ml water flushes Q 6hrs. (3) Pneumonia Status: Acute Plan: --on Rocephin + Zithromax (4) Pancytopenia Status: Acute Plan: -- mild leukopenia likely due to acute infection. monitor. --Thrombocytopenia also likely due to acute infection. --hepatitis profile pending. (5) Malnutrition Status: Acute Plan: --on nocturnal tube feeds. Assessment 51y/o female with a history of head and neck cancer admitted with nausea, vomiting, abdominal discomfort,lower extremity swelling and difficulty swallowing. h/o Squamous cell carcinoma of the base of the tongue COPD Tobacco abuse Hypertension Plan 1. continue nocturnal TF--not yet at goal rate 2. monitor CBC 3. continue antibiotics. Attending Statement The exam, history, and the medical decision-making described in the above note were completed with the assistance of the mid-level provider. I reviewed and agree with the findings presented. I attest that I had a [id number] encounter with the patient on the same day, and personally performed and documented my assessment and findings in the medical record. Problem Qualifiers (1) Pneumonia: Qualified Code: J18.9 - Pneumonia of both lower lobes due to infectious organism Anita Calderon Apr 20, 2017 12:10 Germán Shelton MD Apr 20, 2017 22:13
[2017-04-20] MEDS: AZITHROMYCIN INJ 500 MG in SODIUM CHLOR 0.9% 250 ML INJ 250 ML IV SCH (13:44)
[2017-04-20] MEDS: SODIUM CHLOR 0.45% 1000 ML INJ 1,000 ML IV SCH (15:36)
--- NOTE | 2017-04-20 19:53 | HHI.PR ---
Subjective Remarks 51 YOWFw ith Ca tongue, s/p surgery, PEG tube had cough this am and had mild chest discomfort No Fever Denies SOB Eating well Objective Vital Signs Vital Signs Date Time Temp Pulse Resp B/P Pulse Ox O2 Delivery O2 Flow Rate FiO2 04/20/17 16:00 96.4 69 16 103/67 99 04/20/17 15:31 77 109/77 04/20/17 15:23 80 04/20/17 13:00 97.1 65 16 91/61 97 04/20/17 10:28 65 04/20/17 08:52 64 04/20/17 08:00 96.1 63 20 112/68 100 04/20/17 04:16 57 04/20/17 04:00 97.1 62 17 110/75 99 04/20/17 00:00 97.6 63 16 101/71 98 04/20/17 00:00 65 04/19/17 20:26 59 04/19/17 20:00 96.5 67 17 105/75 99 I/O 04/19/17 04/19/17 04/19/17 04/20/17 04/20/17 04/20/17 07:00 15:00 23:00 07:00 15:00 23:00 Intake Total 240 ml 240 ml 480 ml 2527 ml 2248 ml Output Total 1150 ml 1750 ml Balance -910 ml 240 ml 480 ml 777 ml 2248 ml Intake Oral 240 ml 240 ml 480 ml 480 ml 940 ml IV Total 1221 ml 925 ml Tube Feeding 826 ml 323 ml Tube Irrigant 60 ml Output Urine Total 1150 ml 1750 ml # Voids 10 10 8 # Bowel Movements 3 1 4 Result Diagram: 04/20/1792304/20/17923 Objective Remarks GENERAL: Thin built WF NAD SKIN: Warm and dry. HEAD: Normocephalic. EYES: No scleral icterus. No injection or drainage. NECK: Supple, trachea midline. No JVD or lymphadenopathy. CARDIOVASCULAR: Regular rate and rhythm without murmurs, gallops, or rubs. RESPIRATORY: Breath sounds equal bilaterally. No accessory muscle use. GASTROINTESTINAL: Abdomen soft, non-tender, nondistended. MUSCULOSKELETAL: No cyanosis, or edema. Skin graft donor site left arm and rt thigh BACK: Nontender without obvious deformity. No CVA tenderness. A/P Assessment and Plan Lung infilt COPD Ca tongue, s/p surgery Nicotine use Dysphagia PLAN: Cont Abx Zithro and rocephin Aerosol nebs TF at night Calories count Stable from plum standpoint Available prn over weekend. Sánchez Dillon MD Apr 20, 2017 19:53
--- NOTE | 2017-04-20 20:33 | HHI.PR ---
Subjective Remarks TF increased but she is gaining edema will add diuretics and fu in am Objective Vital Signs Date Time Temp Pulse Resp B/P Pulse Ox O2 Delivery O2 Flow Rate FiO2 04/20/17 16:00 96.4 69 16 103/67 99 04/20/17 15:31 77 109/77 04/20/17 15:23 80 04/20/17 13:00 97.1 65 16 91/61 97 04/20/17 10:28 65 04/20/17 08:52 64 04/20/17 08:00 96.1 63 20 112/68 100 04/20/17 04:16 57 04/20/17 04:00 97.1 62 17 110/75 99 04/20/17 00:00 97.6 63 16 101/71 98 04/20/17 00:00 65 I/O 04/19/17 04/19/17 04/19/17 04/20/17 04/20/17 04/20/17 07:00 15:00 23:00 07:00 15:00 23:00 Intake Total 240 ml 240 ml 480 ml 2527 ml 2248 ml Output Total 1150 ml 1750 ml Balance -910 ml 240 ml 480 ml 777 ml 2248 ml Intake Oral 240 ml 240 ml 480 ml 480 ml 940 ml IV Total 1221 ml 925 ml Tube Feeding 826 ml 323 ml Tube Irrigant 60 ml Output Urine Total 1150 ml 1750 ml # Voids 10 10 8 # Bowel Movements 3 1 4 Result Diagram: 04/20/1792304/20/1724 Procedures Modified barium swallow Objective Remarks GENERAL: SKIN: Warm and dry. HEAD: Atraumatic. Normocephalic. EYES: Pupils equal and round. No scleral icterus. No injection or drainage. ENT: No nasal bleeding or discharge.marked disfiguration in tongue and oralpharnyx NECK: Trachea midline. No JVD. CARDIOVASCULAR: Regular rate and rhythm. RESPIRATORY: No accessory muscle use. Clear to auscultation. Breath sounds equal bilaterally. GASTROINTESTINAL: Abdomen soft, non-tender, nondistended. Hepatic and splenic margins not palpable. MUSCULOSKELETAL: Extremities without clubbing, cyanosis, 1-2 plus edema. No obvious deformities. legs dry red tender wiyh excoriation NEUROLOGICAL: Awake and alert. No obvious cranial nerve deficits. Motor grossly within normal limits. Five out of 5 muscle strength in the arms and legs. Normal speech. PSYCHIATRIC: Appropriate mood and affect; insight and judgment normal. Medications and IVs Inpatient Medications Azithromycin 500 mg/Sodium Chloride 250 ml @ 250 mls/hr ONCE ONCE IV Last administered on 04/14/17 22:53; Start 04/14/17 at 21:45; Stop 04/14/17 at 22:44 ; Status DC Azithromycin/ Sodium Chloride (Zithromax Inj/ NS 250 ml Inj) 250 ml @ 250 mls/ hr Q24H IV Last administered on 04/20/17 13:44; Start 04/15/17 at 12:00 Ceftriaxone Sodium 1000 mg/ Sodium Chloride 100 ml @ 200 mls/hr Q24H IV Last administered on 04/20/17 11:01; Start 04/15/17 at 10:00 Diatrizoate Meglum/ Diatrizoate Sod ( Gastrokannan Liq) 18 ml ONCE ONCE PO Last administered on 04/15/17 14:27; Start 04/15/17 at 12:15; Stop 04/15/17 at 12:16; Status DC Famotidine (Pepcid Inj) 20 mg Q12HR IV PUSH Last administered on 04/20/17 07: 47; Start 04/15/17 at 15:30 Fentanyl (Duragesic 25 Mcg Patch.72 Hr) 1 patch Q72H T-DERMAL Last administered on 04/17/17 23:02; Start 04/17/17 at 23:00 Folic Acid (Folate) 1 mg DAILY PO Last administered on 04/20/17 07:43; Start 04/17/17 at 10:45 Guaifenesin (Mucinex Er) 600 mg BID PO Last administered on 04/20/17 07:43; Start 04/16/17 at 10:00 Ketorolac Tromethamine 15 mg 15 mg ONCE ONCE IV PUSH Last administered on 04/14 22:20; Start 04/14/17 at 21:45; Stop 04/14/17 at 21:46; Status DC Lactobacillus Acidophilus 1 tab 1 tab Q12HR PO Last administered on 04/20/17 07:43; Start 04/16/17 at 21:00 Magnesium Sulfate/ Dextrose 100 ml @ 100 mls/hr Q1H IV Last administered on 16:08; Start 04/16/17 at 14:00; Stop 04/16/17 at 15:59; Status DC Miscellaneous Information 1 Q3D T-DERMAL Last administered on 04/17/17 23:00; Start 04/17/17 at 23:00 Multi-Ingredient Mouthwash/Gargle 10 ml 10 ml QID SWISH-SWAL Last administered on 04/20/17 17:15; Start 04/15/17 at 13:00 Multi-Ingredient Ointment (Eucerin Cream) 1 applic QID TOPICAL Last administered on 04/20/17 17:16; Start 04/18/17 at 18:00 Naloxone HCl (Narcan Inj) 0.4 mg UNSCH PRN IV SEE LABEL COMMENTS; Start at 22:15 Ondansetron HCl (Zofran Inj) 4 mg Q6H PRN IVP NAUSEA OR VOMITING; Start at 22:15 Oxycodone HCl (Roxicodone) 15 mg Q4H PRN PO PAIN Last administered on 19:32; Start 04/14/17 at 22:30 Potassium Bicarbonate (Effer-K Eff) 50 meq ONCE ONCE PO Last administered on 21:50; Start 04/15/17 at 19:45; Stop 04/15/17 at 21:38; Status DC Potassium Phosphate/Sodium Chloride (Potassium Phosphate Inj/NS Inj) 155 ml @ 38.75 mls/ hr ONCE ONCE IV Last administered on 04/16/17 17:44; Start at 13:45; Stop 04/16/17 at 17:44; Status DC Potassium Bicarb/ Potassium Chloride (K-Lyte Cl Eff) 25 meq ONCE ONCE PO Last administered on 04/15/17 12:13; Start 04/15/17 at 10:15; Stop 04/15/17 at 10:16; Status DC Sodium Chloride (1/2 NS 1000 ml Inj) 1,000 ml @ 75 mls/hr [id number] IV Last administered on 04/20/17 15:36; Start 04/14/17 at 22:12 Sodium Chloride (NS Flush) 2 ml BID IV FLUSH Last administered on 04/19/17 10: 21; Start 04/15/17 at 09:00 Thiamine HCl (Vitamin B1) 100 mg DAILY PO Last administered on 04/20/17t 07:43 ; Start 04/17/17 at 10:45 Assessment and Plan Problem List: (1) Dysphagia Status: Acute Plan: will tolerate oral licuids and soft diet gradually increase TF (2) Malnutrition Status: Acute Plan: titrate peg feedings will give in evenings (3) Primary tongue squamous cell carcinoma Status: Acute Plan: heme onc consulted Assessment and Plan doppler negative will add eucerine for skin add lasix for edema add lyrica for pain Joseph Sharma DO Apr 20, 2017 20:33
[2017-04-20] MEDS: PREGABALIN 75 MG CAP PO SCH (22:28)
[2017-04-20] MEDS: fentaNYL 25 MCG/HR PATCH T-DERMAL SCH (22:29)
[2017-04-20] MEDS: REMOVE OLD DURAGESIC (FENTANYL) PATCH T-DERMAL SCH (22:29)
[2017-04-21] VITALS (8 sets, daily range): BP systolic 92–112; BP diastolic 53–70; PULSE 64–76; RESP 16–20; TEMP 96.1–97.7; O2SAT 95–98
[2017-04-21] MEDS: PREGABALIN 75 MG CAP PO SCH ×3 (05:43→21:51)
[2017-04-21] MEDS: NYSTAT/DIPHENHY/LIDO MOUTHWASH (Adult) 120ML SWISH-SWAL SCH ×4 (08:42→21:51)
[2017-04-21] MEDS: FAMOTIDINE 20 MG/2 ML VIAL IV PUSH SCH ×2 (08:43→21:50)
[2017-04-21] MEDS: LACTOBACILLUS ACIDOPHILUS TAB PO SCH ×2 (08:43→21:51)
[2017-04-21] MEDS: THIAMINE HCL 100 MG TAB PO SCH (08:43)
[2017-04-21] MEDS: FOLIC ACID 1 MG TAB PO SCH (08:43)
[2017-04-21] MEDS: FUROSEMIDE 20 MG TAB PO SCH (08:43)
[2017-04-21] MEDS: guaiFENesin E.R. 600 MG TAB PO SCH ×2 (08:43→21:51)
[2017-04-21] MEDS: SODIUM CHLORIDE 0.9% FLUSH 10 ML FLUSH IV FLUSH SCH ×2 (08:44→21:54)
[2017-04-21] MEDS: POTASSIUM CHLORIDE 25 MEQ EFFERVESCENT TAB PO SCH (08:44)
[2017-04-21] MEDS ORDERED: FUROSEMIDE 40 MG/4 ML VIAL IV PUSH ONE (08:45)
[2017-04-21] MEDS: EUCERIN CREAM 120 GM JAR TOPICAL SCH ×4 (08:51→21:52)
[2017-04-21] MEDS: cefTRIAXone INJ 1,000 MG in SODIUM CHLORIDE 0.9% INJ 100 ML IV SCH (08:58)
[2017-04-21] MEDS: AZITHROMYCIN INJ 500 MG in SODIUM CHLOR 0.9% 250 ML INJ 250 ML IV SCH (08:59)
[2017-04-21] MEDS ORDERED: FUROSEMIDE 20 MG TAB PO SCH (09:00)
--- NOTE | 2017-04-21 13:25 | HHI.PR ---
Subjective Remarks Patient alert and oriented. 2-3 + edema noted bilaterally. No SOB or CP pain noted Objective Vital Signs Date Time Temp Pulse Resp B/P Pulse Ox O2 Delivery O2 Flow Rate FiO2 04/21/17 12:00 66 16 104/67 98 04/21/17 08:00 96.8 64 16 106/68 98 04/21/17 05:10 96.9 71 20 104/70 96 04/21/17 04:00 73 04/21/17 00:26 96.1 68 20 112/64 98 04/21/17 00:00 69 04/20/17 20:55 96.6 69 18 93/59 98 04/20/17 20:00 67 04/20/17 16:00 96.4 69 16 103/67 99 04/20/17 15:31 77 109/77 04/20/17 15:23 80 I/O 04/20/17 04/20/17 04/20/17 04/21/17 04/21/17 04/21/17 07:00 15:00 23:00 07:00 15:00 23:00 Intake Total 2527 ml 2248 ml Output Total 1750 ml Balance 777 ml 2248 ml Intake Oral 480 ml 940 ml IV Total 1221 ml 925 ml Tube Feeding 826 ml 323 ml Tube Irrigant 60 ml Output Urine Total 1750 ml # Voids 8 # Bowel Movements 4 Result Diagram: 04/20/1792304/20/17923 Procedures Modified barium swallow Objective Remarks GENERAL: Alert and oriented. Cachectic SKIN: Warm and dry. HEAD: Normocephalic. EYES: No scleral icterus. No injection or drainage. NECK: Supple, trachea midline. No JVD or lymphadenopathy. CARDIOVASCULAR: Regular rate and rhythm without murmurs, gallops, or rubs. RESPIRATORY: Breath sounds equal bilaterally. No accessory muscle use. GASTROINTESTINAL: Abdomen soft, non-tender, nondistended. MUSCULOSKELETAL: No cyanosis, or edema. BACK: Nontender without obvious deformity. No CVA tenderness. Medications and IVs Current Medications Medications (Trade) Dose Ordered Sig/Sagar Route Start Time Stop Time Status Last Admin (NS Flush) 2 ml UNSCH PRN IV FLUSH 04/14/17 22:15 (NS Flush) 2 ml BID IV FLUSH 04/15/17 09:00 04/21/17 08:44 (Zofran Inj) 4 mg Q6H PRN IVP 04/14/17 22:15 (Narcan Inj) 0.4 mg UNSCH PRN IV 04/14/17 22:15 (K-Lyte Cl Eff) 25 meq DAILY PO 04/15/17 09:00 04/21/17 08:44 (Roxicodone) 15 mg Q4H PRN PO 04/14/17 22:30 04/21/17 12:49 Multi-Ingredient Mouthwash/Gargle 10 ml 10 ml QID SWISH-SWAL 04/15/17 13:00 04/21/17 12:48 Ceftriaxone Sodium 1000 mg/ Sodium Chloride 100 ml @ 200 mls/hr Q24H IV 04/15/17 10:00 04/20/17 11:01 (Zithromax Inj/ NS 250 ml Inj) 250 ml @ 250 mls/hr Q24H IV 04/15/17 12:00 04/20/17 13:44 (Pepcid Inj) 20 mg Q12HR IV PUSH 04/15/17 15:30 04/21/17 08:43 (Mucinex Er) 600 mg BID PO 04/16/17 10:00 04/21/17 08:43 (Lactinex) 1 tab Q12HR PO 04/16/17 21:00 04/21/17 08:43 (Vitamin B1) 100 mg DAILY PO 04/17/17 10:45 04/21/17 08:43 (Folate) 1 mg DAILY PO 04/17/17 10:45 04/21/17 08:43 (Duragesic 25 Mcg Patch.72 Hr) 1 patch Q72H T-DERMAL 04/17/17 23:00 04/20/17 22:29 Miscellaneous Information 1 Q3D T-DERMAL 04/17/17 23:00 04/20/17 22:29 (Eucerin Cream) 1 applic QID TOPICAL 04/18/17 18:00 04/21/17 12:48 (Lyrica) 75 mg Q8HR PO 04/20/17 22:00 04/21/17 05:43 (Lasix) 20 mg DAILY PO 04/21/17 09:00 04/21/17 08:43 Assessment and Plan Problem List: (1) Pneumonia Status: Acute Plan: Chest Xray with bilateral lower lobe pneumonia. Pulmonary consulted. Antibiotics changed to Oral ST evaluation: Full liquid advance to pureed. Modified barium swallow with no penetration (2) Hypokalemia Status: Acute Plan: On replacement labs pending (3) Dysphagia Status: Acute Plan: Patient on pureed diet. Modified barium ordered with no penetration. (4) Chronic pain Status: Acute Plan: Continue current pain medication. Well controlled (5) Leg edema Status: Acute Plan: Edema increased lasix IV X 1 given and IVF discontinued. Will monitor (6) Pancytopenia Status: Acute Plan: Hematology consulted per note likely leukopenia and thrombocytopenia related to acute illness. (7) Hypoalbuminemia Status: Acute Plan: Dietary consult ordered for recommendation for feeding. She has been doing bolus however may benefit from continuous if she tolerates. Patient does not tolerate feeding. Reports that she takes only 1-2 cans per day secondary to abdominal discomfort. She appears very malnourished. tolerating nightly tube feeding. Does mention that she is feeling bloated will monitor (8) Thrush, oral Status: Acute Plan: On Magic mouth wash (9) Hypophosphatemia Status: Acute Plan: Replacement ordered recheck WNL (10) Loose stools Status: Acute Plan: C diff ordered negative. Stools improved (11) Abdominal discomfort Status: Acute Plan: Resolved. Assessment and Plan Assessment and plan discussed with Dr. Sharma Discussed Condition With Nursing Discharge Planning Home with [facility] Physician Attestation I and the OTORHINOLARYNGOLOGIST have both examined this patient and reviewed this note and I agree with these findings and plan of care. Joseph Sharma DO Problem Qualifiers (1) Pneumonia: Qualified Code: J18.9 - Pneumonia of both lower lobes due to infectious organism Penny Quesada OTORHINOLARYNGOLOGIST Apr 21, 2017 13:25
[2017-04-21 16:44] LABS: AUTOMATED NEUTROPHIL # 2.6 TH/MM3 (1.8-7.7); BASOPHIL % 0.6 % (0.0-2.0); EOSINOPHIL # 0.1 TH/MM3 (0-0.4); EOSINOPHIL % 1.7 % (0.0-4.0); HEMATOCRIT 33.5 % (35.0-46.0); LYMPH % 13.6 % (9.0-44.0); LYMPHOCYTE # 0.5 TH/MM3 (1.0-4.8); MEAN CELL VOLUME 96.6 FL (80.0-100.0); MEAN CORPUSCULAR HEMOGLOBIN 32.6 PG (27.0-34.0); MEAN CORPUSCULAR HGB CONC 33.8 % (32.0-36.0); MONO % 8.8 % (0.0-8.0); NEUT % 75.3 % (16.0-70.0); PLATELET COUNT 94 TH/MM3 (150-450); RED BLOOD COUNT 3.46 MIL/MM3 (4.00-5.30); RED CELL DISTRIBUTION WIDTH 12.3 % (11.6-17.2); WHITE BLOOD COUNT 3.5 TH/MM3 (4.0-11.0)
[2017-04-21 16:51] LABS: HEMO FLAGS AUTO DIFF
[2017-04-21 17:02] LABS: BICARBONATE 30.8 MEQ/L (21.0-32.0)
[2017-04-21 17:54] LABS: PLATELET ESTIMATE SMEAR LOW (NORMAL); PLATELET MORPHOLOGY NORMAL (NORMAL); SCAN/DIFF AUTO DIFF CONFIRMED
--- NOTE | 2017-04-21 19:09 | HHI.PR ---
Subjective Remarks 51 YOWFw ith Ca tongue, s/p surgery, PEG tube had cough this am and had mild chest discomfort No Fever Denies SOB Eating well Has swelling legs Objective Vital Signs Vital Signs Date Time Temp Pulse Resp B/P Pulse Ox O2 Delivery O2 Flow Rate FiO2 04/21/17 17:30 97.7 68 16 92/57 97 04/21/17 12:00 66 16 104/67 98 04/21/17 08:00 96.8 64 16 106/68 98 04/21/17 05:10 96.9 71 20 104/70 96 04/21/17 04:00 73 04/21/17 00:26 96.1 68 20 112/64 98 04/21/17 00:00 69 04/20/17 20:55 96.6 69 18 93/59 98 04/20/17 20:00 67 I/O 04/20/17 04/20/17 04/20/17 04/21/17 04/21/17 04/21/17 07:00 15:00 23:00 07:00 15:00 23:00 Intake Total 2527 ml 2248 ml 600 ml Output Total 1750 ml 2000 ml Balance 777 ml 2248 ml -1400 ml Intake Oral 480 ml 940 ml 600 ml IV Total 1221 ml 925 ml Tube Feeding 826 ml 323 ml Tube Irrigant 60 ml Output Urine Total 1750 ml 2000 ml # Voids 8 # Bowel Movements 4 2 Result Diagram: 04/21/17 1616 04/21/17 1616 Objective Remarks GENERAL: Thin built WF NAD SKIN: Warm and dry. HEAD: Normocephalic. EYES: No scleral icterus. No injection or drainage. NECK: Supple, trachea midline. No JVD or lymphadenopathy. CARDIOVASCULAR: Regular rate and rhythm without murmurs, gallops, or rubs. RESPIRATORY: Breath sounds equal bilaterally. No accessory muscle use. GASTROINTESTINAL: Abdomen soft, non-tender, nondistended. MUSCULOSKELETAL: No cyanosis, or edema. Skin graft donor site left arm and rt thigh BACK: Nontender without obvious deformity. No CVA tenderness. A/P Assessment and Plan Lung infilt COPD Ca tongue, s/p surgery Nicotine use Dysphagia PLAN: Cont Abx Zithro and rocephin Aerosol nebs TF at night Calories count Stable from plum standpoint DC plans underway for home Sánchez Dillon MD Apr 21, 2017 19:09
[2017-04-21] MEDS: CEFUROXIME AXETIL 500 MG TAB PO SCH (21:51)
[2017-04-22] VITALS (7 sets, daily range): BP systolic 85–97; BP diastolic 55–64; PULSE 67–86; RESP 16–20; TEMP 96.6–97.6; O2SAT 94–97
[2017-04-22] MEDS: PREGABALIN 75 MG CAP PO SCH ×2 (05:44→15:37)
[2017-04-22] MEDS: THIAMINE HCL 100 MG TAB PO SCH (07:43)
[2017-04-22] MEDS: LACTOBACILLUS ACIDOPHILUS TAB PO SCH (07:43)
[2017-04-22] MEDS: guaiFENesin E.R. 600 MG TAB PO SCH (07:44)
[2017-04-22] MEDS: CEFUROXIME AXETIL 500 MG TAB PO SCH (07:44)
[2017-04-22] MEDS: FUROSEMIDE 20 MG TAB PO SCH (07:44)
[2017-04-22] MEDS: FOLIC ACID 1 MG TAB PO SCH (07:44)
[2017-04-22] MEDS: NYSTAT/DIPHENHY/LIDO MOUTHWASH (Adult) 120ML SWISH-SWAL SCH ×3 (07:44→18:00)
[2017-04-22] MEDS: EUCERIN CREAM 120 GM JAR TOPICAL SCH ×3 (07:45→18:00)
[2017-04-22] MEDS: SODIUM CHLORIDE 0.9% FLUSH 10 ML FLUSH IV FLUSH SCH (07:45)
[2017-04-22] MEDS: FAMOTIDINE 20 MG/2 ML VIAL IV PUSH SCH (07:45)
[2017-04-22] MEDS: POTASSIUM CHLORIDE 25 MEQ EFFERVESCENT TAB PO SCH (07:45)
[2017-04-22 08:30] LABS: BICARBONATE 33.2 MEQ/L (21.0-32.0); POTASSIUM 3.9 MEQ/L (3.5-5.1)
[2017-04-22 08:46] LABS: CALCIUM-PROTEIN CORRECTED 8.9 MG/DL (8.5-10.1)
[2017-04-22] MEDS ORDERED: AZITHROMYCIN 250 MG TAB PO SCH (09:00)
--- NOTE | 2017-04-22 09:32 | EKG ---
Date Performed: 04/21/2017 Time Performed: 17:23:23 PTAGE: 51 years EKG: Sinus rhythm NONSPECIFIC T-WAVE ABNORMALITY BORDERLINE ECG PREVIOUS TRACING : 04/14/2017 21.06 DOCTOR: Cristian Sweeney Interpretating Date/Time 04/22/2017 09:30:35
[2017-04-22] MEDS ORDERED: LACT PO (13:33)
[2017-04-22] MEDS ORDERED: CEFU1TAB20 PO (13:33)
[2017-04-22] MEDS ORDERED: FURO20TA PO (13:33)
[2017-04-22] MEDS ORDERED: KLYTECL PO (13:33)
[2017-04-22] MEDS ORDERED: MAGICADU2 SWISH-SWAL (13:33)
[2017-04-22] MEDS ORDERED: AZIT250T3 PO (13:33)
[2017-04-22] MEDS ORDERED: [UNRECOGNIZED DRUG - CODE] (13:46)
--- NOTE | 2017-04-22 13:55 | HHI.DS ---
Discharge Summary Admission Date Apr 14, 2017 at 21:43 Admitting Diagnosis BILAT PNA; BLE EDEMA; TONGUE CA Procedures Modified barium swallow Brief History Patient is 51 year-old female history of COPD, hypertension, tongue cancer, presents to emergency department for evaluation of not feeling well. Patient states she has had nausea and vomiting with abdominal pain. CT ordered of abdomen. States that she does not eat food secondary to tongue cancer and difficulty swallowing however she does drink through a straw. She has a PEG tube present but states that she can only tolerate about 1-2 cans per day. She appears cachetic. She was found to have a bilateral pneumonia possibly aspiration. Pulmonary and ST consulted. ST recommending full liquid and possible modified barium swallow evaluation. Patient is also found to be pancytopenic with WBC 2.8, HGB 11.3, and PLTs of 71. Hematology oncology consulted. Patient reports that she is not sure if she is cancer free, swelling is noted in neck region. Patient is also concerned about bilateral lower extremity edema that is becoming more painful and extends to her thighs. This AM swelling appears to have improved. She states she has been treated for cellulitis recently. Denies any injury. CBC/BMP: 04/21/17 1616 04/22/17 0748 Significant Findings Laboratory Tests Test 04/20/17 04/21/17 04/22/17 09:24 16:16 07:48 White Blood Count 3.2 TH/MM3 3.5 TH/MM3 (4.0-11.0) (4.0-11.0) Red Blood Count 3.71 MIL/MM3 3.46 MIL/MM3 (4.00-5.30) (4.00-5.30) Platelet Count 87 TH/MM3 94 TH/MM3 (150-450) (150-450) Mean Platelet Volume 12.8 FL 12.3 FL (7.0-11.0) (7.0-11.0) Neutrophils (%) (Auto) 74.7 % 75.3 % (16.0-70.0) (16.0-70.0) Monocytes (%) (Auto) 8.5 % (0.0-8.0) 8.8 % (0.0-8.0) Lymphocytes # (Auto) 0.4 TH/MM3 0.5 TH/MM3 (1.0-4.8) (1.0-4.8) Platelet Estimate LOW (NORMAL) LOW (NORMAL) Platelet Morphology Comment ENLARGED (NORMAL) Blood Urea Nitrogen LESS THAN 1 2 MG/DL (7-18) 4 MG/DL (7-18) MG/DL (7-18) Creatinine 0.24 MG/DL 0.29 MG/DL 0.30 MG/DL (0.50-1.00) (0.50-1.00) (0.50-1.00) Random Glucose 119 MG/DL 140 MG/DL 205 MG/DL (74-106) (74-106) (74-106) Calcium Level 7.6 MG/DL 7.6 MG/DL 7.4 MG/DL (8.5-10.1) (8.5-10.1) (8.5-10.1) Hemoglobin 11.3 GM/DL (11.6-15.3) Hematocrit 33.5 % (35.0-46.0) Carbon Dioxide Level 33.2 MEQ/L (21.0-32.0) Total Protein 4.5 GM/DL (6.4-8.2) PE at Discharge GENERAL: Alert and oriented. Cachectic SKIN: Warm and dry. HEAD: Normocephalic. EYES: No scleral icterus. No injection or drainage. NECK: Supple, trachea midline. No JVD or lymphadenopathy. CARDIOVASCULAR: Regular rate and rhythm without murmurs, gallops, or rubs. RESPIRATORY: Breath sounds equal bilaterally. No accessory muscle use. GASTROINTESTINAL: Abdomen soft, non-tender, nondistended. MUSCULOSKELETAL: No cyanosis, or edema. BACK: Nontender without obvious deformity. No CVA tenderness. Hospital Course Patient is 51 year-old female history of COPD, hypertension, tongue cancer, presents to emergency department for evaluation of not feeling well. Patient states she has had nausea and vomiting with abdominal pain. CT ordered of abdomen. States that she does not eat food secondary to tongue cancer and difficulty swallowing however she does drink through a straw. She has a PEG tube present but states that she can only tolerate about 1-2 cans per day. She appears cachetic. She was found to have a bilateral pneumonia possibly aspiration. Pulmonary and ST consulted. ST recommending full liquid and possible modified barium swallow evaluation. Patient is also found to be pancytopenic with WBC 2.8, HGB 11.3, and PLTs of 71. Hematology oncology consulted. Patient reports that she is not sure if she is cancer free, swelling is noted in neck region. Patient is also concerned about bilateral lower extremity edema that is becoming more painful and extends to her thighs. Patient was followed by hematology and pulmonary. She was treated for her bilateral pneumonia and discharged on PO antibiotics. On RA. She was found to be very malnorhished and not tolerating her bolus tube feeding well. She passed her swallow eval however does not take in very much PO. She has improved during her course but we changed her to nocturnal feedings which she has tolerated well thus far. She also had significant swelling in lower extremity and has been put on lasix. Her swelling has improved but will need to be monitored. She is discharged home with [facility] and follow up with Dr. Sharma Pt Condition on Discharge: Good Discharge Disposition: Disch w/ Home Health Serv Discharge Instructions DIET: Follow Instructions for: As Tolerated, No Restrictions Activities you can perform: Regular-No Restrictions Follow up Referrals: PCP Follow-up - 1 Week with Zachary New Orders: BASIC METABOLIC PROF @ HOME VISIT CBC NO DIFF @ HOME VISIT New Medications: Feeding Tubes - Sets (Kangaroo Feeding/Irrigati) 1 Mis Mis CONTAINER .ROUTE #1 Azithromycin (Azithromycin) 250 Mg Tab 500 MG PO DAILY Infection #7 TAB Cefuroxime (Cefuroxime) 500 Mg Tab 500 MG PO Q12HR Infection #14 TAB Furosemide (Furosemide) 20 Mg Tab 20 MG PO DAILY Prevent Heart Failure #30 TAB Lactobacillus Acidophilus (Acidophilus/l-Sporogenes) 1 Tab Tab 1 TAB PO Q12HR Nutritional Supplement #60 TAB Ctqikseg-Vdafkeywczhtzff-Czrjnpykf Liq (Magic Mouthwash Adult Liq) 120 Ml Susp 10 ML SWISH-SWAL QID Infection #10 ML Potassium Bicarb-Chloride Effervescent (Effervescent Potassium Chloride 25 Meq) 25 Meq Tab 25 MEQ PO DAILY Nutritional Supplement #30 TAB Continued Medications: Fentanyl Patch 72 HR (Fentanyl Patch 72 HR) 25 Mcg/Hr Patch 12 MCG T-DERMAL Q72H Pain Management #10 Ref 0 PATCH Oxycodone (Oxycodone) 15 Mg Tab 15 MG PO Q4H PRN PAIN Ref 0 TAB Discontinued Medications: Potassium Bicarb-Chloride Effervescent (Effervescent Potassium Chloride 25 Meq) 25 Meq Tab 25 MEQ PO DAILY Electrolyte Replacement #30 TAB Gellermann,Penny M. NURSING AIDE Apr 22, 2017 13:55
--- NOTE | 2017-04-22 17:25 | HHI.PR ---
Subjective Remarks 51 YOWFw ith Ca tongue, s/p surgery, PEG tube had cough this am and had mild chest discomfort No Fever Denies SOB Has swelling legs Objective Vital Signs Vital Signs Date Time Temp Pulse Resp B/P Pulse Ox O2 Delivery O2 Flow Rate FiO2 04/22/17 16:18 97.3 77 20 97/63 96 04/22/17 12:31 96.6 72 20 96/63 94 04/22/17 08:00 97.3 86 20 97/60 96 04/22/17 04:00 97.0 79 16 89/56 96 04/22/17 04:00 77 04/22/17 03:59 96/64 04/22/17 00:48 90/61 04/22/17 00:00 67 04/22/17 00:00 97.6 75 16 85/55 97 04/21/17 20:00 76 04/21/17 20:00 97.3 68 16 92/53 95 04/21/17 17:30 97.7 68 16 92/57 97 I/O 04/21/17 04/21/17 04/21/17 04/22/17 04/22/17 04/22/17 06:59 14:59 22:59 06:59 14:59 22:59 Intake Total 1250 ml 350 ml 1244 ml Output Total 1200 ml 1500 ml 400 ml Balance -1200 ml -250 ml -50 ml 1244 ml Intake Oral 1250 ml 350 ml 1244 ml Output Urine Total 1200 ml 1500 ml 400 ml # Voids 8 # Bowel Movements 2 0 3 Result Diagram: 04/21/17 1616 04/22/17 0748 Objective Remarks GENERAL: Thin built WF NAD SKIN: Warm and dry. HEAD: Normocephalic. EYES: No scleral icterus. No injection or drainage. NECK: Supple, trachea midline. No JVD or lymphadenopathy. CARDIOVASCULAR: Regular rate and rhythm without murmurs, gallops, or rubs. RESPIRATORY: Breath sounds equal bilaterally. No accessory muscle use. GASTROINTESTINAL: Abdomen soft, non-tender, nondistended. MUSCULOSKELETAL: No cyanosis, or edema. Skin graft donor site left arm and rt thigh BACK: Nontender without obvious deformity. No CVA tenderness. A/P Assessment and Plan Lung infilt COPD Ca tongue, s/p surgery Nicotine use Dysphagia PLAN: Cont Abx Aerosol nebs TF at night Calories count Stable from plum standpoint Sánchez Dillon MD Apr 22, 2017 17:25
[2017-04-22] MEDS ORDERED: BEDSIDE COMMODE1 MI1 (18:14)
== END 2017-04-22 18:30 | disposition home health service (06) | DRG 177 ==
LOC: NEPC 20:06 → NEDA 21:43 → HOCA 04-15 00:01
PROVIDERS: ADMIT Family Medicine; ATTEND Family Medicine
DX: J69.0 Pneumonitis due to inhalation of food and vomit (principal); E43 Unspecified severe protein-calorie malnutrition; D61.818 Other pancytopenia; R64 Cachexia; B37.0 Candidal stomatitis; D69.59 Other secondary thrombocytopenia; Z68.1 Body mass index [BMI] 19.9 or less, adult; E83.39 Other disorders of phosphorus metabolism; R13.10 Dysphagia, unspecified; I10 Essential (primary) hypertension; J44.9 Chronic obstructive pulmonary disease, unspecified; E87.6 Hypokalemia; R60.0 Localized edema; R00.0 Tachycardia, unspecified; K52.9 Noninfective gastroenteritis and colitis, unspecified; G89.29 Other chronic pain; Z93.1 Gastrostomy status; Z85.810 Personal history of malignant neoplasm of tongue; Z92.21 Personal history of antineoplastic chemotherapy; Z92.3 Personal history of irradiation; Z87.891 Personal history of nicotine dependence
CPT/HCPCS: 70491; 71010; 71020; 74176; 74230; 76937; 80048; 80053; 80074; 81001; 83010; 83605; 83615; 83735; 83880; 84100; 84132; 84134; 84155; 84484; 85007; 85025; 85027; 85610; 85730; 87040; 87493; 93005; 93970; 94150; 96374; J0456; J0696; J1885; J1940; J2405; J3475; J7050; Q9963; Q9967

== ENCOUNTER 2018-10-07 18:57 | Inpatient (IN) ==
[2018-10-07] MEDS ORDERED: MethylPREDNISolone Sod Succinate Inj 125 MG/2 ML Vial IV.PUSH ONE (20:47)
--- NOTE | 2018-10-07 20:51 | ED ---
HPI General Chief complaint: Respiratory Symptoms Stated complaint: flu symp Time Seen by Provider: 10/07/18 20:47 Source: patient Mode of arrival: ambulatory Limitations: no limitations History of Present Illness HPI narrative: 53-year-old female patient with history of tongue cancer status post treatment, chronic neck pain, PEG tube, COPD which she states has not acted up in a long time, presents to the ER today with flulike symptoms for several days, coughing with yellow phlegm production, increased dyspnea on exertion and shortness of breath. She states she has been having sweats but she denies any fevers, vomiting, or other symptoms. Modifying Factors: None Associated Signs & Symptoms: Shortness of breath, dyspnea on exertion, coughing Risk Factors: COPD history Related Data Home Medications Medication Instructions Recorded Confirmed morphine 30 mg PO Q6H 10/07/18 10/07/18 oxycodone 15 mg PO Q4-6H PRN 10/07/18 10/07/18 Allergies Allergy/AdvReac Type Severity Reaction Status Date / Time No Known Allergies Allergy Verified 10/07/18 20:51 Review of Systems ROS: all other systems reviewed are negative PMFSH History History Provided By: Patient Medical History Medical History Hx of radiation therapy (Acute) Hx of tongue cancer (Acute) Surgical History Surgical History Hx of oral surgery (Acute) Social History Social History Smoking Status: Former smoker How Often Do You Have a Drink Containing Alcohol: Monthly or less Recent Travel in [facility] within the Last 8 Weeks: No Recent Out of Country Travel within the Last 8 Weeks: No Exam Narrative Exam Narrative: GENERAL: Well-developed middle-aged female patient currently in moderate distress. Awake and oriented x3. SKIN: Focused skin assessment warm/dry. HEAD: Atraumatic. Normocephalic. EYES: Pupils equal and round. No scleral icterus. No injection or drainage. ENT: No nasal bleeding or discharge. Mucous membranes pink and moist. NECK: Trachea midline. No JVD. CARDIOVASCULAR: Regular rate and rhythm. No murmur appreciated. RESPIRATORY: Mild accessory muscle use. Decreased throughout, mild wheezing. Breath sounds equal bilaterally. GASTROINTESTINAL: Abdomen soft, non-tender, nondistended. Hepatic and splenic margins not palpable. MUSCULOSKELETAL: No obvious deformities. No clubbing. No cyanosis. No edema. NEUROLOGICAL: Awake and alert. No obvious cranial nerve deficits. Motor grossly within normal limits. Normal speech. PSYCHIATRIC: Appropriate mood and affect; insight and judgment normal. Course Initial Documented Vital Signs Temperature 99.5 F 10/07/18 20:33 Pulse Rate 124 H 10/07/18 20:33 Respiratory Rate 18 10/07/18 20:33 Blood Pressure 120/78 10/07/18 20:33 Pulse Oximetry 82 L 10/07/18 20:33 Last Documented Vital Signs Temperature 99.5 F 10/07/18 20:33 Pulse Rate 121 H 10/07/18 22:04 Respiratory Rate 16 10/07/18 22:04 Blood Pressure 121/74 10/07/18 21:49 Pulse Oximetry 93 L 10/08/18 00:03 Medical Decision Making MDM Narrative Medical decision making narrative: Chest x-ray did not show any signs of acute pulmonary processes. She was given Solu-Medrol and nebulizers in the ER and after 4 nebulizers, she felt improved but she started getting hypoxic once taking office G oxygen and walking in the ER. At this point, my plan would be to admit the patient for further treatment. Case is discussed with Dr. Sharma for admission. Medical Screen Exam Complete: Yes Emergency Medical Condition: Yes Differential Diagnosis Differential Diagnosis: COPD exacerbation versus bronchitis versus pneumonia Lab Data Lab results reviewed: Yes I reviewed the patient's lab results. Result diagrams: 10/07/18 20:52 10/07/18 20:52 Lab Results 10/07/18 10/07/18 10/07/18 Range/Units 20:52 20:52 20:52 WBC 16.2 H (4.0-11.0) th/mm3 RBC 4.61 (4.00-5.30) mil/mm3 Hgb 15.1 (11.6-15.3) gm/dL Hct 43.7 (35.0-46.0) % MCV 94.9 (80.0-100.0) fL MCH 32.9 (27.0-34.0) pg MCHC 34.6 (32.0-36.0) % RDW 12.7 (11.6-17.2) % Plt Count 129 L (150-450) th/mm3 MPV 11.8 H (7.0-11.0) fL Neut % (Auto) 90.7 H (16.0-70.0) % Lymph % (Auto) 3.7 L (9.0-44.0) % [place] % (Auto) 5.4 (0.0-8.0) % Eos % (Auto) 0.0 (0.0-4.0) % Baso % (Auto) 0.2 (0.0-2.0) % Neut # (Auto) 14.7 H (1.8-7.7) th/mm3 Lymph # (Auto) 0.6 L (1.0-4.8) th/mm3 [place] # (Auto) 0.9 (0.0-0.9) th/mm3 Eos # (Auto) 0.0 (0.0-0.4) th/mm3 Baso # (Auto) 0.0 (0.0-0.2) th/mm3 WBC Differential . Differential Comment Auto diff final Sodium 130 L (136-145) meq/L Potassium 3.4 L (3.5-5.1) meq/L Chloride 90 L (98-107) meq/L Carbon Dioxide 32.3 H (21.0-32.0) meq/L Anion Gap 8 (5-15) meq/L BUN 6 L (7-18) mg/dL Creatinine 0.47 L (0.50-1.00) mg/dL Estimated GFR Greater than 89 (>89) mL/min Random Glucose 121 H (74-106) mg/dL Calcium 9.1 (8.5-10.1) mg/dL Total Bilirubin 0.5 (0.2-1.0) mg/dL AST 38 H (15-37) U/L ALT 40 (10-53) U/L Alkaline Phosphatase 154 H (45-117) U/L Troponin I Less than 0.02 L (0.02-0.05) ng/mL B-Natriuretic Peptide 60 (0-100) pg/mL Total Protein 8.0 (6.4-8.2) g/dL Albumin 3.4 (3.4-5.0) g/dL Imaging Data Attestation: I personally reviewed and interpreted this imaging study as follows : Radiologist's impression: Chest X-Ray 10/07/18 20:47 CONCLUSION: 1. No acute abnormality or significant interval change. Discharge Plan Discharge Disposition Patient Disposition: ED Admit(ED Internal Use Only) Discharge Condition Condition: Stable Discharge Order Discharge Orders: ED Use Only Admit Order (Routine); Ordered 10/08/18 Ordered By: Ivan Reddy Discharge Details Anticipated Discharge Date: 10/08/18 Diagnosis: COPD exacerbation Physicians Team ED Provider: Ivan Reddy Primary Care Provider: Joseph Sharma Attending Provider: Joseph Sharma Discharge Interventions Interventions: Vital Signs Last Done: 10/08/18 00:03 Status ED Status: Admitted Patient
[2018-10-07 21:10] LABS: Baso % (Auto) 0.2 % (0.0-2.0); Hematocrit 43.7 % (35.0-46.0); Hemoglobin 15.1 gm/dL (11.6-15.3); Lymph # (Auto) 0.6 th/mm3 (1.0-4.8); Lymph % (Auto) 3.7 % (9.0-44.0); Mean Corpuscular HGB Conc 34.6 % (32.0-36.0); Mean Corpuscular Hemoglobin 32.9 pg (27.0-34.0); Mean Corpuscular Volume 94.9 fL (80.0-100.0); Mean Platelet Volume 11.8 fL (7.0-11.0); Mono # (Auto) 0.9 th/mm3 (0.0-0.9); Mono % (Auto) 5.4 % (0.0-8.0); Neut # (Auto) 14.7 th/mm3 (1.8-7.7); Neut % (Auto) 90.7 % (16.0-70.0); Platelet Count 129 th/mm3 (150-450); Red Blood Count 4.61 mil/mm3 (4.00-5.30); Red Cell Distribution Width 12.7 % (11.6-17.2); White Blood Count 16.2 th/mm3 (4.0-11.0)
--- NOTE | 2018-10-07 21:23 | XR ---
EXAM DATE: 10/07/2018 9:21 PM EST AGE/SEX: 53 years / Female INDICATIONS: Shortness of breath, fever, cough, and congestion. CLINICAL DATA: This is the patient's initial encounter. Patient reports that signs and symptoms have been present for 4 - 6 days and indicates a pain score of 2/10. MEDICAL/SURGICAL HISTORY: . Hypertension. Chronic obstructive pulmonary disease. Tongue cancer. Measles. Radiation therapy. . Tubal ligation. Breast augmentation. Peg tube. Tongue cancer removal. COMPARISON: [facility] [place], CHEST PA & LAT, 04/17/2017. . FINDINGS: No significant new focal pleural or parenchymal opacities. The cardiomediastinal contours are unremar kable. Osseous structures are intact. CONCLUSION: 1. No acute abnormality or significant interval change. Electronically signed by: Juan Winters MD Board Certified Radiologist 10/07/2018 9:22 PM EST
[2018-10-07 21:32] LABS: Albumin 3.4 g/dL (3.4-5.0); Anion Gap 8 meq/L (5-15); Aspartate Aminotransferase 38 U/L (15-37); Blood Urea Nitrogen 6 mg/dL (7-18); Calcium 9.1 mg/dL (8.5-10.1); Carbon Dioxide 32.3 meq/L (21.0-32.0); Chloride 90 meq/L (98-107); Glomerular Filtration Rate Greater Than 89 mL/min (>89); Glucose,Random 121 mg/dL (74-106); Potassium 3.4 meq/L (3.5-5.1); Sodium 130 meq/L (136-145)
[2018-10-07 21:33] LABS: Alanine Aminotransferase 40 U/L (10-53)
[2018-10-07 21:36] LABS: Alkaline Phosphatase 154 U/L (45-117)
--- NOTE | 2018-10-08 12:35 | P.HPFP ---
History of Present Illness Primary Care Physician: Joseph Sharma DO History of Present Illness: 53-year-old female patient with history of tongue cancer status post treatment, with radiation as well as chronic neck pain, PEG tube, COPD presented to the ER with flulike symptoms for several days, coughing with yellow phlegm production , increased dyspnea on exertion and shortness of breath. She states she has been having sweats but she denies any fevers, vomiting, or other symptoms. - Diagnosis (1) COPD exacerbation Inpatient Certification: I certify that the inpatient services were ordered in accordance with Medicare regulations governing the order. This includes certification that hospital inpatient services are reasonable and necessary and in the case of services not specified as inpatient-only under 42 CFR 419.22(n), that they are appropriately provided as inpatient services in accordance to with the 2-midnight benchmark under 43 CFR 412.3(e) Estimated Total Length of Stay (Days): 5 Plans for Post Hospital Care: Home [facility] - History History Provided By: Patient - Medical History Medical History: Medical History (Last Reviewed 10/07/18 @ 20:51 by Ivan Reddy MD) Hx of radiation therapy Hx of tongue cancer - Surgical History Surgical History: Surgical History (Last Reviewed 10/07/18 @ 20:51 by Ivan Reddy MD) Hx of oral surgery - Tobacco History Smoking Status: Former smoker - Alcohol History How Often Do You Have a Drink Containing Alcohol: Monthly or less - Travel History Recent Travel in the [place] Within the Last 8 Weeks: No Recent Travel Out of the Country Within the Last 8 Weeks: No - Immunization History Tetanus Immunization: >5 Years Medications and Allergies Allergies Allergy/AdvReac Type Severity Reaction Status Date / Time No Known Allergies Allergy Verified 10/07/18 20:51 Home Medications Medication Instructions Recorded Confirmed Type morphine 30 mg PO Q6H 10/07/18 10/07/18 History oxycodone 15 mg PO Q4-6H PRN 10/07/18 10/07/18 History Exam Vital signs: Vital Signs 10/07/18 20:33 10/07/18 20:47 10/07/18 21:01 Temperature 99.5 F Pulse Rate 124 H 120 H 107 H Respiratory Rate 18 26 H 20 Blood Pressure 120/78 140/92 H Pulse Oximetry 82 L 92 L 10/07/18 21:02 10/07/18 21:49 10/07/18 22:04 Temperature Pulse Rate 115 H 121 H Respiratory Rate 20 16 Blood Pressure 121/74 Pulse Oximetry 98 96 10/08/18 00:02 10/08/18 00:03 10/08/18 04:24 Temperature 97.7 F Pulse Rate 73 Respiratory Rate 16 Blood Pressure 113/67 Pulse Oximetry 71 L 93 L 98 10/08/18 07:15 10/08/18 12:00 Temperature 97.8 F Pulse Rate 95 H 86 Respiratory Rate 18 20 Blood Pressure 105/71 125/71 Pulse Oximetry 92 L 98 Intake & Output 10/07/18 10/08/18 10/08/18 18:59 06:59 18:59 Weight 44.906 kg - Constitutional no acute distress - Routine HEENT Exam Eye: Present: PERRL ENT: Present: mucous membranes moist Comments: No teeth, wears upper dentures, does not have them in - Routine Respiratory Exam Present: wheezes, diminished air movement - Routine Cardiovascular Exam Present: S1, S2 - Routine Abdominal Exam Present: soft, normoactive bowel sounds - Routine Skin Exam Present: dry, warm - Routine Neurological Exam Present: alert, oriented X3 Results - Labs Result diagrams: 10/07/18 20:52 10/07/18 20:52 Abnormal lab results 10/07/18 10/07/18 Range/Units 20:52 20:52 WBC 16.2 H (4.0-11.0) th/mm3 Plt Count 129 L (150-450) th/mm3 MPV 11.8 H (7.0-11.0) fL Neut % (Auto) 90.7 H (16.0-70.0) % Lymph % (Auto) 3.7 L (9.0-44.0) % Neut # (Auto) 14.7 H (1.8-7.7) th/mm3 Lymph # (Auto) 0.6 L (1.0-4.8) th/mm3 Sodium 130 L (136-145) meq/L Potassium 3.4 L (3.5-5.1) meq/L Chloride 90 L (98-107) meq/L Carbon Dioxide 32.3 H (21.0-32.0) meq/L BUN 6 L (7-18) mg/dL Creatinine 0.47 L (0.50-1.00) mg/dL Random Glucose 121 H (74-106) mg/dL AST 38 H (15-37) U/L Alkaline Phosphatase 154 H (45-117) U/L Troponin I Less than 0.02 L (0.02-0.05) ng/mL Short CBC 10/07/18 Range/Units 20:52 WBC 16.2 H (4.0-11.0) th/mm3 Hgb 15.1 (11.6-15.3) gm/dL Hct 43.7 (35.0-46.0) % Plt Count 129 L (150-450) th/mm3 BMP 10/07/18 20:52 Sodium 130 L Potassium 3.4 L Chloride 90 L Carbon Dioxide 32.3 H BUN 6 L Creatinine 0.47 L Calcium 9.1 Cardiac Enzymes 10/07/18 Range/Units 20:52 Troponin I Less than 0.02 L (0.02-0.05) ng/mL Liver Function 10/07/18 Range/Units 20:52 Total Bilirubin 0.5 (0.2-1.0) mg/dL AST 38 H (15-37) U/L ALT 40 (10-53) U/L Alkaline Phosphatase 154 H (45-117) U/L Albumin 3.4 (3.4-5.0) g/dL - Imaging Impressions Chest X-Ray 10/07/18 20:47 CONCLUSION: 1. No acute abnormality or significant interval change. Caprini VTE Risk Assessment Caprini VTE Risk Assessment: No/Low Risk (score <= 1) Caprini Risk Assessment Model: Point Value = 1 Point Value = 2 Point Value = 3 Point Value = 5 Age 41-60 Minor surgery BMI > 25 kg/m2 Swollen legs Varicose veins or History of unexplained or recurrent spontaneous Oral contraceptives or hormone replacement Sepsis (< 1 month) Serious lung disease, including pneumonia (< 1 month) Abnormal pulmonary function Acute myocardial infarction Congestive heart failure (< 1 month) History of inflammatory bowel disease Medical patient at bed rest Age 61-74 Arthroscopic surgery Major open surgery (> 45 min) Laparoscopic surgery (> 45 min) Malignancy Confined to bed (> 72 hours) Immobilizing plaster cast Central venous access Age >= 75 History of VTE Family history of VTE Factor V Leiden Prothrombin [id number] Lupus anticoagulant Anticardiolipin antibodies Elevated serum homocysteine Heparin-induced thrombocytopenia Other congenital or acquired thrombophilia Stroke (< 1 month) Elective arthroplasty Hip, pelvis, or leg fracture Acute spinal cord injury (< 1 month) Prophylaxis Regimen: Total Risk Factor Score Risk Level Prophylaxis Regimen 0-1 Low Early ambulation 2 Moderate Order ONE of the following: *Sequential Compression Device (SCD) *Heparin 5000 units SQ BID 3-4 Higher Order ONE of the following medications: *Heparin 5000 units SQ TID *Enoxaparin/Lovenox 40 mg SQ daily (WT < 150 kg, CrCl > 30 mL/min) *Enoxaparin/Lovenox 30 mg SQ daily (WT < 150 kg, CrCl > 10-29 mL/min) *Enoxaparin/Lovenox 30 mg SQ BID (WT < 150 kg, CrCl > 30 mL/min) AND/OR *Sequential Compression Device (SCD) 5 or more Highest Order ONE of the following medications: *Heparin 5000 units SQ TID (Preferred with Epidurals) *Enoxaparin/Lovenox 40 mg SQ daily (WT < 150 kg, CrCl > 30 mL/min) *Enoxaparin/Lovenox 30 mg SQ daily (WT < 150 kg, CrCl > 10-29 mL/min) *Enoxaparin/Lovenox 30 mg SQ BID (WT < 150 kg, CrCl > 30 mL/min) AND *Sequential Compression Device (SCD) Assessment and Plan - Assessment (1) COPD exacerbation Code(s): J44.1 - Chronic obstructive pulmonary disease with (acute) exacerbation Status: Acute Plan: oxygen support, bronchodilators, Pulmonary consult - Assessment and Plan Hepas will assume care on 10/09/18 0700
[2018-10-08] MEDS: Benzonatate 100 MG Capsule PO PRN (17:24)
--- NOTE | 2018-10-08 21:01 | MB ---
cc: Sánchez Dillon MD DATE: 10/08/2018 REQUESTING PHYSICIAN: Dr. Joseph Sharma. REASON FOR CONSULTATION: Evaluation for shortness of breath. HISTORY OF PRESENT ILLNESS: The patient is a 53-year-old female with a history of squamous cell carcinoma of the tongue. She underwent partial glossectomy and lymph node dissection and radiation treatment. She has dysphagia. She is able to eat soft food and has a PEG tube which she uses tube feeding at nighttime. She came to the hospital with a 5-day history of worsening of her shortness of breath, cough and congestion and wheezing. Did not have any fever or chills. No night sweats. She had flu-like symptoms and most of the family members are sick at home. The patient was evaluated in the hospital. She had a chest x-ray done which shows no acute abnormality. Her CBC shows WBC count 16.2, hemoglobin 15.1, hematocrit 43.7, MCV 94, platelet count 129. Sodium 130, potassium 3.4, chloride 90, CO2 32, BUN 6, creatinine 0.47. PAST MEDICAL HISTORY: 1. Significant for history of squamous cell carcinoma of the tongue, status post partial glossectomy and radiation treatment. 2. History of chronic obstructive pulmonary disease. 3. History of PEG tube placement. MEDICATIONS: She is currently taking hydrocodone for pain, albuterol and Atrovent nebulizer treatments, aspirin 500 mg a day. ALLERGIES: NO KNOWN DRUG ALLERGIES. SOCIAL HISTORY: She is . Has history of smoking, which she quit when she was diagnosed with cancer. History of alcohol abuse. FAMILY HISTORY: She has 2 children. REVIEW OF SYSTEMS: She has lost some weight. Has no fever, chills. No night sweats. No DVT. PHYSICAL EXAMINATION: GENERAL: Thin-built female, mildly short of breath, not in any acute distress. VITAL SIGNS: Blood pressure 140/73, heart rate 104, respirations 17, temperature 97.5. HEENT: Pupils are equal and reactive to light. NECK: Supple. JVD not raised. CHEST: She has expiratory rhonchi. HEART: S1, S2 normal. ABDOMEN: Benign. EXTREMITIES: No edema. IMPRESSION: 1. Chronic obstructive pulmonary disease exacerbation. 2. Bronchitis. 3. History of cancer of the tongue, status post partial glossectomy, neck dissection, and radiation treatment. 4. History of nicotine use. 5. Alcohol use in the past. PLAN: I discussed with the patient I will give her IV Solu-Medrol 40 mg q.6 hours, Zithromax 500 mg a day, aerosols with albuterol and Atrovent, supplemental oxygen. She eats soft food and tube feeding at nighttime. Further treatment will depend on the course in the hospital. Thank you, Dr. Sharma, for this consult. Sánchez Dillon MD ADA/ll , 07:44 PM , 07:50 PM
[2018-10-08] MEDS: MethylPREDNISolone Sod Succinate Inj 40 MG/ML Vial IV.PUSH SCH (23:06)
[2018-10-09] MEDS: Benzonatate 100 MG Capsule PO PRN ×3 (03:06→20:27)
[2018-10-09] MEDS: MethylPREDNISolone Sod Succinate Inj 40 MG/ML Vial IV.PUSH SCH ×4 (03:06→20:27)
[2018-10-09] MEDS ORDERED: Influenza (Quadrivalent) Vaccine 0.5 ML Syringe IM ONE (08:00)
[2018-10-09] MEDS: Azithromycin 250 MG Tablet PO SCH (08:58)
--- NOTE | 2018-10-09 15:04 | P.PNIM ---
Subjective Interval history: Follow up for COPD exacerbation. Patient is currently doing well on nasal cannula. No fever, chills. Continues to have cough. Tolerating diet well. Asks about long acting pain medications such as morphone and oxycodone. Physical Exam Vital signs: Last Vital Signs Temp 97.2 F L 10/09/18 12:00 Pulse 76 10/09/18 12:00 Resp 17 10/09/18 12:00 BP 134/70 10/09/18 12:00 Pulse Ox 93 L 10/09/18 12:00 Intake & Output 10/07/18 10/08/18 10/09/18 10/10/18 06:59 06:59 06:59 06:59 Intake Total 480 / 480 Balance 480 / 480 Weight 44.906 kg 47.2 kg Narrative: GENERAL: Alert, NAD. On Nasal Cannula. SKIN: Warm and dry. HEAD: Normocephalic. EYES: No scleral icterus. No injection or drainage. NECK: Supple, trachea midline. No JVD or lymphadenopathy. CARDIOVASCULAR: Regular rate and rhythm without murmurs, gallops, or rubs. RESPIRATORY: Moderate air entry, crackles noted on the left posterior lung field. No accessory muscle use. GASTROINTESTINAL: Abdomen soft, non-tender, nondistended. MUSCULOSKELETAL: No cyanosis, or edema. BACK: Nontender without obvious deformity. No CVA tenderness. Results Labs CBC & Chem 7: 10/07/18 20:52 10/07/18 20:52 Assessment and Plan (1) COPD exacerbation: Code(s): J44.1 - Chronic obstructive pulmonary disease with (acute) exacerbation Status: Acute Plan Ms. Hua is a 53 year old female with a history of squamous cell carcinoma of the tongue who was admitted to the hospital due to 5-day duration of worsening shortness of breath. Pulmonology was consulted for COPD exacerbation. Acute exacerbation of COPD Continue albuterol nebulizer treatment, Solu-Medrol, azithromycin. Continue nasal cannula supplemental oxygen. History of squamous cell tongue cancer No acute issues. Chronic pain Patient currently is receiving [place] 10 mg / 325 mg every 6 hours as needed. Patient apparently has appointment to see outpatient pain management physician. Patient requests change pain medication to oxycodone and long-acting morphine. I advised patient that she needs to follow-up with her pain management physician. Full code. Initiate Lovenox 40 mg daily for DVT prophylaxis. Progress Note: Quality VTE Deep Vein Thrombosis/Pulmonary Embolism Present on Admission: No
[2018-10-09] MEDS: Enoxaparin Inj 40 MG/0.4 ML Syringe SQ SCH (17:03)
--- NOTE | 2018-10-09 17:21 | P.PNPL ---
Subjective Interval history: 53 YOWF with Ca tongue, s/p partial glossectomy, radiation treatment Has cough, congestion Still has wheezing Wants her pain meds no fever Physical Exam Vital signs: Vital Signs 10/08/18 17:26 10/08/18 17:38 10/08/18 20:00 Temperature 97.2 F L Pulse Rate 97 H 81 Respiratory Rate 20 18 20 Blood Pressure 117/77 Pulse Oximetry 96 10/08/18 23:55 10/09/18 00:00 10/09/18 04:00 Temperature 97.3 F L 95.1 F L Pulse Rate 76 79 Respiratory Rate 22 20 20 Blood Pressure 115/69 104/73 Pulse Oximetry 95 94 L 10/09/18 08:00 10/09/18 08:24 10/09/18 12:00 Temperature 97.1 F L 97.2 F L Pulse Rate 103 H 70 76 Respiratory Rate 18 16 17 Blood Pressure 122/71 134/70 Pulse Oximetry 93 L 95 93 L Intake & Output 10/08/18 10/09/18 10/09/18 18:59 06:59 18:59 Intake Total 480 / 480 Balance 480 / 480 Weight 44.5 kg 47.2 kg Intake: Oral 480 / 480 Other: # Voids 2 # Bowel Movements 0 Weight On Admission 44.5 kg GENERAL: MBMN NAD SKIN: Warm and dry. HEAD: Normocephalic. EYES: No scleral icterus. No injection or drainage. NECK: Supple, trachea midline. No JVD or lymphadenopathy. CARDIOVASCULAR: Regular rate and rhythm without murmurs, gallops, or rubs. RESPIRATORY: Breath sounds equal bilaterally. No accessory muscle use. Exp rhonchi GASTROINTESTINAL: Abdomen soft, non-tender, nondistended. MUSCULOSKELETAL: No cyanosis, or edema. BACK: Nontender without obvious deformity. No CVA tenderness. Assessment and Plan - Plan IMPRESSION: 1. Chronic obstructive pulmonary disease exacerbation. 2. Bronchitis. 3. History of cancer of the tongue, status post partial glossectomy, neck dissection, and radiation treatment. 4. History of nicotine use. 5. Alcohol use in the past. PLAN: Aerosol nebs IV Solumedrol Cont Abx Supplement 02 Robitussin DM cough syp [place] [facility]
[2018-10-09] MEDS: guaiFENesin/Dextromethorphan 200 MG/20 MG 10 ML UDC PO SCH ×2 (17:55→23:30)
[2018-10-10] MEDS: MethylPREDNISolone Sod Succinate Inj 40 MG/ML Vial IV.PUSH SCH ×4 (01:59→20:24)
[2018-10-10] MEDS: guaiFENesin/Dextromethorphan 200 MG/20 MG 10 ML UDC PO SCH ×4 (05:22→23:33)
[2018-10-10] MEDS: Benzonatate 100 MG Capsule PO PRN ×3 (05:22→22:17)
[2018-10-10] MEDS: Azithromycin 250 MG Tablet PO SCH (08:56)
[2018-10-10] MEDS: Enoxaparin Inj 40 MG/0.4 ML Syringe SQ SCH (09:00)
--- NOTE | 2018-10-10 14:53 | P.PNIM ---
Subjective Interval history: Follow up for COPD exacerbation. Patient complains of wet cough but unable to bring it up. Currently on 5L of O2 via [place]. No fever, chills. Mother at bedside. Physical Exam Vital signs: Last Vital Signs Temp 98.1 F 10/10/18 12:00 Pulse 72 10/10/18 12:00 Resp 18 10/10/18 12:00 BP 126/83 10/10/18 12:00 Pulse Ox 95 10/10/18 13:14 Intake & Output 10/08/18 10/09/18 10/10/18 10/11/18 06:59 06:59 06:59 06:59 Intake Total 480 / 480 1200 / 1200 Balance 480 / 480 1200 / 1200 Weight 44.906 kg 47.2 kg Narrative: GENERAL: Alert, NAD. On Nasal Cannula. SKIN: Warm and dry. HEAD: Normocephalic. EYES: No scleral icterus. No injection or drainage. NECK: Supple, trachea midline. No JVD or lymphadenopathy. CARDIOVASCULAR: Regular rate and rhythm without murmurs, gallops, or rubs. RESPIRATORY: Moderate air entry, Diffuse coarse breath sound. No accessory muscle use. GASTROINTESTINAL: Abdomen soft, non-tender, nondistended. MUSCULOSKELETAL: No cyanosis, or edema. BACK: Nontender without obvious deformity. No CVA tenderness. Results Labs CBC & Chem 7: 10/07/18 20:52 10/07/18 20:52 Assessment and Plan (1) COPD exacerbation: Code(s): J44.1 - Chronic obstructive pulmonary disease with (acute) exacerbation Status: Acute Plan Ms. Hua is a 53 year old female with a history of squamous cell carcinoma of the tongue who was admitted to the hospital due to 5-day duration of worsening shortness of breath. Pulmonology was consulted for COPD exacerbation. Acute exacerbation of COPD Continue scheduled and as needed DuoNeb treatment, Solu-Medrol, azithromycin. Continue nasal cannula supplemental oxygen. currently on 5L. Wean off to keep O2 sat > 90%. Add Mucomyst nebulizer treatment Continue Robitussin for cough History of squamous cell tongue cancer No acute issues. Chronic pain Patient currently is receiving [place] 10 mg / 325 mg every 6 hours as needed. Patient apparently has appointment to see outpatient pain management physician. Patient requests to change pain medication to oxycodone and long-acting morphine. I advised patient that she needs to follow-up with her pain management physician. Full code. Lovenox 40 mg daily for DVT prophylaxis. Progress Note: Quality VTE Deep Vein Thrombosis/Pulmonary Embolism Present on Admission: No
[2018-10-10] MEDS ORDERED: Influenza (Quadrivalent) Vaccine 0.5 ML Syringe IM ONE (16:00)
--- NOTE | 2018-10-10 17:32 | P.PNPL ---
Subjective Interval history: 53 YOWF with Ca tongue, s/p partial glossectomy, radiation treatment Has cough, congestion Still has wheezing no fever No sputum Physical Exam Vital signs: Vital Signs 10/09/18 20:00 10/09/18 21:17 10/10/18 00:00 Temperature 97.8 F 97.2 F L Pulse Rate 75 72 Respiratory Rate 16 17 Blood Pressure 120/77 145/89 H Pulse Oximetry 92 L 93 L 96 10/10/18 02:24 10/10/18 04:00 10/10/18 08:00 Temperature 97.3 F L 97.9 F Pulse Rate 77 73 68 Respiratory Rate 17 18 18 Blood Pressure 129/70 166/83 H Pulse Oximetry 94 L 96 10/10/18 12:00 10/10/18 13:14 10/10/18 17:09 Temperature 98.1 F Pulse Rate 72 69 Respiratory Rate 18 18 Blood Pressure 126/83 Pulse Oximetry 93 L 95 Intake & Output 10/09/18 10/10/18 10/10/18 18:59 06:59 18:59 Intake Total 720 / 720 480 / 480 Balance 720 / 720 480 / 480 Intake: Oral 720 / 720 480 / 480 Other: # Voids 4 2 Date of Last Bowel Movement 10/09/17 10/09/17 # Bowel Movements 2 2 GENERAL: MBMN NAD SKIN: Warm and dry. HEAD: Normocephalic. EYES: No scleral icterus. No injection or drainage. NECK: Supple, trachea midline. No JVD or lymphadenopathy. CARDIOVASCULAR: Regular rate and rhythm without murmurs, gallops, or rubs. RESPIRATORY: Breath sounds equal bilaterally. No accessory muscle use. GASTROINTESTINAL: Abdomen soft, non-tender, nondistended. MUSCULOSKELETAL: No cyanosis, or edema. BACK: Nontender without obvious deformity. No CVA tenderness. Assessment and Plan - Plan IMPRESSION: 1. Chronic obstructive pulmonary disease exacerbation. 2. Bronchitis. 3. History of cancer of the tongue, status post partial glossectomy, neck dissection, and radiation treatment. 4. History of nicotine use. 5. Alcohol use in the past. PLAN: Aerosol nebs IV Solumedrol Cont Abx Supplement 02 Robitussin DM cough syp [place] for Pain Mucomyst nebs
[2018-10-11] MEDS: MethylPREDNISolone Sod Succinate Inj 40 MG/ML Vial IV.PUSH SCH ×3 (02:34→14:51)
[2018-10-11] MEDS: guaiFENesin/Dextromethorphan 200 MG/20 MG 10 ML UDC PO SCH ×3 (05:36→18:01)
[2018-10-11] MEDS: Benzonatate 100 MG Capsule PO PRN ×2 (05:38→14:52)
[2018-10-11] MEDS: Azithromycin 250 MG Tablet PO SCH (09:11)
[2018-10-11] MEDS: Enoxaparin Inj 40 MG/0.4 ML Syringe SQ SCH (09:17)
--- NOTE | 2018-10-11 16:58 | P.PNIM ---
Subjective Interval history: Follow up for COPD exacerbation. Patient is doing much better today. No fever, chills. With mucomyst neb treatments, she feels her thick cough is improved. Currently on 4L but saturating around 95%. Physical Exam Vital signs: Last Vital Signs Temp 97.3 F L 10/11/18 08:00 Pulse 95 H 10/11/18 12:53 Resp 16 10/11/18 12:53 BP 116/70 10/11/18 08:00 Pulse Ox 92 L 10/11/18 08:00 Intake & Output 10/09/18 10/10/18 10/11/18 10/12/18 06:59 06:59 06:59 06:59 Intake Total 480 / 480 1200 / 1200 920 / 920 Balance 480 / 480 1200 / 1200 920 / 920 Weight 47.2 kg 47.2 kg Narrative: GENERAL: Alert, NAD. On Nasal Cannula. SKIN: Warm and dry. HEAD: Normocephalic. EYES: No scleral icterus. No injection or drainage. NECK: Supple, trachea midline. No JVD or lymphadenopathy. CARDIOVASCULAR: Regular rate and rhythm without murmurs, gallops, or rubs. RESPIRATORY: Moderate air entry, Diffuse coarse breath sound. No accessory muscle use. GASTROINTESTINAL: Abdomen soft, non-tender, nondistended. MUSCULOSKELETAL: No cyanosis, or edema. BACK: Nontender without obvious deformity. No CVA tenderness. Results Labs CBC & Chem 7: 10/07/18 20:52 10/07/18 20:52 Assessment and Plan (1) COPD exacerbation: Code(s): J44.1 - Chronic obstructive pulmonary disease with (acute) exacerbation Status: Acute Plan Ms. Hua is a 53 year old female with a history of squamous cell carcinoma of the tongue who was admitted to the hospital due to 5-day duration of worsening shortness of breath. Pulmonology was consulted for COPD exacerbation. Acute exacerbation of COPD Continue scheduled and as needed DuoNeb treatment, Solu-Medrol, azithromycin. Continue nasal cannula supplemental oxygen. currently on 4L. Wean off to keep O2 sat > 90%. Added Mucomyst nebulizer treatment Continue Robitussin for cough -Discussed with RT - we can probably wean down to 3L of O2 to maintain O2 sat around 90%. History of squamous cell tongue cancer No acute issues. Chronic pain Patient currently is receiving [place] 10 mg / 325 mg every 6 hours as needed. Patient apparently has appointment to see outpatient pain management physician. Patient requests to change pain medication to oxycodone and long-acting morphine. I advised patient that she needs to follow-up with her pain management physician. Full code. Lovenox 40 mg daily for DVT prophylaxis. Discharge plan: Dr. Sharma will be back on 10/12/2018. Patient can likely be discharged home on 10/12/2018. She has home O2. Progress Note: Quality VTE Deep Vein Thrombosis/Pulmonary Embolism Present on Admission: No
--- NOTE | 2018-10-11 20:35 | P.PNPL ---
Subjective Interval history: 53 YOWF with Ca tongue, s/p partial glossectomy, radiation treatment Has cough, congestion Still has wheezing no fever No sputum No new complaint Physical Exam Vital signs: Vital Signs 10/11/18 00:00 10/11/18 07:23 10/11/18 08:00 Temperature 97 F L 97.3 F L Pulse Rate 90 77 87 Respiratory Rate 18 16 18 Blood Pressure 148/83 H 116/70 Pulse Oximetry 93 L 98 92 L 10/11/18 12:00 10/11/18 12:53 10/11/18 16:00 Temperature 97.2 F L 97.2 F L Pulse Rate 74 95 H 77 Respiratory Rate 18 16 18 Blood Pressure 161/91 H 173/83 H Pulse Oximetry 90 L 93 L 10/11/18 18:01 10/11/18 18:07 10/11/18 20:20 Temperature Pulse Rate 72 Respiratory Rate 18 18 Blood Pressure 150/60 H Pulse Oximetry 92 L Intake & Output 10/11/18 10/11/18 10/12/18 06:59 18:59 06:59 Intake Total 460 / 460 1020 / 1020 Balance 460 / 460 1020 / 1020 Weight 47.2 kg Intake: Oral 460 / 460 1020 / 1020 Other: # Voids 2 3 Date of Last Bowel Movement 10/10/18 10/10/18 # Bowel Movements 1 0 GENERAL: MBMN NAD SKIN: Warm and dry. HEAD: Normocephalic. EYES: No scleral icterus. No injection or drainage. NECK: Supple, trachea midline. No JVD or lymphadenopathy. CARDIOVASCULAR: Regular rate and rhythm without murmurs, gallops, or rubs. RESPIRATORY: Breath sounds equal bilaterally. No accessory muscle use. GASTROINTESTINAL: Abdomen soft, non-tender, nondistended. MUSCULOSKELETAL: No cyanosis, or edema. BACK: Nontender without obvious deformity. No CVA tenderness. Assessment and Plan - Plan IMPRESSION: 1. Chronic obstructive pulmonary disease exacerbation. 2. Bronchitis. 3. History of cancer of the tongue, status post partial glossectomy, neck dissection, and radiation treatment. 4. History of nicotine use. 5. Alcohol use in the past. PLAN: Aerosol nebs DC Solumedrol Pred 10 mg po tid Cont Abx Supplement 02 Robitussin DM cough syp [place] for Pain Mucomyst nebs
[2018-10-12] MEDS: Benzonatate 100 MG Capsule PO PRN ×2 (00:09→09:18)
[2018-10-12] MEDS: guaiFENesin/Dextromethorphan 200 MG/20 MG 10 ML UDC PO SCH ×3 (00:09→12:17)
[2018-10-12 09:09] VITALS: TEMP 96.8; O2SAT 95
[2018-10-12] MEDS: predniSONE 10 MG Tablet PO SCH ×2 (09:19→12:17)
[2018-10-12] MEDS: Azithromycin 250 MG Tablet PO SCH (09:19)
[2018-10-12] MEDS: Enoxaparin Inj 40 MG/0.4 ML Syringe SQ SCH (09:19)
[2018-10-12 09:21] VITALS: BP 150/80
--- NOTE | 2018-10-12 10:19 | P.DS ---
Date of admission: 10/08/18 00:32 Primary care physician: Joseph Sharma DO Brief History from admission: 53-year-old female patient with history of tongue cancer status post treatment, with radiation as well as chronic neck pain, PEG tube, COPD presented to the ER with flulike symptoms for several days, coughing with yellow phlegm production , increased dyspnea on exertion and shortness of breath. She states she has been having sweats but she denies any fevers, vomiting, or other symptoms. DS: Diagnosis - Discharge Diagnosis (1) COPD exacerbation Status: Acute DS: Summary Hospital Course: 53 YOWF with Ca tongue, s/p partial glossectomy, radiation treatment admitted for Copd exacerbation, pulmonary consulted. Treated with Iv Solu Medrol transitioned to Po prednisone bronchodilators, oxygen support. Has home o2. - Time Spent with Patient Total time spent providing and/or coordinating discharge services: 25 Less than 30 minutes - Quality: AMI Clinical Trial Participant: No - Quality: Stroke Symptom Onset Unknown: No - Quality: VTE Is this test being ordered to rule out VTE?: No Deep Vein Thrombosis/Pulmonary Embolism Present on Admission: No Exam Vital signs: Vital Signs 10/11/18 12:00 10/11/18 12:53 10/11/18 16:00 Temperature 97.2 F L 97.2 F L Pulse Rate 74 95 H 77 Respiratory Rate 18 16 18 Blood Pressure 161/91 H 173/83 H Pulse Oximetry 90 L 93 L 10/11/18 18:01 10/11/18 18:07 10/11/18 20:00 Temperature 97.9 F Pulse Rate 77 Respiratory Rate 18 20 Blood Pressure 150/60 H 155/92 H Pulse Oximetry 90 L 10/11/18 20:20 10/12/18 00:00 10/12/18 00:08 Temperature 97.2 F L Pulse Rate 72 78 Respiratory Rate 18 20 18 Blood Pressure 152/86 H Pulse Oximetry 92 L 91 L 10/12/18 04:00 10/12/18 06:53 10/12/18 07:19 Temperature 97.4 F L Pulse Rate 62 76 Respiratory Rate 20 18 16 Blood Pressure 160/80 H Pulse Oximetry 95 96 10/12/18 08:00 10/12/18 09:21 Temperature 96.8 F L Pulse Rate 80 Respiratory Rate 16 Blood Pressure 171/44 H 150/80 H Pulse Oximetry 95 Intake & Output 01/07/19 01/08/19 01/08/19 18:59 06:59 18:59 Intake Total 1020 / 1020 480 / 480 Balance 1020 / 1020 480 / 480 Weight 47.8 kg Intake: Oral 1020 / 1020 480 / 480 Other: # Voids 3 2 Date of Last Bowel Movement 10/10/18 10/10/18 # Bowel Movements 0 0 - Constitutional no acute distress - Routine HEENT Exam Eye: Present: PERRL ENT: Present: mucous membranes moist - Routine Respiratory Exam Present: wheezes - Routine Cardiovascular Exam Present: S1, S2 - Routine Abdominal Exam Present: soft, normoactive bowel sounds - Routine Skin Exam Present: dry, warm - Routine Neurological Exam Present: alert, oriented X3 Results Procedures completed during hospitalization: n/a - Impressions ITS Impressions Chest X-Ray 10/07/18 20:47 CONCLUSION: 1. No acute abnormality or significant interval change. Discharge Plan - Discharge Disposition Patient Disposition: Discharge Home - Discharge Condition Condition: Stable - Discharge Order Discharge Orders: Discharge Order (Routine); Ordered 10/12/18 Ordered By: Lexie Guerra - Discharge Details Anticipated Discharge Date: 10/08/18 - Physicians Team Primary Care Provider: Joseph Sharma Attending Provider: Joseph Sharma Other Providers: Sánchez Dillon MD
[2018-10-12 12:35] VITALS: PULSE 73; RESP 16
== END 2018-10-12 13:50 | disposition home or self-care (01) | DRG 192 ==
LOC: NEPC 18:57 → NEDA 10-08 00:32 → NEDH 10-08 04:19 → N04 10-08 15:26
PROVIDERS: ADMIT Family Medicine; ATTEND Family Medicine
CPT/HCPCS: 71010; 71045; 80053; 83520; 83880; 84484; 85025; 85379; 87275; 87276; 87804; 90471; 90658; 90686; 90774; 90784; 94640; 94664; 94665; 96374; 99285; C8952; G0008; J1650; J2920; J2930; J7506; J7512; Q2038